=== PATIENT | male | born 1970 | race Caucasian/White ===

== ENCOUNTER → 2022-12-14 09:49 | Outpatient (BNVA) | payer BC, SELFPAY | PROVIDERS: PCP Registered Nurse; Visit Provider Dietitian, Registered | DX: E11.9 Type 2 diabetes mellitus without complications (principal); Z79.84 Long term (current) use of oral hypoglycemic drugs; Z71.3 Dietary counseling and surveillance | CPT/HCPCS: 97802 ==

== ENCOUNTER 2022-12-14 09:50 | Outpatient (AMB) | payer BC, SELFPAY ==
[2022-12-14 10:02] VITALS: BMI 34.3
--- NOTE | 2022-12-14 10:02 | A.OFFVIS_ITS ---
Intake VS Expanded 12/14/22 10:02 12/28/22 08:42 Height 5 ft 8 in 5 ft 8 in Weight 225 lb 4.999 oz 225 lb BMI 34.3 34.2 Intake Visit Reasons: DM HPI Nutrition Presentation Details PT presents for MNT fort T2DM. Patient was referred by Ashley Walls NP from [facility]. Patient reports he is currently on metformin 1000 mg twice a day and also on Trulicity 3 mg per week. 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 Pt reports gradually working on weight loss, reports he was 243 lbs > 4 m ago , by working on reducing simple sugars and keeping physically active. Participates in gym 4 times a week, 45 min to 1 hr Pt reports working on reducing simple carbs. Has 3 meals per day , working on choosing high fiber source sof foods Typical meal intake B: oatmeal made with low fat milk or , omelette with veg on whole wheat bread, water or diluted juice with water , L: sushi/ fruits D: steak potatoes, or potato , chicken Snack: fruits, cranberries , pastries HOW-Pqejjbq-Xm.Jeor Equation Height 5 ft 8 in Weight 225 lb Resting Metabolic Rate 1838.38 Calculated Activity Level Mild Activity Calories Needed to Maintain Weight 2527.77 Diagnosis Nutrition problem #1 overweight/obesity and food nutri know defi As related to (etiology) #1 diagnosis (t2dm, bmi at 34.2 on 11/2022) Monitoring/Goals Nutrition problem monitoring level of knowledge/skill and weight Nutrition goal/outcome list 3 high fiber foods (reduce foods with coloring) Learning/Education Readiness to learn good Stages of change action Educational materials provided Yes (meal planning , reduce food colorings ) Most Recent Diabetes Results: No Data to Display Assessment & Plan Assessment & Plan (1) T2DM (type 2 diabetes mellitus): Code(s): E11.9 - Type 2 diabetes mellitus without complications Qualifiers: Diabetes mellitus nursing home insulin use: without terminal worker use Plan: wt : 102 kg(11/2022) Est kcal needs as per MSJ: 2500 (40% carb, 30% protein/fat) Est fluid needs as per 25-30 ml/d: 2600 Est prot per day as per 1 g/kg bw: 102g Recommend fiber intake : 8-10 g per day and gradually increase to 25-28 g per day for women and 35-38 g for men or as tolerated Recommend sodium intake per day : less than 2000 mg Educated patient on: ( R = reviewed V = verbalizes understanding N/R = needs review N/A = not applicable * Food sources of carbohydrate, adequate serving sizes and its role in various health conditions: R V * Differences between complex carbohydrates a simple carbohydrates, role of fiber in diet: R V * Differences between types of fats and role in diet (mono on saturated fat fatty acids, saturated fatty acids, trans fats): R * Food sources of sodium in salt and healthy modifications for heart health in kidney health: R * Vitamins and minerals: R * Healthy plate method concept: R V * Physical activity: Benefits a precaution: R V * Hypoglycemia protocol (rule of 15): V * Dietary prevention of Hyperglycemia: V * food coloring /additives: R Patient Instructions: Follow healthy plate method at dinner , choosing and including high fiber sources of foods Reduce on foods with artificial food colorings Coding Level of Care Code Nutr Indiv Intake (09170) Diagnoses T2DM (type 2 diabetes mellitus) E11.9 Diabetes mellitus nursing home insulin use: without nursing home use Time Spent (min) 30
[2022-12-28 08:42] VITALS: BMI 34.2
== END 2022-12-14 10:39 | disposition home or self-care (01) ==
PROVIDERS: PCP Registered Nurse; Visit Provider Dietitian, Registered
DX: E11.9 Type 2 diabetes mellitus without complications (principal)

== ENCOUNTER 2023-06-13 11:14 | Outpatient (AMB) | payer BC, SELFPAY ==
[2023-06-13 11:21] VITALS: BMI 33.9
--- NOTE | 2023-06-13 11:21 | A.OFFVIS_ITS ---
Intake VS Expanded 06/13/23 11:21 Height 5 ft 8 in Weight 223 lb 1.725 oz BMI 33.9 Intake Visit Reasons: DM2/CONFIRMED HPI Nutrition Presentation Details Pt presents MNT f/u for T2DM Pt reports doing well, having 3 meals per day following healthy plate method > 50 % of the time Pt reports his FBG range from 80-90 mg/dl , 2 hours after meals less than 180 mg or less 100% of the time. Reports no hypoglycemia Pt reports working on reducing intake of foods with artificial colors. keeping hydrates > 64 oz of fluids per day choosing low sugar/caffeine free for most part fish at least twice/wk Increasing on physical activity - 1 hr cross training, 4 times/wk Most Recent Diabetes Results: No Data to Display Assessment & Plan Assessment & Plan (1) T2DM (type 2 diabetes mellitus): Code(s): E11.9 - Type 2 diabetes mellitus without complications Qualifiers: Diabetes mellitus custodial insulin use: without custodial use Plan: wt : 102 kg(11/2022), 101 kg 05/2023) Est kcal needs as per MSJ: 2500 (40% carb, 30% protein/fat) Est fluid needs as per 25-30 ml/d: 2600 Est prot per day as per 1 g/kg bw: 102g Recommend fiber intake : 8-10 g per day and gradually increase to 25-28 g per day for women and 35-38 g for men or as tolerated Recommend sodium intake per day : less than 2000 mg Educated patient on: ( R = reviewed V = verbalizes understanding N/R = needs review N/A = not applicable * Food sources of carbohydrate, adequate serving sizes and its role in various health conditions: R V * Differences between complex carbohydrates a simple carbohydrates, role of fiber in diet: R V * Differences between types of fats and role in diet (mono on saturated fat fatty acids, saturated fatty acids, trans fats): R * Food sources of sodium in salt and healthy modifications for heart health in kidney health: R * Vitamins and minerals: R * Healthy plate method concept: R V * Physical activity: Benefits a precaution: R V * Hypoglycemia protocol (rule of 15): V * Dietary prevention of Hyperglycemia: V * food coloring /additives: R Patient Instructions: Continue working on following healthy plate method Choose foods sources of monounsaturated fats over saturated fats, choosing foods with omega 3s ( fish, seeds, algae ) Keep phyiscally active goal 150 min/wk or more or as tolerated Coding Level of Care Code Nutr Indiv Subseq (59257) Diagnoses T2DM (type 2 diabetes mellitus) E11.9 Diabetes mellitus custodial insulin use: without alteration tailor apprentice use Time Spent (min) 25
== END 2023-06-13 11:47 | disposition home or self-care (01) ==
PROVIDERS: PCP Registered Nurse; Visit Provider Dietitian, Registered
DX: E11.9 Type 2 diabetes mellitus without complications (principal)

== ENCOUNTER → 2023-06-13 11:14 | Outpatient (BNVA) | payer BC, SELFPAY | PROVIDERS: PCP Registered Nurse; Visit Provider Dietitian, Registered | DX: E11.9 Type 2 diabetes mellitus without complications (principal); Z71.3 Dietary counseling and surveillance | CPT/HCPCS: 97803 ==

== ENCOUNTER 2023-12-12 11:14 | Outpatient (AMB) | payer BC, SELFPAY ==
--- NOTE | 2023-12-12 11:32 | A.OFFVIS_ITS ---
VS Expanded 12/12/23 11:33 Height 5 ft 8 in Weight 212 lb 8.41 oz BMI 32.3 Intake Visit Reasons: T2DM/CONFIRMED Nutrition Presentation Details: Pt presents for MNT f/u for T2DM Pt reports having good appetite Reports having had recent blood transfusion related to anemia. Pt has hx of chronic lymphocytic leukemia BS Monitoring Most Recent Diabetes Results: No Data to Display Assessment & Plan Assessment & Plan (1) T2DM (type 2 diabetes mellitus): Code(s): E11.9 - Type 2 diabetes mellitus without complications Category: Medical Qualifiers: Diabetes mellitus [facility] use: without [facility] use Plan: wt : 102 kg(11/2022), 101 kg 05/2023), 96kg (11/2023) Est kcal needs as per MSJ: 2500 (40% carb, 30% protein/fat) Est fluid needs as per 25-30 ml/d: 2600 Est prot per day as per 1 g/kg bw: 102g Recommend fiber intake : 8-10 g per day and gradually increase to 25-28 g per day for women and 35-38 g for men or as tolerated Recommend sodium intake per day : less than 2000 mg Educated patient on: ( R = reviewed V = verbalizes understanding N/R = needs review N/A = not applicable * Food sources of carbohydrate, adequate serving sizes and its role in various health conditions: R V * Differences between complex carbohydrates a simple carbohydrates, role of fiber in diet: R V * Differences between types of fats and role in diet (mono on saturated fat fatty acids, saturated fatty acids, trans fats): R * Food sources of sodium in salt and healthy modifications for heart health in kidney health: R * Vitamins and minerals: R * Healthy plate method concept: R V * Physical activity: Benefits a precaution: R V * Hypoglycemia protocol (rule of 15): V * Dietary prevention of Hyperglycemia: V * food coloring /additives: R Patient Instructions: Include iron rich foods in your diet along with vitamin c rich foods for better absorption see list of iron rich food options Coding Level of Care Code Nutr Indiv Subseq (39945) Diagnoses T2DM (type 2 diabetes mellitus) E11.9 Diabetes mellitus [facility] insulin use: without termite control technician use Time Spent (min) 20
[2023-12-12 11:33] VITALS: BMI 32.3
== END 2023-12-12 11:51 | disposition home or self-care (01) ==
PROVIDERS: PCP Registered Nurse; Visit Provider Dietitian, Registered
DX: E11.9 Type 2 diabetes mellitus without complications (principal)

== ENCOUNTER → 2023-12-12 11:14 | Outpatient (BNVA) | payer BC, SELFPAY | PROVIDERS: PCP Registered Nurse; Visit Provider Dietitian, Registered | DX: E11.9 Type 2 diabetes mellitus without complications (principal); Z71.3 Dietary counseling and surveillance | CPT/HCPCS: 97803 ==

== ENCOUNTER 2024-06-11 12:40 | Outpatient (AMB) | payer BC, SELFPAY ==
--- OUTSIDE RECORDS SUMMARY | 2024-06-11 12:59 | XMS_ITS ---
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 Immune Globulin Intravenous (IGIV) - every 3 weeks* Plan Start Date:03/07/2024 Plan Provider:Mary Post MD Linked Problems Hypogammaglobulinemia (CMS/H CC)Chronic lymphocytic leukemia (CMS/HCC) Treatment Medications No medications scheduled. OUTPATIENT TRANSFUSION (PRN) & OUTPATIENT TRANSFUSION ( ONCE)* Plan Start Date: 02/29/2024 Plan Provider:Mary Post MD Linked Problems Chronic lymphocytic leukemia (CMS/HCC) Treatment Medications No medications scheduled. Past Plans No past plan information found. Radiation Treatments * No radiation treatments are documented for this patient in [facility]. Treatments may have been administered in another system.
--- OUTSIDE RECORDS SUMMARY | 2024-06-11 12:59 | XMS_ITS | Encounter Summary ---
Author Organization [facility] [place] [facility] [place] [address] Care Team Providers Care Sr. Strategic Sourcing Manager Name Role Phone Alicia Pillai MD Primary Care Provider Encounter Details Date Type Department Care Team (Latest Contact Info) Description 02/15/2024 8:00 AM EDT Hospital Encounter TH HISTORIC ENCOUNTERS EASTERN CONVERSION ONLY Nonfamilial hypogammaglobulinemia (CMS/HCC) Social History Tobacco Use Types Packs/Day Years [...] Care Team (Late st Contact Info) Description 06/20/2024 9:30 AM EST Appointment [facility] [address] [place] [address] 2[address] [place] [phone] 07/28/2024 3:30 PM EDT Office Visit [facility] Hematology Oncology [address] [place] [phone] Mirian-Mary Baca MD [address] [place] [address] 09/29/2024 1:00 PM EDT Office Visit Adult Medicine - [place] [address] [place] [phone] Katt Jain PA [address] [place] [address] documented as of this encounter Procedures Procedure Name Priority Date/Time Associated Diagnosis Comments ECG 02/15/2024 documented in this encounter Results * ECG (02/15/2024) us Provider Onbase CV HISTORICAL CONV PROCEDURES Final Result documented in this encounter Visit Diagnoses Diagnosis Nonfamilial hypogammaglobulinemia (CMS/HCC) documented in this encounter Care Teams Sr. Strategic Sourcing Manager Relationship Specialty Start Date End Date Alicia Pillai MD [address] [place] [address] PCP - General Internal Medicine 02/04/15 documented as of this encounter
--- OUTSIDE RECORDS SUMMARY | 2024-06-11 12:59 | XMS_ITS | Encounter Summary ---
Author Organization [facility] [place] [address] Care Team Providers Care Edge Stitcher Name Role Phone Alicia Pillai MD Primary Care Provider [phone] Encounter Details Date Type Department Care Team (Latest Contact Info) Description 02/08/2024 9:30 AM EDT Hospital Encounter TH HISTORIC ENCOUNTERS EASTERN CONVERSION ONLY Chronic lymphocytic leukemia of B-cell type not having achieved remission (CMS/[facility]) Social History Tobacco Use Types Packs/Day Years [...] Info) Description 06/20/2024 9:30 AM EST Appointment [facility] [address] [facility] 2[address] [place] [address] 07/28/2024 3:30 PM EDT Office Visit [facility] Hematology Oncology [address] [place] [phone] Mirian-Mary Baca MD [address] [place] [address] 09/29/2024 1:00 PM EDT Office Visit Adult Medicine - [place] [address] [place] [phone] Katt Jain PA [address] [place] [address] documented as of this encounter Visit Diagnoses Diagnosis Chronic lymphocytic leukemia of B-cell type not having achieved remission (CMS/HCC) documented in this encounter Care Teams Edge Stitcher Relationship Specialty Start Date End Date Ailcia Pillai MD [address] [facility] [place] [address] PCP - General Internal Medicine 02/04/15 documented as of this encounter
--- OUTSIDE RECORDS SUMMARY | 2024-06-11 12:59 | XMS_ITS ---
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 Overview: Overview: Initial rx with Celebrex and sulfasalazine; changed to methotrexate by dermatology 06/29; change to Enbrel started 03/01 - stopped 12/03 when CLL detected Overview: Psoriasis with arthropathy Current Oncology Plans [facility] BCN OP RITUXIMAB (IV/SC) WEEKLY X4* Plan Start Date:12/05/2023 Plan Provider:Mary Jovel MD Linked Problems Chronic lymphocytic leukemia (HCC) Treatment Medications Current Day (Day 8 , Cycle 1 - Planned for 12/13/2023) Next Day (Day 15, Cycle 1 - Planned for 12/20/2023) acetaminophen (TYLENOL)albuterol (PROVENTIL)dexamethasone (DECADRON)dexamethasone (DECADRON) DOSE > 10 mg IVPBdexamethasone (DECADRON) IVPB in 50 mLdiphenhydrAMINE (BENADRYL)EPINEPHrinefamoti dine (PEPCID)famotidine (PF) (PEPCID)hydrocortisone (SOLU-CORTEF) IVHydrocortisone Sod Suc (PF) (Solu-CORTEF)riTUXimab-hyal uronidase (RITUXAN HYCELA) 1400-25752 MG -UT/11.7MLriTUXimab-pvvr (RUXIENCE) infusion (Outpatient record)Saline Flush 0.9 %sodium chloride (NS) 0.9 %sodium chloride 0.9% bolus (NS) acetaminophen (TYLENOL) tablet 650 mgalbuterol (PROVENTIL) nebulizer solution 2.5 mgdexAMETHasone Sodium Phosphate (DECADRON) 20 mg in sodium chloride (NS) 0.9 % IVPBdiphenhydrAMINE (BENADRYL) capsule 25 mgdiphenhydrAMINE (BENADRYL) injection 50 mgEPINEPHrine (Anaphylaxis) (ADRENALIN) 1 mg/ml (1:1000) inj amp/vial 0.3 mgfamotidine (PEPCID) 20 mg in water for injection, sterile 5 mL Injectionfamotidine (PEPCID) tablet 20 mghydrocortisone sodium succinate (Solu-CORTEF) injection (PF) 100 mgriTUXimab-hyaluronidase (RITUXAN HYCELA) 1400-53382 MG -UT/11.7ML subcutaneous injection 1,400 mgSaline Flush 0.9 % injection 1 Syringesodium chloride 0.9% (NS) infusionsodium chloride 0.9% bolus (NS) 500 mL acetaminophen (TYLENOL) tablet 650 mgalbuterol (PROVENTIL) nebulizer solution 2.5 mgdexamethasone (DECADRON) tablet 12 mgdexAMETHasone Sodium Phosphate (DECADRON) 20 mg in sodium chloride (NS) 0.9 % IVPBdiphenhydrAMINE (BENADRYL) capsule 25 mgdiphenhydrAMINE (BENADRYL) injection 50 mgEPINEPHrine (Anaphylaxis) (ADRENALIN) 1 mg/ml (1:1000) inj amp/vial 0.3 mgfamotidine (PEPCID) 20 mg in water for injection, sterile 5 mL Injectionfamotidine (PEPCID) tablet 20 mghydrocortisone sodium succinate (Solu-CORTEF) injection (PF) 100 mgriTUXimab-hyaluronidase (RITUXAN HYCELA) 1400-52258 MG -UT/11.7ML subcutaneous injection 1,400 mgSaline Flush 0.9 % injection 1 Syringesodium chloride 0.9% (NS) infusionsodium chloride 0.9% bolus (NS) 500 mL Other Current Plans [facility] IVIG (GAMMAGARD) (ADULT)* Plan Start Date:03/17/2022 Plan Provider:Mary Jovel MD Linked Problems Hypogammaglobulinemia (HCC) Treatment Medications acetaminophen (TYLENOL)albut ladonna (PROVENTIL)dexamethasone (DECADRON)diphenhydrAMINE (BENADRYL)EPINEPHrine (Anaphylaxis) (ADRENALIN)famotidine (PF) (PEPCID)Hydrocortisone Sod Suc (PF) (Solu-CORTEF)Immune Globulin (Human)immune globulin (Human) (GAMMAGARD)meperidine (DEMEROL) 25 MG/MLSaline Flush 0.9 %sodium chloride (NS) 0.9 %sodium chloride 0.9% bolus (NS) Past Plans Radiation Treatments * No radiation treatments are documented for this patient in [facility]. Treatments may have been administered in another system.
--- OUTSIDE RECORDS SUMMARY | 2024-06-11 12:59 | XMS_ITS | Encounter Summary ---
Author Organization [facility] [place] [address] Care Team Providers Care Drawing Kiln Operator Name Role Phone Alicia Pillai MD Primary Care Provider [phone] Encounter Details Date Type Department Care Team (Latest Contact Info) Description 02/01/2024 9:30 AM EDT Hospital Encounter TH HISTORIC ENCOUNTERS EASTERN CONVERSION ONLY Chronic lymphocytic leukemia of B-cell type not having achieved remission (CMS/[facility]) Social History Tobacco Use Types Packs/Day Years [...] 4:33 PM Encounter Date: 02/01/2024 Status: Signed Machinery Rigger: Jenni Clifton RN (Registered Nurse) Pt arrives [...] Info) Description 06/20/2024 9:30 AM EST Appointment [facility] [address] [place] [phone] 07/28/2024 3:30 PM EDT Office Visit [facility] Hematology Oncology [address] [place] [phone] Mirian-Mary Baca MD [address] [place] [address] 09/29/2024 1:00 PM EDT Office Visit Adult Medicine [facility] [address] [place] [phone] Katt Jain PA [address] [place] [address] documented as of this encounter Visit Diagnoses Diagnosis Chronic lymphocytic leukemia of B-cell type not having achieved remission (CMS/HCC) documented in this encounter Care Teams Drawing Kiln Operator Relationship Specialty Start Date End Date Alicia Pillai MD [address] [place] [address] PCP - General Internal Medicine 02/04/15 documented as of this encounter
--- OUTSIDE RECORDS SUMMARY | 2024-06-11 12:59 | XMS_ITS | Encounter Summary ---
Author Organization [facility] [place] [address] Care Team Providers Care Knot Cutter Name Role Phone Alicia Pillai MD Primary Care Provider [phone] Encounter Details Date Type Department Care Team [...] Info) Description 06/20/2024 9:30 AM EST Appointment [facility] [address] [phone] 07/28/2024 3:30 PM EDT Office Visit [facility] Hematology Oncology [address] [place] [phone] Mirian-Mary Baca MD [address] [place] [address] 09/29/2024 1:00 PM EDT Office Visit Adult Medicine - [place] [address] [place] [phone] Katt Jain PA [address] [place] [address] documented as of this encounter Visit Diagnoses Diagnosis Nonfamilial hypogammaglobulinemia (CMS/HCC) documented in this encounter Care Teams Knot Cutter Relationship Specialty Start Date End Date Alicia Pillai MD [address] [place] [address] PCP - General Internal Medicine 02/04/15 documented as of this encounter
--- OUTSIDE RECORDS SUMMARY | 2024-06-11 12:59 | XMS_ITS | Clinical Summary ---
Author Organization [facility] Address [address] [place] [address] Phone Care Team Providers Care Seating And Mobility Technologist Name Role Phone Alicia Pillai MD Primary Care Provider [phone] Allergies Active Allergy Reactions Criticality Noted Date Comments Amoxicillin Rash Medium 05/22/2010 Other Reaction(s): Rash/Dermatitis Moxifloxacin Nausea And Vomiting 10/12/2014 Other Reaction(s): OTHER Pt reports dizzyness, lightheadedness, passing out. Pt reports dizzyness, lightheadedness, passing out. Medications calcipotriene- betamethasone 0.005-0.064 % foam Apply 1 Application topically 1 (one) time each day. 8 Active celecoxib (CeleBREX) 200 mg capsule TAKE 1 CAPSULE EVERY DAY NEEDED FOR PAIN WITH FOOD 9 Active LORazepam (ATIVAN) 0.5 mg tablet Take 1 tablet (0.5 mg total) by mouth every 6 hours as needed. 4 Active omeprazole (PriLOSEC) [address] capsule Take 1 capsule (20 mg total) by mouth 1 (one) time each day. 4 Active predniSONE (DELTASONE) 20 mg tablet Take 1 tablet (20 mg total) by mouth. 4 Active metFORMIN (GLUCOPHAGE) 1,000 mg tablet TAKE 1 TABLET BY MOUTH TWICE A DAY 180 tablet 1 4 Active atorvastatin (LIPITOR) 10 mg tablet TAKE 1 TABLET BY MOUTH EVERY DAY 90 tablet 1 4 Active venetoclax (VENCLEXTA) 10 mg-50 mg- 100 mg Week 1 - Take 20 mg po once daily. Week 2 - Take 50 mg po once daily Week 3 - Take 100 mg po once daily Week 4 - Take 200 mg po once daily. Week 5 - Take 400 mg po once daily. 4 Active albuterol HFA (PROAIR HFA ; PROVENTIL HFA ; VENTOLIN HFA) 90 mcg/actuation inhaler INHALE 2 PUFFS INTO THE LUNGS EVERY 6 HOURS NEEDED FOR COUGH, WHEEZING OR SHORTNESS OF BREATH. 25.5 each 4 Active ipratropium (ATROVENT) 42 mcg (0.06 %) nasal spray SPRAY 2 SPRAYS BY NASAL ROUTE 4 TIMES DAILY. 45 mL 4 Active Venclexta 100 mg tablet TAKE 4 TABLETS (400 MG) BY MOUTH ONCE DAILY. TAKE WITH A MEAL AND WATER. 120 tablet 4 Active Venclexta 100 mg tablet TAKE 4 TABLETS (400 MG) BY MOUTH ONCE DAILY. TAKE WITH A MEAL AND WATER. 120 tablet 5 4 Active allopurinoL (ZYLOPRIM) 300 mg tablet TAKE 1 TABLET BY MOUTH EVERY DAY 90 tablet 5 Active sulfamethoxazo le-trimethopri m (BACTRIM,SEPTR A) 400-80 mg per tablet TAKE 1 TABLET BY MOUTH DAILY. 30 tablet 5 5 Active FreeStyle Inga 3 Plus Sensor device 1 EACH BY DOES NOT APPLY ROUTE EVERY 14 DAYS. 6 each 5 Active Trulicity 3 mg/0.5 mL pen injector injectionIndic ations:Type 2 diabetes mellitus without complication, without long-term current use of insulin ([facility]) Inject 0.5 mL (3 mg total) under the skin every 7 (seven) days. 6 mL 5 09/09/19 25 Active Trulicity 3 mg/0.5 mL pen injector injection INJECT 1 DEVICE INTO THE SKIN EVERY 7 DAYS. 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 Overview (03/06/2024): Initial rx with Celebrex and sulfasalazine; changed to methotrexate by dermatology 06/29; change to Enbrel started 03/01 - stopped 12/03 when CLL detected Encounters Date Type Department Care Team Description 06/10/2024 11:00 AM EST Office Visit Adult Medicine [address] [phone] Katt Jain PA Type 2 diabetes mellitus without complication, without long-term current use of insulin (CMS/HCC) (Primary Dx) 05/30/2024 12:00 PM EST - 05/30/2024 11:59 PM EST Hospital Encounter [facility] [address] [place] [phone] Mary Dill MD Chronic lymphocytic leukemia (CMS/HCC) (Primary Dx); Hypogammaglobulinemia (CMS/HCC); Anemia in neoplastic disease; Psoriasis with arthropathy (CMS/HCC) Discharge Disposition: Home or Self Care 05/30/2024 11:30 AM EST Office Visit [facility] H[facility] Oncology [address] [place] [phone] Mary Dill MD Chronic lymphocytic leukemia (CMS/HCC) (Primary Dx); Psoriasis with arthropathy (CMS/HCC); Anemia in neoplastic disease; Hypogammaglobulinemia (CMS/HCC); 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; Cervical lymphadenopathy 05/16/2024 9:30 AM EST - 05/16/2024 11:59 PM EST Hospital Encounter [facility] [address] [place] [phone] Mary Dill MD Chronic lymphocytic leukemia (CMS/HCC) (Primary Dx); Anemia in neoplastic disease; Cervical lymphadenopathy; Hypogammaglobulinemia (CMS/HCC); Transfusion-dependent anemia Discharge Disposition: Home or Self Care 05/09/2024 9:28 AM EST - 05/09/2024 11:59 PM EST Hospital Encounter [facility] [address] [place] [phone] Mary Dill MD Anemia in neoplastic disease (Primary Dx); Hypogammaglobulinemia (CMS/HCC); Chronic lymphocytic leukemia (CMS/HCC); Transfusion-dependent anemia Discharge Disposition: Home or Self Care 05/02/2024 9:30 AM EST - 05/02/2024 11:59 PM EST Hospital Encounter [facility] [address] [place] [phone] Mary Dill MD Chronic lymphocytic leukemia ([facility]/HCC) Discharge Disposition: Home or Self Care 04/25/2024 9:30 AM EST - 04/25/2024 11:59 PM EST Hospital Encounter [facility] [address] [place] [phone] Chronic lymphocytic leukemia (CMS/HCC) Discharge Disposition: Home or Self Care 04/18/2024 9:30 AM EST - 04/18/2024 11:59 PM EST Hospital Encounter [facility] [address] [place] [phone] Hypogammaglobulinemia (CMS/HCC) (Primary Dx); Chronic lymphocytic leukemia (CMS/HCC); Anemia in neoplastic disease; Cervical lymphadenopathy; Transfusion-dependent anemia Discharge Disposition: Home or Self Care 04/11/2024 9:30 AM EST - 04/11/2024 11:59 PM EST Hospital Encounter [facility] [address] [place] [phone] Chronic lymphocytic leukemia (CMS/HCC) Discharge Disposition: Home or Self Care 04/04/2024 11:30 AM EST Office Visit [facility] Hematology Oncology [address] [place] [phone] Mary Dill MD Chronic lymphocytic leukemia (CMS/HCC) (Primary Dx); Hypogammaglobulinemia (CMS/HCC); 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; Anemia in neoplastic disease; Transfusion-dependent anemia; Psoriasis with arthropathy (CMS/HCC) 04/04/2024 9:30 AM EST - 04/04/2024 11:59 PM EST Hospital Encounter [address] [phone] Chronic lymphocytic leukemia (CMS/HCC) (Primary Dx) Discharge Disposition: Home or Self Care 03/28/2024 9:30 AM EST - 03/28/2024 11:59 PM EST Hospital Encounter [address] [phone] Chronic lymphocytic leukemia (CMS/HCC) (Primary Dx); Hypogammaglobulinemia (CMS/HCC); Anemia in neoplastic disease; Cervical lymphadenopathy; Transfusion-dependent anemia Discharge Disposition: Home or Self Care 03/21/2024 9:30 AM EST - 03/21/2024 11:59 PM EST Hospital Encounter [address] [phone] Chronic lymphocytic leukemia (CMS/HCC) (Primary Dx) Discharge Disposition: Home or Self Care 03/17/2024 9:30 AM EST - 03/17/2024 11:59 PM EST Hospital Encounter [address] [phone] Chronic lymphocytic leukemia (CMS/HCC) (Primary Dx); Anemia in neoplastic disease; Cervical lymphadenopathy; Hypogammaglobulinemia (CMS/HCC); Transfusion-dependent anemia Discharge Disposition: Home or Self Care 03/14/2024 9:30 AM EST - 03/14/2024 11:59 PM EST Hospital Encounter [facility] [address] [place] [phone] Chronic lymphocytic leukemia (CMS/HCC) (Primary Dx); Anemia in neoplastic disease; Cervical lymphadenopathy; Hypogammaglobulinemia (CMS/HCC); Transfusion-dependent anemia Discharge Disposition: Home or Self Care from Last 3 Months Immunizations Name Administration Dates Next Due Pfizer SARS-CoV-2 COVID-19, mRNA, LNP-S, preservative free 08/26/2020,08/05/2020 Medical History Medical History Date Comments Hypogammaglobulinemia (CMS/HCC) 02/03/2024 Social History Tobacco Use Types Packs/Day Years Used Date Smoking Tobacco: Never Smokeless Tobacco: Never Tobacco Cessation:Counseling Given: Not Answered Alcohol Use Standard Drinks/Week Comments Yes 0 (1 standard drink = 0.6 oz pur e alcohol) Sex and Gender Information Value Date Recorded Sex Assigned at Male 05/02/2024 9:33 AM EST Legal Sex Male 3:23 AM EST Gender Identity Male 05/02/2024 9:33 AM EST Sexual Orientation Choose not to disclose 2024 9:33 AM EST Obstetrics History Last Filed Vital Signs Vital Sign Reading Time Taken Comments Blood Pressure 110/64 06/10/2024 10:52 AM EST Pulse 68 06/10/2024 10:52 AM EST Temperature 36.6 ??C (97.8 ??F) 06/10/2024 10:[address] Respiratory Rate 18 05/30/2024 12:20 PM EST Oxygen Saturation 98% 05/30/2024 12:20 PM EST Inhaled Oxygen Concentration - - Weight 95.7 kg (211 lb) 06/10/2024 10:52 AM EST Height 174 cm (5' 8.5 ) 06/10/2024 10:52 AM EST Body Mass Index 31.62 06/10/2024 10:52 AM EST Plan of Treatment Upcoming Encounters Date Type Department Care Team (Late st Contact Info) Description 06/20/2024 9:30 AM EST Appointment [address] [phone] 07/28/2024 3:30 PM EDT Office Visit [facility]cology [address] [place] [phone] Mary Post MD [address] [place] [phone] 09/29/2024 1:00 PM EDT Office Visit Adult Medicine - [place] [address] [place] [phone] Katt Jain PA [address] [place] [address] Health Maintenance Due Date Last Done Comments Diabetes: Annual Foot Exam 1978 Diabetes: Annual Retina Eye Exam 1978 Hepatitis B Vaccines (1 of 3 - 19+ 3-dose series) 1987 Zoster Vaccines (1 of 2) 1987 Pneumococcal Vaccine: 50+ Years (2 of 2 - PCV) 01/02/2015 01/02/2014 Pneumococcal Vaccine: Pediatrics (0 to 5 Years) and At-Risk Patients (6 to 64 Years) (2 of 2 - PCV) 01/02/2015 01/02/2014 COVID-19 Vaccine (3 - Pfizer risk series) 09/23/2020 08/26/2020, 08/05/2020 Colorectal Cancer Screening: Colonoscopy 03/31/2022 Depression Screening 03/31/2022 HIV Screening 03/31/2022 Hepatitis C Screening 03/31/2022 Social Influencers of Health Screening 03/31/2022 Diabetes: Annual Urine Albumin-Creatinine Ratio (uACR) 04/02/2022 Influenza Vaccine (#1) 2023 , 01/05/2022, 04/24/2021, Additional history exists Diabetes: Blood Sugar Control Test (HGBA1C) 05/30/2024 11/28/2023 Diabetes: Annual GFR (Glomerular Filtration Rate) 05/30/2025 05/30/2024, 05/22/2024, 05/16/2024, Additional history exists DTaP,Tdap,and Td Vaccines (3 - Td or Tdap) 11/15/2028 11/15/2018, 09/26/2004 Cholesterol Screening (Lipid Panel) 01/28/2029 01/29/2024 HIB Vaccines Aged Out No longer eligi ble based on patient's age to complete this topic HPV Vaccines Aged Out No longer eligi ble based on patient's age to complete this topic Hepatitis A Vaccines Aged Out No long er eligible based on patient's age to complete this topic IPV Vaccines Aged Out No longer eligi ble based on patient's age to complete this topic MMR Vaccines Aged Out No longer eligi ble based on patient's age to complete this topic Meningococcal ACWY Vaccine Aged Out N o longer eligible based on patient's age to complete this topic Meningococcal B Vacine Aged Out No lo nger eligible based on patient's age to complete this topic RSV Immunization Patients Under 20 months Aged Out No longer eligible based on patient's age to complete this topic Varicella Vaccines Aged Out No longer eligible based on patient's age to complete this topic Procedures Procedure Name Priority Date/Time Associated Diagnosis Comments CBC WITH AUTO DIFFERENTIAL STAT 05/30/2024 12:10 PM EST Chronic lymphocytic leukemia (CMS/HCC) C-REACTIVE PROTEIN Routine 05/30/2024 12 :10 PM EST Psoriasis with arthropathy (CMS/HCC) SEDIMENTATION RATE Routine 05/30/2024 12 :10 PM EST Psoriasis with arthropathy (CMS/HCC) IRON AND TIBC Routine 05/30/2024 12:10 PM EST Chronic lymphocytic leukemia (CMS/HCC) Anemia in neoplastic disease FERRITIN Routine 05/30/2024 12:10 PM EST Chronic lymphocytic leukemia (CMS/HCC) Anemia in neoplastic disease CBC AND DIFFERENTIAL STAT 05/30/2024 12:10 PM EST Chronic lymphocytic leukemia (CMS/HCC) LACTATE DEHYDROGENASE STAT 05/30/2024 12:10 PM EST Chronic lymphocytic leukemia (CMS/HCC) URIC ACID STAT 05/30/2024 12:10 PM EST Chronic lymphocytic leukemia (CMS/HCC) COMPREHENSIVE METABOLIC PANEL STAT 05/30/2024 12:10 PM EST Chronic lymphocytic leukemia (CMS/HCC) CBC WITH AUTO DIFFERENTIAL STAT 05/16/2024 10:07 AM EST Chronic lymphocytic leukemia (CMS/HCC) TYPE AND SCREEN STAT 05/16/2024 10:07 AM EST Chronic lymphocytic leukemia (CMS/HCC) CBC AND DIFFERENTIAL STAT 05/16/2024 10:07 AM EST Chronic lymphocytic leukemia (CMS/HCC) LACTATE DEHYDROGENASE STAT 05/16/2024 10:07 AM EST Chronic lymphocytic leukemia (CMS/HCC) URIC ACID STAT 05/16/2024 10:07 AM EST Chronic lymphocytic leukemia (CMS/HCC) COMPREHENSIVE METABOLIC PANEL STAT 05/16/2024 10:07 AM EST Chronic lymphocytic leukemia (CMS/HCC) CBC WITH AUTO DIFFERENTIAL STAT 05/09/2024 10:00 AM EST Chronic lymphocytic leukemia (CMS/HCC) Anemia in neoplastic disease Transfusion-depende nt anemia TYPE AND SCREEN STAT 05/09/2024 10:00 AM EST Chronic lymphocytic leukemia (CMS/HCC) Anemia in neoplastic disease Transfusion-depende nt anemia CBC AND DIFFERENTIAL STAT 05/09/2024 10:00 AM EST Chronic lymphocytic leukemia (CMS/HCC) Anemia in neoplastic disease Transfusion-depende nt anemia LACTATE DEHYDROGENASE STAT 05/09/2024 10:00 AM EST Chronic lymphocytic leukemia (CMS/HCC) URIC ACID STAT 05/09/2024 10:00 AM EST Chronic lymphocytic leukemia (CMS/HCC) COMPREHENSIVE METABOLIC PANEL STAT 05/09/2024 10:00 AM EST Chronic lymphocytic leukemia (CMS/HCC) TYPE AND SCREEN Routine 05/02/2024 9:48 AM EST LACTATE DEHYDROGENASE STAT 05/02/2024 9:41 AM EST Chronic lymphocytic leukemia (CMS/HCC) URIC ACID STAT 05/02/2024 9:41 AM EST Chronic lymphocytic leukemia (CMS/HCC) COMPREHENSIVE METABOLIC PANEL STAT 05/02/2024 9:41 AM EST Chronic lymphocytic leukemia (CMS/HCC) CBC WITH AUTO DIFFERENTIAL STAT 05/02/2024 9:41 AM EST CBC AND DIFFERENTIAL STAT 05/02/2024 9:41 AM EST CBC WITH AUTO DIFFERENTIAL Routine 04/25/2024 9:42 AM EST Chronic lymphocytic leukemia (CMS/HCC) URIC ACID Routine 04/25/2024 9:42 AM EST Chronic lymphocytic leukemia (CMS/HCC) CBC AND DIFFERENTIAL Routine 04/25/2024 9:42 AM EST Chronic lymphocytic leukemia (CMS/HCC) COMPREHENSIVE METABOLIC PANEL Routine 04/25/2024 9:42 AM EST Chronic lymphocytic leukemia (CMS/HCC) LACTATE DEHYDROGENASE Routine 04/25/2024 9:42 AM EST Chronic lymphocytic leukemia (CMS/HCC) TYPE AND SCREEN STAT 04/25/2024 9:42 AM EST Chronic lymphocytic leukemia (CMS/HCC) CBC WITH AUTO DIFFERENTIAL STAT 04/18/2024 9:45 AM EST Chronic lymphocytic leukemia (CMS/HCC) TYPE AND SCREEN STAT 04/18/2024 9:45 AM EST Chronic lymphocytic leukemia (CMS/HCC) CBC AND DIFFERENTIAL STAT 04/18/2024 9:45 AM EST Chronic lymphocytic leukemia (CMS/HCC) LACTATE DEHYDROGENASE STAT 04/18/2024 9:45 AM EST Chronic lymphocytic leukemia (CMS/HCC) URIC ACID STAT 04/18/2024 9:45 AM EST Chronic lymphocytic leukemia (CMS/HCC) COMPREHENSIVE METABOLIC PANEL STAT 04/18/2024 9:45 AM EST Chronic lymphocytic leukemia (CMS/HCC) CBC WITH AUTO DIFFERENTIAL STAT 04/11/2024 9:39 AM EST Chronic lymphocytic leukemia (CMS/HCC) TYPE AND SCREEN STAT 04/11/2024 9:39 AM EST Chronic lymphocytic leukemia (CMS/HCC) CBC AND DIFFERENTIAL STAT 04/11/2024 9:39 AM EST Chronic lymphocytic leukemia (CMS/HCC) LACTATE DEHYDROGENASE STAT 04/11/2024 9:39 AM EST Chronic lymphocytic leukemia (CMS/HCC) URIC ACID STAT 04/11/2024 9:39 AM EST Chronic lymphocytic leukemia (CMS/HCC) COMPREHENSIVE METABOLIC PANEL STAT 04/11/2024 9:39 AM EST Chronic lymphocytic leukemia (CMS/HCC) CBC WITH AUTO DIFFERENTIAL STAT 04/04/2024 9:43 AM EST Chronic lymphocytic leukemia (CMS/HCC) TYPE AND SCREEN STAT 04/04/2024 9:43 AM EST Chronic lymphocytic leukemia (CMS/HCC) CBC AND DIFFERENTIAL STAT 04/04/2024 9:43 AM EST Chronic lymphocytic leukemia (CMS/HCC) LACTATE DEHYDROGENASE STAT 04/04/2024 9:43 AM EST Chronic lymphocytic leukemia (CMS/HCC) URIC ACID STAT 04/04/2024 9:43 AM EST Chronic lymphocytic leukemia (CMS/HCC) COMPREHENSIVE METABOLIC PANEL STAT 04/04/2024 9:43 AM EST Chronic lymphocytic leukemia (CMS/HCC) TRANSFUSE RED BLOOD CELLS Routine 03/28/2024 1:14 PM EST Chronic lymphocytic leukemia (CMS/HCC) PREPARE RBC Routine 03/28/2024 12:03 PM EST Chronic lymphocytic leukemia (CMS/HCC) CBC WITH AUTO DIFFERENTIAL STAT 03/28/2024 9:55 AM EST Chronic lymphocytic leukemia (CMS/HCC) CBC AND DIFFERENTIAL STAT 03/28/2024 9:55 AM EST Chronic lymphocytic leukemia (CMS/HCC) TYPE AND SCREEN STAT 03/28/2024 9:55 AM EST Chronic lymphocytic leukemia (CMS/HCC) LACTATE DEHYDROGENASE STAT 03/28/2024 9:55 AM EST Chronic lymphocytic leukemia (CMS/HCC) URIC ACID STAT 03/28/2024 9:55 AM EST Chronic lymphocytic leukemia (CMS/HCC) COMPREHENSIVE METABOLIC PANEL STAT 03/28/2024 9:55 AM EST Chronic lymphocytic leukemia (CMS/HCC) TRANSFUSE RED BLOOD CELLS Routine 03/21/2024 11:22 AM EST Chronic lymphocytic leukemia (CMS/HCC) PREPARE RBC Routine 03/21/2024 10:42 AM EST Chronic lymphocytic leukemia (CMS/HCC) CBC WITH AUTO DIFFERENTIAL STAT 03/21/2024 9:50 AM EST Chronic lymphocytic leukemia (CMS/HCC) TYPE AND SCREEN STAT 03/21/2024 9:50 AM EST Chronic lymphocytic leukemia (CMS/HCC) CBC AND DIFFERENTIAL STAT 03/21/2024 9:50 AM EST Chronic lymphocytic leukemia (CMS/HCC) LACTATE DEHYDROGENASE STAT 03/21/2024 9:50 AM EST Chronic lymphocytic leukemia (CMS/HCC) URIC ACID STAT 03/21/2024 9:50 AM EST Chronic lymphocytic leukemia (CMS/HCC) COMPREHENSIVE METABOLIC PANEL STAT 03/21/2024 9:50 AM EST Chronic lymphocytic leukemia (CMS/HCC) TRANSFUSE RED BLOOD CELLS Routine 03/17/2024 11:47 AM EST Chronic lymphocytic leukemia (CMS/HCC) PREPARE RBC Routine 03/17/2024 10:51 AM EST Chronic lymphocytic leukemia (CMS/HCC) CBC WITH AUTO DIFFERENTIAL STAT 03/17/2024 9:56 AM EST Chronic lymphocytic leukemia (CMS/HCC) TYPE AND SCREEN Routine 03/17/2024 9:56 AM EST Chronic lymphocytic leukemia (CMS/HCC) CBC AND DIFFERENTIAL STAT 03/17/2024 9:56 AM EST Chronic lymphocytic leukemia (CMS/HCC) PREPARE PLATELETS Routine 03/14/2024 12: 19 PM EST Chronic lymphocytic leukemia (CMS/HCC) PREPARE RBC Routine 03/14/2024 10:52 AM EST Chronic lymphocytic leukemia (CMS/HCC) PREPARE RBC Routine 03/14/2024 10:51 AM EST Chronic lymphocytic leukemia (CMS/HCC) CBC WITH AUTO DIFFERENTIAL STAT 03/14/2024 9:46 AM EST Chronic lymphocytic leukemia (CMS/HCC) TYPE AND SCREEN STAT 03/14/2024 9:46 AM EST Chronic lymphocytic leukemia (CMS/HCC) CBC AND DIFFERENTIAL STAT 03/14/2024 9:46 AM EST Chronic lymphocytic leukemia (CMS/HCC) LACTATE DEHYDROGENASE STAT 03/14/2024 9:46 AM EST Chronic lymphocytic leukemia (CMS/HCC) URIC ACID STAT 03/14/2024 9:46 AM EST Chronic lymphocytic leukemia (CMS/HCC) COMPREHENSIVE METABOLIC PANEL STAT 03/14/2024 9:46 AM EST Chronic lymphocytic leukemia (CMS/HCC) from Last 3 Months Results * (ABNORMAL) CBC auto differential (05/30/2024 12:10 PM EST) Only the most recent of12 resultswithin the time period is included. [facility] Signature WBC 6.7 4.8 - 10.8 K/mcL LAB HEMETOLOGY METHOD 05/30/2024 12:43 PM [facility] RBC 4.60 4.50 - 5.50 M/mcL LAB HEMETOLOGY METHOD 05/30/2024 12:43 PM [facility] Hemoglobin 14.1 13.5 - 17.5 g/dL LAB HEMETOLOGY METHOD 05/30/2024 12:43 PM [facility] Hematocrit 41.2(L) 42.0 - 54.0 % LAB HEMETOLOGY METHOD 05/30/2024 12:43 PM [facility] MCV 90.0 79.0 - 98.0 FL LAB HEMETOLOGY METHOD 05/30/2024 12:43 PM [facility] MCH 30.8 27.0 - 32.0 pcg LAB HEMETOLOGY METHOD 05/30/2024 12:43 PM [facility] MCHC 34.2 32.0 - 37.0 g/dL LAB HEMETOLOGY METHOD 05/30/2024 12:43 PM [facility] RDW 13.3 11.0 - 15.0 % LAB HEMETOLOGY METHOD 05/30/2024 12:43 PM [facility] Platelets 145 130 - 400 K/mcL LAB HEMETOLOGY METHOD 05/30/2024 12:43 PM [facility] MPV 9.5 7.0 - 11.0 FL LAB HEMETOLOGY METHOD 05/30/2024 12:43 PM [facility] NRBC 0.0 <1.0 % LAB HEMETOLOGY METHOD 05/30/2024 12:43 PM [facility] NRBC Absolute 0.00 <0.10 K/mcL LAB HEMETOLOGY METHOD 05/30/2024 12:43 PM [facility] Neutrophils Relative 62.8 % LAB HEMETOLOGY METHOD 05/30/2024 12:43 PM [facility] Lymphocytes Relative 25.9 % LAB HEMETOLOGY METHOD 05/30/2024 12:43 PM [facility] Monocytes Relative 10.5 % LAB HEMETOLOGY METHOD 05/30/2024 12:43 PM [facility] Eosinophils Relative 0.0 % LAB HEMETOLOGY METHOD 05/30/2024 12:43 PM [facility] Basophils Relative 0.2 % LAB HEMETOLOGY METHOD 05/30/2024 12:43 PM [facility] Immature Granulocytes Relative 0.6 % LAB HEMETOLOGY METHOD 05/30/2024 12:43 PM [facility] Neutrophils Absolute 4.18 1.50 - 7.00 K/mcL LAB HEMETOLOGY METHOD 05/30/2024 12:43 PM [facility] Lymphocytes Absolute 1.72 1.00 - 5.00 K/mcL LAB HEMETOLOGY METHOD 05/30/2024 12:43 PM [facility] Monocytes Absolute 0.70 0.20 - 1.00 K/mcL LAB HEMETOLOGY METHOD 05/30/2024 12:43 PM [facility] Eosinophils Absolute 0.00 0.00 - 0.50 K/mcL LAB HEMETOLOGY METHOD 05/30/2024 12:43 PM [facility] Basophils Absolute 0.01 0.00 - 0.20 K/mcL LAB HEMETOLOGY METHOD 05/30/2024 12:43 PM [facility] Immature Granulocytes Absolute 0.04(H) 0.00 - 0.03 K/mcL LAB HEMETOLOGY METHOD 05/30/2024 12:43 PM EST [facility] Blood Venous blood specimen / Unknown Venipuncture / Unknown 05/30/2024 12:10 PM EST 05/30/2024 12:33 PM EST us Mary Post MD LAB BLOOD ORDERABLE S Final Result Performing Organization Address [facility]/ZIP Co de Phone Number [facility] [address] [place] [address], [place] [phone] * Iron and TIBC (05/30/2024 12:10 PM EST) Iron 80 50 - 160 mcg/dL LAB CHEMISTRY METHOD 05/30/2024 1:05 PM [facility] TIBC 325 250 - 450 mcg/dL LAB CHEMISTRY METHOD 05/30/2024 1:05 PM [facility] Iron Saturation 25 20 - 50 % LAB CHEMISTRY METHOD 05/30/2024 1:05 PM [facility] Blood Venous blood specimen / Unknown Venipuncture / Unknown 05/30/2024 12:10 PM EST 05/30/2024 12:33 PM EST us Mary Post MD LAB BLOOD ORDERABLE S Final Result Performing Organization Address City/[facility]/ZIP Co de Phone Number [facility] [address] [place] [address], [place] [phone] * Sedimentation rate (05/30/2024 12:10 PM EST) Sed Rate 10 0 - 20 mm/hr LAB HEMETOLOGY METHOD 05/30/2024 1:07 PM EST [facility] Blood Venous blood specimen / Unknown Venipuncture / Unknown 05/30/2024 12:10 PM EST 05/30/2024 12:33 PM EST us Subramony Subramonia-Keven MD LAB BLOOD ORDERABLE S Final Result Performing Organization Address [facility]/ZIP Co de Phone Number [facility] [address] [place] [address], * C-reactive protein (05/30/2024 12:10 PM EST) C-Reactive Protein 0.32 <=0.50 mg/dL LAB CHEMISTRY METHOD 05/30/2024 1:05 PM EST [facility] Blood Venous blood specimen / Unknown Venipuncture / Unknown 05/30/2024 12:10 PM EST 05/30/2024 12:33 PM EST us Mary Post MD LAB BLOOD ORDERABLE S Final Result Performing Organization Address [facility] Co de Phone Number [facility] [address] [place] [address], * (ABNORMAL) Uric acid (05/30/2024 12:10 PM EST) Only the most recent of11 resultswithin the time period is included. [facility] Uric Acid 2.8(L) 3.7 - 9.2 mg/dL LAB CHEMISTRY METHOD 05/30/2024 1:05 PM EST [facility] Blood Venous blood specimen / Unknown Venipuncture / Unknown 05/30/2024 12:10 PM EST 05/30/2024 12:33 PM EST us Mary Post MD LAB BLOOD ORDERABLE S Final Result Performing Organization Address [facility] Co de Phone Number [facility] [address] [place] [address], [place] [phone] * Lactate dehydrogenase (05/30/2024 12:10 PM EST) Only the most recent of11 resultswithin the time period is included. Pathologist [facility] LDH 225 120 - 246 unit/L LAB CHEMISTRY METHOD 05/30/2024 1:23 PM EST [facility] Comment:Results verified by repeat testing Blood Venous blood specimen / Unknown Venipuncture / Unknown 05/30/2024 12:10 PM EST 05/30/2024 12:33 PM EST us Mary Post MD LAB BLOOD ORDERABLE S Final Result Performing Organization Address City/[facility]/ZIP Co de Phone Number [facility] [address] [place] [address], [place] [phone] * (ABNORMAL) Ferritin (05/30/2024 12:10 PM EST) [facility] Ferritin 738(H) 26 - 388 ng/mL LAB CHEMISTRY METHOD 05/30/2024 1:05 PM EST [facility] Blood Venous blood specimen / Unknown Venipuncture / Unknown 05/30/2024 12:10 PM EST 05/30/2024 12:33 PM EST us Mary Post MD LAB BLOOD ORDERABLE S Final Result Performing Organization Address [facility] Co de Phone Number [facility] [address] [place] [address], [place] [phone] * (ABNORMAL) Comprehensive metabolic panel (05/30/2024 12:10 PM EST) Only the most recent of11 resultswithin the time period is included. [facility] Sodium 139 133 - 145 mmol/L LAB CHEMISTRY METHOD 05/30/2024 1:05 PM EST [facility] Potassium 4.4 3.5 - 5.5 mmol/L LAB CHEMISTRY METHOD 05/30/2024 1:05 PM EST [facility] Chloride 105 96 - 110 mmol/L LAB CHEMISTRY METHOD 05/30/2024 1:05 PM EST [facility] CO2 27 21 - 32 mmol/L LAB CHEMISTRY METHOD 05/30/2024 1:05 PM [facility] Anion Gap 7 3 - 11 LAB CHEMISTRY METHOD 05/30/2024 1:05 PM [facility] Glucose 133(H) 70 - 100 mg/dL LAB CHEMISTRY METHOD 05/30/2024 1:05 PM [facility] BUN 17 5 - 25 mg/dL LAB CHEMISTRY METHOD 05/30/2024 1:05 PM [facility] Creatinine 0.77 0.70 - 1.30 mg/dL LAB CHEMISTRY METHOD 05/30/2024 1:05 PM [facility] eGFR 106 >=60 mL/min/1. 73m2 LAB CHEMISTRY METHOD 05/30/2024 1:05 PM [facility] Comment:Calculation based on the??Chronic Kidney Disease Epidemiology Collaboration (CKD-EPI) equation refit??without adjustment for race. BUN/Creatinine Ratio 22.1 LAB CHEMISTRY METHOD 05/30/2024 1:05 PM [facility] Calcium 9.6 8.5 - 10.5 mg/dL LAB CHEMISTRY METHOD 05/30/2024 1:05 PM [facility] AST (SGOT) 22 10 - 42 unit/L LAB CHEMISTRY METHOD 05/30/2024 1:05 PM [facility] ALT (SGPT) 44 10 - 60 unit/L LAB CHEMISTRY METHOD 05/30/2024 1:05 PM [facility] Alkaline Phosphatase 95 42 - 121 unit/L LAB CHEMISTRY METHOD 05/30/2024 1:05 PM [facility] Total Protein 6.9 6.0 - 8.0 g/dL LAB CHEMISTRY METHOD 05/30/2024 1:05 PM [facility] Albumin 4.0 3.2 - 5.0 g/dL LAB CHEMISTRY METHOD 05/30/2024 1:05 PM [facility] Total Bilirubin 0.5 0.0 - 1.4 mg/dL LAB CHEMISTRY METHOD 05/30/2024 1:05 PM EST [facility] Blood Venous blood specimen / Unknown Venipuncture / Unknown 05/30/2024 12:10 PM EST 05/30/2024 12:33 PM EST us Mary Post MD LAB BLOOD ORDERABLE S Final Result Performing Organization Address [facility] de Phone Number [facility] [address] [place] [address], [place] [phone] * Type and screen (05/16/2024 10:07 AM EST) Only the most recent of11 resultswithin the time period is included. Pathologist [facility] ABO Group A 05/16/2024 11:07 AM EST [facility] Rh Type Positive 05/16/2024 11:07 AM EST [facility] Antibody Screen Negative 05/16/2024 11:07 AM EST [facility] Blood Venous blood specimen / Unknown Venipuncture / Unknown 05/16/2024 10:07 AM EST 05/16/2024 10:16 AM EST us Mary Post MD LAB BLOOD BANK TEST ORDERABLES Final Result Performing Organization Address [facility] de Phone Number [facility] [address] [place] [address], [place] [phone] * Transfuse RBC (03/28/2024 4:02 PM EST) Only the most recent of5 resultswithin the time period is included. Result Nate Post MD BLOOD TRANSFUSION O RDERABLES Final Result * Prepare RBC: 1 Units (03/28/2024 12:03 PM EST) Only the most recent of5 resultswithin the time period is included. Product Code [id number] 03/28/2024 1:16 PM EST [facility] Unit Number [id number] 03/28/20 1:16 PM EST [facility] Crossmatch Compatible 03/28/2024 12:08 PM EST [facility] Dispense Status Transfused 03/28/2024 1:16 PM EST [facility] Unit ABO Rh APOS 03/28/2024 1:16 PM EST [facility] Unit Expiration Date Time [id number] 03/28/2024 1:16 PM EST [facility] Unit Blood Type 6200 03/28/2024 1:16 PM [facility] Blood Venous blood specimen / Unknown 03/28/2024 12:03 PM EST 03/28/2024 10:30 AM EST us Traci Steele MD BLOOD BANK PRODUCT ORDERABLE S Final Result [facility] [address] [place] [address], * Transfuse platelets (03/14/2024 5:43 PM EST) Emigdio Grajeda MD BLOOD TRANSFUSION ORDERABLE S Final Result * Prepare platelets: 1 Product (03/14/2024 12:19 PM EST) Product Code [id number] 03/14/2024 5:00 PM EST [facility] Unit Number [id number] 03/14/20 5:00 PM EST [facility] Dispense Status Transfused 03/14/2024 5:00 PM EST [facility] Unit ABO Rh APOS 03/14/2024 5:00 PM EST [facility] Unit Expiration Date Time [id number] 03/14/2024 5:00 PM EST [facility] Unit Blood Type 6200 03/14/2024 5:00 PM EST [facility] Blood Venous blood specimen / Unknown 03/14/2024 12:19 PM EST Mary Post MD BLOOD BANK PRODUCT ORDERABLES Final Result [facility] [address] [place] [address], [place] [phone] from Last 3 Months Insurance [facility] Care Teams Seating And Mobility Technologist Relationship Specialty Start Date End Date Alicia Pillai MD [address] [place] [id number] PCP - General Internal Medicine 02/04/15
--- OUTSIDE RECORDS SUMMARY | 2024-06-11 12:59 | XMS_ITS | Clinical Summary ---
Author Organization [facility] Address [address] [place] [address] Care Team Providers Care Help Desk Operator Name Role Phone Fernando Pillai MD Primary Care Provider Allergies Active Allergy Reactions Criticality Noted Date Comments Amoxicillin Rash Medium 05/22/2010 Moxifloxacin Nausea And Vomiting High 10/12/2014 Pt reports dizzyness, lightheadedness, passing out. Medications Medication Sig Dispensed Refills Start Date End Date Status celecoxib (CeleBREX) 200 MG capsule Take 1 capsule (200 mg total) by mouth 2 (two) times a day. 0 02/19/2019 Active Calcipotriene-Beta meth Diprop 0.005-0.064 % FOAM Apply 1 application topically daily. 0 02/19/2018 Active Vit-Fe Fumarate-FA (M-VIT PO) Take 1 tablet by mouth daily. 0 Active metFORMIN (GLUCOPHAGE) tablet 500 mg PLEASE SEE ATTACHED FOR DETAILED DIRECTIONS 0 07/08/2020 Active Trulicity 0.75 MG/0.5ML subcutaneous pen-injector INJECT 0.75 MG INTO THE SKIN ONCE A WEEK. 0 01/05/2022 Active atorvastatin (LIPITOR) tablet 10 mg Take 1 tablet (10 mg total) by mouth daily. 0 01/05/2022 Active Zanubrutinib (Brukinsa) 80 MG CAPS Take 160 mg by mouth 2 (two) times a day 120 capsule 11 09/11/2023 Active Additional Information Patient not taking.Reason: Other (completed treatment), Reported on 02/22/2024 sulfamethoxazole-t rimethoprim (BACTRIM) 400-80 MG per tablet TAKE 1 TABLET BY MOUTH DAILY. 30 tablet 5 11/05/2023 Active omeprazole (PriLOSEC) 20 MG capsule Take 1 capsule (20 mg total) by mouth daily. 30 capsule 1 11/09/2023 Active Additional Information Patient not taking.Reason: Not effective, Reported on 02/15/2024 acyclovir (ZOVIRAX) 400 MG tablet TAKE 1 TABLET BY MOUTH THREE TIMES A DAY 270 tablet 1 11/28/2023 Active LORazepam (ATIVAN) 0.5 MG tablet Take 1 tablet (0.5 mg total) by mouth every 6 (six) hours as needed. 60 tablet 0 12/10/2023 Active doxycycline (DORYX) 100 MG EC tablet Take 1 tablet (100 mg total) by mouth 2 (two) times a day. 28 tablet 0 12/13/2023 Active Additional Information Patient not taking.Reason: Other (not taking now), Reported on 02/15/2024 venetoclax (VENCLEXTA DOSEPACK) tabletsIndications :Chronic Lymphocytic Leukemia Week 1 - Take 20 mg po once daily. Week 2 - Take 50 mg po once daily Week 3 - Take 100 mg po once daily Week 4 - Take 200 mg po once daily. Week 5 - Take 400 mg po once daily. 1 each 0 01/25/2024 Active allopurinol (ZYLOPRIM) 300 MG tablet TAKE 1 TABLET BY MOUTH EVERY DAY 90 tablet 0 01/31/2024 Active ipratropium (ATROVENT) 0.06 % nasal spray 0 01/31/2024 Active ipratropium (ATROVENT) 0.06 % nasal spray spray or apply 2 sprays inside Nose. 0 01/31/2024 02/24/2025 Active venetoclax (VENCLEXTA) tabletIndications: Chronic Lymphocytic Leukemia Take 4 tablets (400 mg total) by mouth daily. Take with a meal and water once daily. 120 tablet 1 02/19/2024 Active Active Problems Problem Noted Date Diagnosed Date [...] when CLL detected Overview: Psoriasis with arthropathy Social History Tobacco Use Types Packs/Day Years Used Date Smoking Tobacco: Never Smokeless Tobacco: Never Sex and Gender Information Value Date Recorded Sex Assigned at Male 10/18/2022 4:31 PM EDT Gender Identity Male 04/13/2023 12:06 PM EST Sexual Orientation Straight 04/13/2023 12 :06 PM EST Job Start Date Occupation Industry Not on file Not on file Not on file Last Filed Vital Signs Vital Sign Reading Time Taken Comments Blood Pressure 122/69 02/22/2024 3:06 PM EDT Pulse 87 02/22/2024 3:06 PM EDT Temperature 36.6 ??C (97.8 ??F) 02/22/2024 9:00 AM ED T Respiratory Rate 18 02/22/2024 3:06 PM EDT Oxygen Saturation 99% 02/22/2024 9:00 AM EDT Inhaled Oxygen Concentration - - Weight 93.1 kg (205 lb 4 oz) 02/15/2024 8:09 AM EDT Height 172.7 cm (5' 7.99 ) 02/15/2024 8:09 AM ED T Body Mass Index 31.22 02/15/2024 8:09 AM EDT Plan of Treatment Health Maintenance Due Date Last Done Comments Hepatitis B Vaccines (1 of 3 - 3-dose series) 1970 Hepatitis C Screening 1970 Depression Screening 1980 BMI Counseling 1986 Preventative Health Evaluation 1986 Shingrix-Zoster Vaccine (1 of 2) 1987 Colon Cancer Screening (Colonoscopy) 2013 Pneumococcal Vaccine (2 of 2 - PCV) 01/02/2015 01/02/2014 COVID-19 Vaccine (3 - Pfizer risk series) 09/23/2020 08/26/2020, 08/05/2020 Influenza Vaccine (#1) 2023 3, 01/05/2022, 04/21/2020, Additional history exists DTap / Tdap / Td (2 - Td or Tdap) 11/15/2028 11/15/2018 RSV Ped < 20 months Aged Out No longe r eligible based on patient's age to complete this topic Care Teams Help Desk Operator Relationship Specialty Start Date End Date Fernando Pillai MD PCP - General Field Merchandiser 09/16/19
--- OUTSIDE RECORDS SUMMARY | 2024-06-11 12:59 | XMS_ITS | Encounter Summary ---
Author Organization [facility] [place] [address] Care Team Providers Care Environmental Science Technician Name Role Phone Alicia Pillai MD Primary Care Provider [phone] Encounter Details Date Type Department Care Team (Latest Contact Info) Description 02/15/2024 8:51 AM EDT Hospital Encounter TH HISTORIC ENCOUNTERS [facility]AST[facility] CONVERSION ONLY Aparna Dia PA [address] [place] [address] Chronic lymphocytic leukemia of B-cell type not having achieved remission (CMS/FORMERLY [facility]) Social History Tobacco Use Types Packs/Day Years [...] Info) Description 06/20/2024 9:30 AM EST Appointment [facility] [address] [phone] 07/28/2024 3:30 PM EDT Office Visit [facility] Hematology Oncology [address] [place] [phone] Mary Post MD [address] [place] [phone] 09/29/2024 1:00 PM EDT Office Visit Adult Medicine - [place] [address] [place] [phone] Katt Jain PA [address] [place] [address] documented as of this encounter Procedures Procedure Name Priority Date/Time Associated Diagnosis Comments CHEST ROUTINE 2 VIEWS Routine 02/15/2024 9:08 AM EDT Chronic lymphocytic leukemia of B-cell type not having achieved remission (CMS/HCC) documented in this encounter Results * DR CARRINGTON ROUTINE 2 VIEWS (02/15/2024 9:08 AM EDT) Anatomical Region Laterality Modality Radiographic Tabitha ging 02/15/2024 8:57 AM EDT Narrative 02/15/2024 9:08 AM EDT [facility] Diagnostic Imaging Department [address], [place] [phone] Patient: ??RALF COULTER ?/Age/Sex: 1970 - 53 - M Unit#: ??[id number] ? Location/Status: ??SPDIGEN/REG CLI ? Mnemonic/Ordering Site: ??CHESTXR/SPDI Ordering Physician: ??APARNA DIA DR Chest Routine 2 Views - 02/15/24901 Report Status:Signed PA and lateral views of the chest dated 02/15/2024. HISTORY: CLL. ??Shortness of breath and productive cough for 3 months. COMPARISON: 11/14/2023. FINDINGS: Lungs are clear. ??No pleural effusion, pulmonary edema, or pneumothorax. Normal cardiomediastinal contours. ??No bony abnormality. IMPRESSION: Normal radiographic appearance of the chest. Dictating Physician: ??NEERAJ REN MD Electronically Signed by: ??NEERAJ REN MD Dic Date/Time: ??02/15/24906 Sign date/Time: ??02/15/24907 Procedure Note Neeraj Ren MD - 02/23/2024 [facility] Diagnostic Imaging Department [address] [place] [address] Patient: RALF COULTER /Age/Sex: 1970 - 53 - M Unit#: [id number] Location/Status: CJIGEN/REG CLI Mnemonic/Ordering Site: CHESTXR/SPDI Ordering Physician: APARNA DIA Chest Routine 2 Views - 02/15/24901 Report [...] MD Dic Date/Time: 02/15/24906 Sign date/Time: 02/15/24907 Aparna ARCE IMG XR PROCEDURES Final Result documented in this encounter Visit Diagnoses Diagnosis Chronic lymphocytic 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
--- OUTSIDE RECORDS SUMMARY | 2024-06-11 12:59 | XMS_ITS | Encounter Summary ---
Author Organization [facility] [place] [address] Care Team Providers Care Technical Buyer Name Role Phone Alicia Pillai MD Primary Care Provider [phone] Reason for Visit * Reason Comments Follow-up Encounter Details Date Type Department Care Team (Latest Contact Info) Description 05/30/2024 11:30 AM EST Office Visit [facility] [place] [facility] Hematology Oncology [address] [place] [address] Mary Post MD [address] [place] [address] Chronic lymphocytic leukemia (CMS/HCC) (Primary Dx); Psoriasis with arthropathy (CMS/HCC); Anemia in neoplastic disease; Hypogammaglobulinemia (CMS/HCC); 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 Townsend, rheumatology, at patient request Lab Results Component Value Date WBC 6.7 05/30/2024 HGB 14.1 05/30/2024 HCT 41.2 (L) 05/30/2024 MCV 90.0 05/30/2024 PLT 145 05/30/2024 Lab Results Component Value Date NA 139 05/30/2024 K 4.4 05/30/2024 CL 105 05/30/2024 CO2 27 05/30/2024 GLUCOSE 133 (H) 05/30/2024 BUN 17 05/30/2024 CREATININE 0.77 05/30/2024 CALCIUM 9.6 05/30/2024 PROT 6.9 05/30/2024 ALBUMIN 4.0 05/30/2024 BILITOT 0.5 05/30/2024 AST 22 05/30/2024 ALT 44 05/30/2024 URICACID 2.8 (L) 05/30/2024 ALKPHOS 95 05/30/2024 EGFR 106 05/30/2024 Lab Results Component Value Date SEDRATE 10 05/30/2024 Lab Results Component Value Date CRP 0.32 05/30/2024 Lab Results Component Value Date FERRITIN 738 (H) 05/30/2024 Lab Results Component Value Date IRON 80 05/30/2024 TIBC 325 05/30/2024 FERRITIN 738 (H) 05/30/2024 CHIEF COMPLAINT: Chief Complaint Patient presents with Follow-up CLL/SLL Psoriatic arthropathy Transfusion dependent anemia Pancytopenia Hypogammaglobulinemia IDENTIFIER:Ralf Coulter is a 53 y.o. male. HPI: The patient returns for follow up of CLL/SLL For details of initial diagnosis and follow up until FEB 22, 2024- please refer to notes from prior [facility] EMR last note dated 01/16/2024 Most recently second line treatment Brukinsa, for the last 7 months since September 2023 Thereafter transition to venetoclax with Brukinsa overlap, and currently on venetoclax only He also continues on IVIG, tolerating it every 3 weeks During the last 6 months, he has required PRBC transfusion weekly x 3 months, and also intermittentplatelet transfusion. He required Neupogen injections to maintain his ANC. Over the last 6 weeks, transfusion and Neupogen requirement have decreased in frequency. He had a follow-up with Dr. Ayers in [place]. He was advised to continue on venetoclax for now. Patient also notes that his psoriasisskin rash, has recurred. He follows with Dr. Townsend. He was advised to have lab work including CBC-D, CMP which he does q. 2 to 4 weeks, and also CRP, ESR etc. This will be obtained. Since he has had multiple PRBC transfusions, request for ferritin, iron studies, these are ordered today Question regarding resumption of Humira. I advised the patient to wait another month or 2 as his psoriasis related symptoms, arthropathy appears to be stable, and he is able to maintain his function.Skin rash mild itching, does not interfere with sleep. In the next couple months once his counts stabilize and he is off Neupogen, can consider starting on Humira. The risk of recurrence/progression of non-Hodgkin lymphoma is particularly with multiple agent therapy for inflammatory disorders, suchas Humira plus another cytotoxic agent such as azathioprine etc. However patient is currently on intermittent steroids and celecoxib only for the psoriatic arthropathy and psoriasis. Discussion regarding antipruritic medication, patient has topical medication available. If pruritusworsens could consider hydroxyzine as well Due to recurrent episode of infection, recheck IgG level, low at 455, therefore IVIG changed to every 3 weeks Patient has been started on acyclovir, and Bactrim per Dr. Treadwell--at the time patient was on Humira Psoriatic arthritis-controlled well He had a colonoscopy, 3 polyps were removed, all had atypical lymphoid infiltrate, likely related to his CLL/SLL The following is copied, reviewed and edited Cancer Staging No matching staging information was found for the patient. Oncology History Chronic lymphocytic leukemia (CMS/HCC) 01/06/2013 Initial Diagnosis Chronic lymphocytic leukemia (CMS/HCC) 03/14/2024 - Supportive Therapy GROWTH FACTOR FILGRASTIM ( GRANIX) Plan Provider: Mary Post MD Mr Coulter Is a 45-year-old gentleman who presents for followup regarding his chronic lymphocytic leukemia. He has history of psoriasis with arthritis and was started on treatment with Enbrel in 2012. He had some lymphocytosis prior to initiation of enbrel, however during treatment it progressed and he was evaluated in hematology. Flow cytometry studies revealed a monotypic B-cell population consistent with CLL. CLL FISH panel and evaluation at [facility] revealed trisomy 12 and NOtch 1 mutation. I GH V is unmutated. From the review of literature provided by Dr. Treadwell of [facility], apparently Notch 1 mutation is off higher incidence in patients with trisomy 12, and may be impo rtant in CL pathogenesis. He had a series of imaging that showed extensive abdominal adenopathy as well as splenomegaly indicating probably stage II CLL. He has had recent rapid progression of his lymphocytosis without any significant anemia or thrombocytopenia. 02/2017 -- CLL/SLL-- patient continues on ibrutinib with excellent clinical response. However his recent worsening of psoriatic arthropathy may be related to ibrutinib dose. After discussion with of the [facility], decision to cut back on dose to 2 capsules daily, total daily dose of 280 MG. We will continue this for the next 6 weeks and at that time if symptoms have improved significantly, plan to continue at the lower dose 04/2017--ibrutinib dose increased back to 3 capsules daily, as patient experienced the increase in right cervical lymphadenopathy with dose reduction, and also had mild thrombocytopenia. 10/2023- Patient had a follow-up with Dr. Treadwell, on 07/19/2023. Current clinical events were reviewed in detail. In addition to the medications that were recommended previously such as zanubrutinib and a combination of rituximab/venetoclax, new medication-due to insurance restrictions he was started on Brukinsa Since hospitalization, patient has lost some weight. He was on a trip to [place], had to drive back. He reports fatigue, and worried about tachycardia. Lymph node enlargement noticed during the rhinovirus infection have decreased substantially. He continues to experience abdominal distention, bloating. He had imaging studies performed during the hospitalization that is reviewed 11/14/2023-CT chest-no acute findings, lymphadenopathy, mediastinal up to 1.6 cm, axillary up to 3.5cm, consistent with CLL. Pulmonary nodules up to 7 mm 11/14/2023-abdomen/pelvis CT-small nodules along base. Hepatomegaly 23.5 cm, splenomegaly 21.9 cm, multifocal wedge shaped lack of enhancement in spleen 2.4 x 4.3 cm, suspicious for splenic infarction. 11/15/2023-had an echocardiogram performed-normal left atrial size, no cardiac thrombus, left ventricular EF 55 to 60%. No valvular disease, normal RV function, normal PA pressure. He received a PRBC transfusion ROS: GENERAL: No malaise, significant weight loss or fever NECK: No lumps, goiter, pain or significant neck swelling RESPIRATORY: No cough, wheezing or shortness of breath CARDIOVASCULAR: No chest pain, leg swelling or palpitations GI: No abdominal discomfort, blood in stools or black stools MUSCULOSKELETAL: No joint pain or swelling, back pain, or muscle pain. HEMATOLOGY/LYMPHOLOGY No prolonged bleeding, easy bruisability or swollen nodes Other Systems review is non contributory PAST MEDICAL HISTORY: Active Ambulatory Problems Diagnosis Date Noted Chronic lymphocytic leukemia ([facility]) 01/06/2013 Hypogammaglobulinemia ([facility]) 02/03/2024 Anemia in neoplastic disease 11/29/2015 Transfusion-dependent anemia 11/29/2015 Cervical lymphadenopathy 11/14/2023 Herpes zoster 01/22/2012 Low testosterone 03/26/2023 Psoriasis 05/08/2005 Psoriasis with arthropathy ([facility]) 05/08/2005 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 Current Outpatient Medications: albuterol HFA (PROAIR HFA ; PROVENTIL HFA ; VENTOLIN HFA) 90 mcg/actuation inhaler, INHALE 2 PUFFS INTO THE LUNGS EVERY 6 HOURS NEEDED FOR COUGH, WHEEZING OR SHORTNESS OF BREATH., Disp: 25.5 each,Rfl: 0 allopurinoL (ZYLOPRIM) 300 mg tablet, TAKE 1 TABLET BY MOUTH EVERY DAY, Disp: 90 tablet, Rfl: 0 atorvastatin (LIPITOR) 10 mg tablet, TAKE 1 TABLET BY MOUTH EVERY DAY, Disp: 90 tablet, Rfl: 1 calcipotriene-betamethasone 0.005-0.064 % foam, Apply 1 Application topically 1 (one) time each day., Disp: , Rfl: celecoxib (CeleBREX) 200 mg capsule, TAKE 1 CAPSULE EVERY DAY NEEDED FOR PAIN WITH FOOD, Disp: ,Rfl: FreeStyle Inga 3 Plus Sensor device, 1 EACH BY DOES NOT APPLY ROUTE EVERY 14 DAYS., Disp: 6 each, Rfl: 0 ipratropium (ATROVENT) 42 mcg (0.06 %) nasal spray, SPRAY 2 SPRAYS BY NASAL ROUTE 4 TIMES DAILY., Disp: 45 mL, Rfl: 0 LORazepam (ATIVAN) 0.5 mg tablet, Take 1 tablet (0.5 mg total) by mouth every 6 hours as needed., Disp: , Rfl: metFORMIN (GLUCOPHAGE) 1,000 mg tablet, TAKE 1 TABLET BY MOUTH TWICE A DAY, Disp: 180 tablet, Rfl: 1 omeprazole (PriLOSEC) [address] capsule, Take 1 capsule (20 mg total) by mouth 1 (one) time each day., Disp: , Rfl: predniSONE (DELTASONE) 20 mg tablet, Take 1 tablet (20 mg total) by mouth., Disp: , Rfl: sulfamethoxazole-trimethoprim (BACTRIM,SEPTRA) 400-80 mg per tablet, TAKE 1 TABLET BY MOUTH DAILY.,Disp: 30 tablet, Rfl: 5 Venclexta 100 mg tablet, TAKE 4 TABLETS (400 MG) BY MOUTH ONCE DAILY. TAKE WITH A MEAL AND WATER., Disp: 120 tablet, Rfl: 0 Venclexta 100 mg tablet, TAKE 4 TABLETS (400 MG) BY MOUTH ONCE DAILY. TAKE WITH A MEAL AND WATER., Disp: 120 tablet, Rfl: 5 venetoclax (VENCLEXTA) 10 mg-50 mg- 100 mg, Week 1 - Take 20 mg po once daily. Week 2 - Take 50 mg po once daily Week 3 - Take 100 mg po once daily Week 4 - Take 200 mg po once daily. Week 5 - Take 400 mg po once daily., Disp: , Rfl: No current facility-administered medications for this visit. Facility-Administered Medications Ordered in Other Visits: immune globulin (human) (GAMMAGARD) 10 % infusion 30 g, 30 g, intravenous, Once, Subramony Mirian-MD Keven Allergies Allergen Reactions Amoxicillin Rash Other Reaction(s): Rash/Dermatitis Moxifloxacin Nausea And Vomiting Other Reaction(s): OTHER Pt reports dizzyness, lightheadedness, passing out. Pt reports dizzyness, lightheadedness, passing out. PHYSICAL EXAM: Visit Vitals BP 125/70 (BP Location: Left arm, Patient Position: Sitting, BP Cuff Size: Small adult) Pulse 65 Temp 37 ??C (98.6 ??F) (Temporal) Wt 93.9 kg (207 lb) SpO2 98% BMI 31.48 kg/m?? Smoking Status Never BSA 2.07 m?? APPEARANCE: Alert and in no acute distress EYES: PERRL, conjunctiva appears pale, improved and sclera are Normal without icterus ORAL CAVITY: No erythema or exudates NECK: Neck supple, no adenopathy, HEART: RRR with normal S1 and S2, no murmurs, no gallops, no JVD appreciated LUNG: clear to auscultation bilaterally Percussion note normal LYMPH NODES: Lymphadenopathy in the neck area bilaterally improved significantly, left axillary adenopathy approximately 3 cm ABDOMEN: Bowel sounds normoactive, no bruits, soft, non-tender, without organomegaly or palpable masses EXTREMITIES: Extremities warm and well perfused without clubbing, cyanosis, rash or edema NEURO: Oriented X 3, no focal weakness; sensation is normal Normal gait LABS: Review of Lab results , interpreted Lab Results Component Value Date WBC 6.7 05/30/2024 HGB 14.1 05/30/2024 HCT 41.2 (L) 05/30/2024 MCV 90.0 05/30/2024 PLT 145 05/30/2024 Lab Results Component Value Date NA 139 05/16/2024 K 4.1 05/16/2024 CL 108 05/16/2024 CO2 28 05/16/2024 GLUCOSE 246 (H) 05/16/2024 BUN 17 05/16/2024 CREATININE 0.97 05/16/2024 CALCIUM 8.9 05/16/2024 PROT 6.3 05/16/2024 ALBUMIN 3.7 05/16/2024 BILITOT 0.3 05/16/2024 AST 19 05/16/2024 ALT 51 05/16/2024 URICACID 4.0 05/16/2024 ALKPHOS 92 05/16/2024 EGFR 92 05/16/2024 Review of Imaging, interpreted CHEST ROUTINE 2 VIEWS [facility] Diagnostic Imaging Department [address] [place] [id number] Patient: RALF COULTER /Age/Sex: 1970 - 53 - M Unit#: [id number] Location/Status: SPDIGEN/REG CLI Mnemonic/Ordering Site: CHESTXR/SPDI Ordering Physician: SIMI DIA PA Chest Routine 2 Views - 02/15/24 - 0902 Report Status:Signed PA and lateral views of the chest dated 02/15/2024. HISTORY: CLL. Shortness of breath and productive cough for 3 months. COMPARISON: 11/14/2023. FINDINGS: Lungs are clear. No pleural effusion, pulmonary edema, or pneumothorax. Normal cardiomediastinal contours. No bony abnormality. IMPRESSION: Normal radiographic appearance of the chest. Dictating Physician: NARA CORDOVA MD Electronically Signed by: NARA CORDOVA MD Dic Date/Time: 02/15/24906 Sign date/Time: 02/15/24907 Review of External Documentation Notes from [facility], Dr. Treadwell Tests ordered - Orders Placed This Encounter Procedures Ferritin Standing Status: Future Number of Occurrences: 1 Standing Expiration Date: 05/30/2025 Iron and TIBC Standing Status: Future Number of Occurrences: 1 Standing Expiration Date: 05/30/2025 Ferritin Standing Status: Future Standing Expiration Date: 05/30/2025 Iron and TIBC Standing Status: Future Standing Expiration Date: 05/30/2025 Sedimentation rate Standing Status: Future Number of Occurrences: 1 Standing Expiration Date: 05/30/2025 C-reactive protein Standing Status: Future Number of Occurrences: 1 Standing Expiration Date: 05/30/2025 IMPRESSION: 1. Chronic lymphocytic leukemia (CMS/HCC) 2. Psoriasis with arthropathy (CMS/HCC) 3. Anemia in neoplastic disease 4. Hypogammaglobulinemia (CMS/HCC) 5. 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 Cervical lymphadenopathy PLAN: 53 year-old man with CLL/SLL, initial diagnosis November 2012, and started on treatment 3 years laterin September 2015. #1 chronic lymphocytic leukemia-stage II disease, with trisomy 12, Notch 1 mutation, poor prognostic factors, -he was on ibrutinib x 8 years, discontinued in August 2023, due to disease progression -- Thereafter Brukinsa with short-lived response, and on venetoclax since September 2023, with 1 month overlap in February with Brukinsa again. Continues on acyclovir and Bactrim --Attempted rituximab, but had to discontinue after 1 dose of 100 mg, as he had developed significant anxiety, therefore held off, and per Dr. Treadwell recommendation may be a candidate for obinutuzumab in future obtain G6PD level --this was normal, okay to use rasburicase if needed in future -- Significant cytopenic side effects while on venetoclax, appears to be resolving over the last month #2 hypogammaglobulinemia, -continue IVIG every 3 weeks- Premedication-dexamethasone to be included, , orders [facility] Steroids appear to provide him some relief from the psoriatic arthropathy as well #3 Neutropenia-Neupogen has been approved, recommend 480 mcg dose daily x 3 if ANC less than 1 Appears to have resolved in end of April #4 chronic cough, has now improved #5 monitoring lab work ordered monthly CBC, differential, CMP, IGG, LDH Okay to do q. 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 , may need further evaluation in 3 to 5 years. Or sooner if any new symptoms #10 severe anxiety after infusion reaction-started lorazepam with improvement Follow-up in 2 months sooner if new issues arise Pain Control--no issues Health Care Proxy--his Mary Post MD Cc Alicia Pillai MD Cc Robbin Treadwell Cc Dr. Townsend, rheumatology documented in this encounter Plan of Treatment Upcoming Encounters Date Type Department Care Team (Late st Contact Info) Description 06/20/2024 9:30 AM EST Appointment [facility] [address] [place] [phone] 07/28/2024 3:30 PM EDT Office Visit [facility] Hematology Oncology [address] [place] [phone] Mary Post MD [address] [place] [phone] 09/29/2024 1:00 PM EDT Office Visit Adult Medicine - [place] [address] [place] [phone] Katt Jain PA [address] [place] [address] Scheduled Orders Name Type Priority Associated Diagnoses Orde r Schedule Ferritin Lab Routine Anemia in neoplastic disease Expected: 05/30/2024, Expires: 05/30/2025 Iron and TIBC Lab Routine Anemia in neoplastic disease Expected: 05/30/2024, Expires: 05/30/2025 documented as of this encounter Results * C-reactive protein (05/30/2024 12:10 PM EST) C-Reactive Protein 0.32 <=0.50 mg/dL LAB CHEMISTRY METHOD 05/30/2024 1:05 PM EST [facility] Blood Venous blood specimen / Unknown Venipuncture / Unknown 05/30/2024 12:10 PM EST 05/30/2024 12:33 PM EST us Mary Post MD LAB BLOOD ORDERABLE S Final Result Performing Organization Address City/[facility]/ZIP Co de Phone Number [facility] [address] [place] [address], [place] [phone] * Sedimentation rate (05/30/2024 12:10 PM EST) Pathologist [facility] Sed Rate 10 0 - 20 mm/hr LAB HEMETOLOGY METHOD 05/30/2024 1:07 PM EST [facility] Blood Venous blood specimen / Unknown Venipuncture / Unknown 05/30/2024 12:10 PM EST 05/30/2024 12:33 PM EST us Mary Post MD LAB BLOOD ORDERABLE S Final Result Performing Organization Address City/[facility]/ZIP Co de Phone Number [facility] [address] [place] [address], [place] [phone] * Iron and TIBC (05/30/2024 12:10 PM EST) Iron 80 50 - 160 mcg/dL LAB CHEMISTRY METHOD 05/30/2024 1:05 PM EST [facility] TIBC 325 250 - 450 mcg/dL LAB CHEMISTRY METHOD 05/30/2024 1:05 PM [facility] Iron Saturation 25 20 - 50 % LAB CHEMISTRY METHOD 05/30/2024 1:05 PM EST [facility] Blood Venous blood specimen / Unknown Venipuncture / Unknown 05/30/2024 12:10 PM EST 05/30/2024 12:33 PM EST Mary Post MD LAB BLOOD ORDERABLE S Final Result Performing Organization Address [facility]/ZIP Co de Phone Number [facility] [address] [place] [address], [place] [phone] * (ABNORMAL) Ferritin (05/30/2024 12:10 PM EST) Ferritin 738(H) 26 - 388 ng/mL LAB CHEMISTRY METHOD 05/30/2024 1:05 PM EST [facility] Blood Venous blood specimen / Unknown Venipuncture / Unknown 05/30/2024 12:10 PM EST 05/30/2024 12:33 PM EST Mary Post MD LAB BLOOD ORDERABLE S Final Result Performing Organization Address [facility] Co de Phone Number [facility] [address] [place] [address], [place] [phone] documented in this encounter Visit Diagnoses Diagnosis Chronic lymphocytic leukemia (CMS/HCC)- Primary Chronic lymphoid leukemia, without mention of having achieved remission 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
--- OUTSIDE RECORDS SUMMARY | 2024-06-11 12:59 | XMS_ITS | Encounter Summary ---
Author Organization [facility] [place] [address] Care Team Providers Care Pet Sitting Name Role Phone Alicia Pillai MD Primary Care Provider [phone] Encounter Details Date Type Department Care Team [...] Description 06/20/2024 9:30 AM EST Appointment [facility] [address] [place] [phone] 07/28/2024 3:30 PM EDT Office Visit [facility] Hematology Oncology [address] [place] [phone] Mirian-Mary Baca MD [address] [place] [phone] 09/29/2024 1:00 PM EDT Office Visit Adult Medicine - [place] [address] [place] [phone] Katt Jain PA [address] [place] [address] documented as of this encounter Visit Diagnoses Not on filedocumented in this encounter Care Teams Pet Sitting Relationship Specialty Start Date End Date Alicia Pillai MD [address] [place] [phone] PCP - General Internal Medicine 02/04/15 documented as of this encounter
--- OUTSIDE RECORDS SUMMARY | 2024-06-11 13:00 | XMS_ITS | Encounter Summary ---
Author Organization [facility] [place] [address] Care Team Providers Care Locksmith Apprentice Name Role Phone Alicia Pillai MD Primary Care Provider [phone] Encounter Details Date Type Department Care Team (Latest Contact Info) Description 05/16/2024 9:30 AM EST - 05/16/2024 11:59 PM EST Hospital Encounter [facility] [address] [phone] Mary Post MD [address] [place] [address] Chronic lymphocytic leukemia (CMS/HCC) (Primary Dx); Anemia in neoplastic disease; Cervical lymphadenopathy; Hypogammaglobulinem ia (CMS/HCC); Transfusion-depende nt anemia Discharge Disposition: Home or Self Care Social History Tobacco Use Types Packs/Day Years [...] Sign Reading Time Taken Comments Blood Pressure 124/74 05/16/2024 9:45 AM EST Pulse 72 05/16/2024 9:45 AM EST Temperature 36.2 ??C (97.2 ??F) 05/16/2024 9:45 AM ES T Respiratory Rate 18 05/16/2024 9:45 AM EST Oxygen Saturation 99% 05/16/2024 9:45 AM EST Inhaled Oxygen Concentration - - Weight - - Height - - Body Mass Index - - documented in this encounter Medications at Time of Discharge albuterol HFA (PROAIR HFA ; PROVENTIL HFA ; VENTOLIN HFA) 90 mcg/actuation inhaler INHALE 2 PUFFS INTO THE LUNGS EVERY 6 HOURS NEEDED FOR COUGH, WHEEZING OR SHORTNESS OF BREATH. 25.5 each 03/31/2024 allopurinoL (ZYLOPRIM) 300 mg tablet TAKE 1 TABLET BY MOUTH EVERY DAY 90 tablet 04/30/2024 atorvastatin (LIPITOR) 10 mg tablet TAKE 1 TABLET BY MOUTH EVERY DAY 90 tablet 1 03/03/2024 calcipotriene-be tamethasone 0.005-0.064 % foam Apply 1 Application topically 1 (one) time each day. 02/19/2018 celecoxib (CeleBREX) 200 mg capsule TAKE 1 CAPSULE EVERY DAY NEEDED FOR PAIN WITH FOOD 02/19/2019 ipratropium (ATROVENT) 42 mcg (0.06 %) nasal spray SPRAY 2 SPRAYS BY NASAL ROUTE 4 TIMES DAILY. 45 mL 04/08/2024 LORazepam (ATIVAN) 0.5 mg tablet Take 1 tablet (0.5 mg total) by mouth every 6 hours as needed. 12/10/2023 metFORMIN (GLUCOPHAGE) 1,000 mg tablet TAKE 1 TABLET BY MOUTH TWICE A DAY 180 tablet 1 03/03/2024 omeprazole (PriLOSEC) [address] capsule Take 1 capsule (20 mg total) by mouth 1 (one) time each day. 11/09/2023 predniSONE (DELTASONE) 20 mg tablet Take 1 tablet (20 mg total) by mouth. 10/03/2023 sulfamethoxazole -trimethoprim (BACTRIM,SEPTRA) 400-80 mg per tablet TAKE 1 TABLET BY MOUTH DAILY. 30 tablet 5 04/30/2024 Venclexta 100 mg tablet TAKE 4 TABLETS (400 MG) BY MOUTH ONCE DAILY. TAKE WITH A MEAL AND WATER. 120 tablet 04/15/2024 Venclexta 100 mg tablet TAKE 4 TABLETS (400 MG) BY MOUTH ONCE DAILY. TAKE WITH A MEAL AND WATER. 120 tablet 5 04/21/2024 venetoclax (VENCLEXTA) 10 mg-50 mg- 100 mg Week 1 - Take 20 mg po once daily. Week 2 - Take 50 mg po once daily Week 3 - Take 100 mg po once daily Week 4 - Take 200 mg po once daily. Week 5 - Take 400 mg po once daily. 01/25/2024 documented as of this encounter Discharge Disposition Disposition Code Departure Means Destination Home or Self Care documented in this encounter Progress Notes * Cheri Escudero MA - 05/16/2024 9:30 AM ESTEncounter addended by: Cheri Escudero MA on: 05/19/2024 2:42 PM Actions taken: Charge Capture section accepted * Jenni Clifton RN - 05/16/2024 9:30 AM EST Pt arrives today for stat labs and possible transfusion or granix injection. Stat labs drawn LEFT ac - pt tolerated well. 1105 stat labs resulted. Reported to Dr Thomas. No need for PRBC infusion. Granix ok'd by Dr Thomas. Medication, allergies, labs, and assessment reviewed. Medication released to pharmacy. 1200 Granix inj given LEFT arm SQ. Pt tolerated well. Appointment made for next stat labs. Stable at discharge. documented in this encounter Plan of Treatment Upcoming Encounters Date Type Department Care Team (Late st Contact Info) Description 06/20/2024 9:30 AM EST Appointment [facility] [address] [place] [phone] 07/28/2024 3:30 PM EDT Office Visit [facility] [address] [place] [phone] Mary Post MD [address] [place] [address] 09/29/2024 1:00 PM EDT Office Visit Adult Medicine - [place] [address] [place] [phone] Katt Jain PA [address] [place] [address] Scheduled Orders Name Type Priority Associated Diagnoses Orde r Schedule CBC and differential Lab STAT Chronic lymphocytic leukemia (CMS/HCC) Once a week for 50 Occurrences starting 05/16/2024 until 05/16/2025 Type and screen Lab STAT Chronic lymphocytic leukemia (CMS/HCC) Once a week for 50 Occurrences starting 05/16/2024 until 05/16/2025 documented as of this encounter Procedures Procedure Name Priority Date/Time Associated Diagnosis Comments CBC WITH AUTO DIFFERENTIAL STAT 05/16/2024 10:07 [...] 10:07 AM EST Chronic lymphocytic leukemia (CMS/HCC) documented in this encounter Results * (ABNORMAL) CBC auto differential (05/16/2024 10:07 AM EST) [facility] Signature WBC 2.7(L) 4.8 - 10.8 K/[facility] LAB HEMETOLOGY METHOD 05/16/2024 10:27 AM EST [facility] RBC 4.30(L) 4.50 - 5.50 M/mcL LAB HEMETOLOGY METHOD 05/16/2024 10:27 AM [facility] Hemoglobin 13.4(L) 13.5 - 17.5 g/dL LAB HEMETOLOGY METHOD 05/16/2024 10:27 AM [facility] Hematocrit 40.2(L) 42.0 - 54.0 % LAB HEMETOLOGY METHOD 05/16/2024 10:27 AM [facility] MCV 93.7 79.0 - 98.0 FL LAB HEMETOLOGY METHOD 05/16/2024 10:27 AM [facility] MCH 31.2 27.0 - 32.0 pcg LAB HEMETOLOGY METHOD 05/16/2024 10:27 AM [facility] MCHC 33.3 32.0 - 37.0 g/dL LAB HEMETOLOGY METHOD 05/16/2024 10:27 AM [facility] RDW 13.4 11.0 - 15.0 % LAB HEMETOLOGY METHOD 05/16/2024 10:27 AM [facility] Platelets 117(L) 130 - 400 K/mcL LAB HEMETOLOGY METHOD 05/16/2024 10:27 AM [facility] MPV 10.8 7.0 - 11.0 FL LAB HEMETOLOGY METHOD 05/16/2024 10:27 AM [facility] NRBC 0.0 <1.0 % LAB HEMETOLOGY METHOD 05/16/2024 10:27 AM [facility] NRBC Absolute 0.00 <0.10 K/mcL LAB HEMETOLOGY METHOD 05/16/2024 10:27 AM [facility] Neutrophils Relative 34.4 % LAB HEMETOLOGY METHOD 05/16/2024 10:27 AM [facility] Lymphocytes Relative 52.2 % LAB HEMETOLOGY METHOD 05/16/2024 10:27 AM [facility] Monocytes Relative 13.0 % LAB HEMETOLOGY METHOD 05/16/2024 10:27 AM EST [facility] Eosinophils Relative 0.0 % LAB HEMETOLOGY METHOD 05/16/2024 10:27 AM [facility] Basophils Relative 0.4 % LAB HEMETOLOGY METHOD 05/16/2024 10:27 AM EST [facility] Immature Granulocytes Relative 0.0 % LAB HEMETOLOGY METHOD 05/16/2024 10:27 AM [facility] Neutrophils Absolute 0.93(L) 1.50 - 7.00 K/mcL LAB HEMETOLOGY METHOD 05/16/2024 10:27 AM [facility] Lymphocytes Absolute 1.41 1.00 - 5.00 K/mcL LAB HEMETOLOGY METHOD 05/16/2024 10:27 AM [facility] Monocytes Absolute 0.35 0.20 - 1.00 K/mcL LAB HEMETOLOGY METHOD 05/16/2024 10:27 AM EST [facility] Eosinophils Absolute 0.00 0.00 - 0.50 K/mcL LAB HEMETOLOGY METHOD 05/16/2024 10:27 AM EST [facility] Basophils Absolute 0.01 0.00 - 0.20 K/mcL LAB HEMETOLOGY METHOD 05/16/2024 10:27 AM [facility] Immature Granulocytes Absolute 0.00 0.00 - 0.03 K/mcL LAB HEMETOLOGY METHOD 05/16/2024 10:27 AM [facility] Blood Venous blood specimen / Unknown Venipuncture / Unknown 05/16/2024 10:07 AM EST 05/16/2024 10:16 AM EST us Subramalfonso Post MD LAB BLOOD ORDERABLE S Final Result [facility] [address] [place] [address], [place] [phone] * Type and screen (05/16/2024 10:07 AM EST) Pathologist [facility] A 05/16/2024 11:07 AM EST [facility] Rh Type Positive 05/16/2024 11:07 AM EST [facility] Antibody Screen Negative 05/16/2024 11:07 AM EST [facility] Blood Venous blood specimen / Unknown Venipuncture / Unknown 05/16/2024 10:07 AM EST 05/16/2024 10:16 AM EST Mary Post MD LAB BLOOD BANK TEST ORDERABLES Final Result Performing Organization Address [facility]/ZIP Co de Phone Number [facility] [address] [place] [address], * (ABNORMAL) Lactate dehydrogenase (05/16/2024 10:07 AM EST) [facility] LDH 117(L) 120 - 246 unit/L LAB CHEMISTRY METHOD 05/16/2024 10:51 AM EST [facility] Blood Venous blood specimen / Unknown Venipuncture / Unknown 05/16/2024 10:07 AM EST 05/16/2024 10:16 AM EST Mary Post MD LAB BLOOD ORDERABLE S Final Result [facility] [address] [place] [address], [place] [phone] * Uric acid (05/16/2024 10:07 AM EST) [facility] Uric Acid 4.0 3.7 - 9.2 mg/dL LAB CHEMISTRY METHOD 05/16/2024 10:51 AM EST [facility] Blood Venous blood specimen / Unknown Venipuncture / Unknown 05/16/2024 10:07 AM EST 05/16/2024 10:16 AM EST Mary Post MD LAB BLOOD ORDERABLE S Final Result [facility] [address] [place] [address], * (ABNORMAL) Comprehensive metabolic panel (05/16/2024 10:07 AM EST) Sodium 139 133 - 145 mmol/L LAB CHEMISTRY METHOD 05/16/2024 10:52 AM [facility] Potassium 4.1 3.5 - 5.5 mmol/L LAB CHEMISTRY METHOD 05/16/2024 10:52 AM [facility] Chloride 108 96 - 110 mmol/L LAB CHEMISTRY METHOD 05/16/2024 10:52 AM [facility] CO2 28 21 - 32 mmol/L LAB CHEMISTRY METHOD 05/16/2024 10:52 AM [facility] Anion Gap 3 3 - 11 LAB CHEMISTRY METHOD 05/16/2024 10:52 AM [facility] Glucose 246(H) 70 - 100 mg/dL LAB CHEMISTRY METHOD 05/16/2024 10:52 AM [facility] BUN 17 5 - 25 mg/dL LAB CHEMISTRY METHOD 05/16/2024 10:52 AM [facility] Creatinine 0.97 0.70 - 1.30 mg/dL LAB CHEMISTRY METHOD 05/16/2024 10:52 AM [facility] eGFR 92 >=60 mL/min/1. 73m2 LAB CHEMISTRY METHOD 05/16/2024 10:52 AM [facility] Comment:Calculation based on the??Chronic Kidney Disease Epidemiology Collaboration (CKD-EPI) equation refit??without adjustment for race. BUN/Creatinine Ratio 17.5 LAB CHEMISTRY METHOD 05/16/2024 10:52 AM [facility] Calcium 8.9 8.5 - 10.5 mg/dL LAB CHEMISTRY METHOD 05/16/2024 10:52 AM [facility] AST (SGOT) 19 10 - 42 unit/L LAB CHEMISTRY METHOD 05/16/2024 10:52 AM [facility] ALT (SGPT) 51 10 - 60 unit/L LAB CHEMISTRY METHOD 05/16/2024 10:52 AM [facility] Alkaline Phosphatase 92 42 - 121 unit/L LAB CHEMISTRY METHOD 05/16/2024 10:52 AM [facility] Total Protein 6.3 6.0 - 8.0 g/dL LAB CHEMISTRY METHOD 05/16/2024 10:52 AM [facility] Albumin 3.7 3.2 - 5.0 g/dL LAB CHEMISTRY METHOD 05/16/2024 10:52 AM [facility] Total Bilirubin 0.3 0.0 - 1.4 mg/dL LAB CHEMISTRY METHOD 05/16/2024 10:52 AM [facility] Blood Venous blood specimen / Unknown Venipuncture / Unknown 05/16/2024 10:07 AM EST 05/16/2024 10:16 AM EST Mary Post MD LAB BLOOD ORDERABLE S Final Result [facility] [address] [place] [address], documented in this encounter Visit Diagnoses Diagnosis Chronic lymphocytic leukemia (CMS/HCC)- Primary Chronic lymphoid leukemia, without mention of having achieved remission Anemia in neoplastic disease Cervical lymphadenopathy Enlargement of lymph nodes Hypogammaglobulinemia (CMS/HCC) Unspecified hypogammaglobulinemia Transfusion-dependent anemia documented in this encounter Administered Medications Inactive Administered Medications - up to 3 most recent administrations Medication Order MAR Action Action Date Dose Rate Site tbo-filgrastim (GRANIX) syringe 480 mcg 480 mcg, subcutaneous, Once, On Sun05/16/24 at 1130, For 1 doseIndications:Chronic lymphocytic leukemia (CMS/HCC),Anemia in neoplastic disease,Cervical lymphadenopathy,Hypogamm aglobulinemia (CMS/HCC),Transfusion-de pendent anemia Given 05/16/2024 11:57 AM EST 480 mcg Left Upper Arm (Back) documented in this encounter Orders Medications Ordered That Michael ht Not Have Been Administered Count Last Ordered Date First Ordered Date tbo-filgrastim (GRANIX) syringe 480 mcg 1 0 05/16/2024 documented in this encounter Care Teams Locksmith Apprentice Relationship Specialty Start Date End Date Alicia Pillai MD [address] [place] [id number] PCP - General Internal Medicine 02/04/15 documented as of this encounter
--- OUTSIDE RECORDS SUMMARY | 2024-06-11 13:00 | XMS_ITS | Encounter Summary ---
Author Organization [facility] [place] [address] Care Team Providers Care Remote Control Assembler Name Role Phone Alicia Pillai MD Primary Care Provider [phone] Reason for Visit * Reason Comments Diabetes Encounter Details Date Type Department Care Team ([facility] st Contact Info) Description 06/10/2024 11:00 AM EST Office Visit Adult [facility] [address] [place] [address] Katt Jain PA [address] [place] [address] Type 2 diabetes mellitus without complication, without long-term current use of insulin ([facility]) (Primary Dx) Social History Tobacco Use Types Packs/Day Years [...] 06/10/2024 10:[address] Respiratory Rate - - Oxygen Saturation - - Inhaled Oxygen Concentration - - Weight 95.7 kg (211 lb) 06/10/2024 10:52 AM EST Height 174 cm (5' 8.5 ) 06/10/2024 10:52 AM EST Body Mass Index 31.62 06/10/2024 10:52 AM EST documented in this encounter Ordered Prescriptions Prescription Sig Dispense Quantity Refills Last Filled Start Date End Date Trulicity 3 mg/0.5 mL pen injector injectionIndicatio ns:Type 2 diabetes mellitus without complication, without long-term current use of insulin (CMS/[facility]) Inject 0.5 mL (3 mg total) under the skin every 7 (seven) days. 6 mL 06/10/2024 09/08/2024 documented in this encounter Progress Notes * YAZMIN Miller - 06/10/2024 11:00 AM EST CHIEF COMPLAINT: Diabetes IDENTIFIER:Gregory Coulter is a 53 y.o. old male. HPI: 53 year old male with past medical history of CLL, type II diabetes mellitus, and psoriasis presenting for diabetic follow-up. He sees Dr. Baca routinely for CLL management. He also mentions he has an appointment with ENT this coming Sunday for chronic sinusitis. He is currently on metformin 1000 mg tablet twice a day and Trulicity 3 mg per 0.5 mL once weekly. He also has a [employer] inga CGM, states his sugars have been spiking after meals, he seen his numbers go to the 260s but then they come back down pretty quickly. He does get cortisone injections for ongoing care and states his numberswill spike but then come back down by the other day. He denies symptoms of polyuria, polydipsia, and polyphagia. He does inform he received a letter from insurance stating that his Trulicity may not be covered, requesting letter be sent to insurance. 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/29/2015 Chronic lymphocytic leukemia ([facility]) 01/06/2013 Herpes zoster 01/22/2012 Psoriasis 05/08/2005 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 MEDICATIONS: Medications Discontinued During This Encounter Medication Reason Trulicity 3 mg/0.5 mL pen injector injection Reorder ACTIVE MEDICATIONS: Outpatient Medications Marked as Taking for the 06/10/24 encounter (Office Visit) with YAZMIN Miller Medication Sig Dispense Refill albuterol HFA (PROAIR HFA ; PROVENTIL HFA ; VENTOLIN HFA) 90 mcg/actuation inhaler INHALE 2 PUFFS INTO THE LUNGS EVERY 6 HOURS NEEDED FOR COUGH, WHEEZING OR SHORTNESS OF BREATH. 25.5 each 0 allopurinoL (ZYLOPRIM) 300 mg tablet TAKE 1 TABLET BY MOUTH EVERY DAY 90 tablet 0 atorvastatin (LIPITOR) 10 mg tablet TAKE 1 TABLET BY MOUTH EVERY DAY 90 tablet 1 calcipotriene-betamethasone 0.005-0.064 % foam Apply 1 Application topically 1 (one) time each day. celecoxib (CeleBREX) 200 mg capsule TAKE 1 CAPSULE EVERY DAY NEEDED FOR PAIN WITH FOOD FreeStyle Inga 3 Plus Sensor device 1 EACH BY DOES NOT APPLY ROUTE EVERY 14 DAYS. 6 each 0 ipratropium (ATROVENT) 42 mcg (0.06 %) nasal spray SPRAY 2 SPRAYS BY NASAL ROUTE 4 TIMES DAILY. 45 mL 0 LORazepam (ATIVAN) 0.5 mg tablet Take 1 tablet (0.5 mg total) by mouth every 6 hours as needed. metFORMIN (GLUCOPHAGE) 1,000 mg tablet TAKE 1 TABLET BY MOUTH TWICE A DAY 180 tablet 1 omeprazole (PriLOSEC) [address] capsule Take 1 capsule (20 mg total) by mouth 1 (one) time each day. predniSONE (DELTASONE) 20 mg tablet Take 1 tablet (20 mg total) by mouth. sulfamethoxazole-trimethoprim (BACTRIM,SEPTRA) 400-80 mg per tablet TAKE 1 TABLET BY MOUTH DAILY. 30 tablet 5 Trulicity 3 mg/0.5 mL pen injector injection Inject 0.5 mL (3 mg total) under the skin every 7 (seven) days. 6 mL 0 Venclexta 100 mg tablet TAKE 4 TABLETS (400 MG) BY MOUTH ONCE DAILY. TAKE WITH A MEAL AND WATER. 120 tablet 0 Venclexta 100 mg tablet TAKE 4 TABLETS (400 MG) BY MOUTH ONCE DAILY. TAKE WITH A MEAL AND WATER. 120 tablet 5 venetoclax (VENCLEXTA) 10 mg-50 mg- 100 mg Week 1 - Take 20 mg po once daily. Week 2 - Take 50 mg po once daily Week 3 - Take 100 mg po once daily Week 4 - Take 200 mg po once daily. Week 5 - Take 400 mg po once daily. [DISCONTINUED] Trulicity 3 mg/0.5 mL pen injector injection INJECT 1 DEVICE INTO THE SKIN EVERY 7 DAYS. ALLERGIES: Allergies Allergen Reactions Amoxicillin Rash Other Reaction(s): Rash/Dermatitis Moxifloxacin Nausea And Vomiting Other Reaction(s): OTHER Pt reports dizzyness, lightheadedness, passing out. Pt reports dizzyness, lightheadedness, passing out. PHYSICAL EXAM: Blood pressure 110/64, pulse 68, temperature 36.6 ??C (97.8 ??F), temperature source Temporal, height 1.74 m (68.5 ), weight 95.7 kg (211 lb). Wt Readings from Last 5 Encounters: 06/10/24 95.7 kg (211 lb) 05/30/24 93.9 kg (207 lb) 05/02/24 91.7 kg (202 lb 3.2 oz) 04/18/24 94 kg (207 lb 3.7 oz) 04/04/24 93.9 kg (207 lb) Physical Exam: Gen: well developed, well nourished, no distress Head: normal cephalic Eyes: eyes clear, ocular motors intact, no erythema or discharge Neck: full range of motion, no significant lymphadenopathy or masses Lungs: clear to auscultation, good aeration Heart: normal rate and rhythm, normal S1S2, no significant murmur Skin: psoriatic rash noted on bilateral arms, no other skin findings. IMPRESSION: ICD-10-CM ICD-9-CM 1. Type 2 diabetes mellitus without complication, without long-term current use of insulin ([facility]) E11.9 250.00 Trulicity 3 mg/0.5 mL pen injector injection Microalbumin creatinine urine ratio Hemoglobin A1c Lipid panel with LDL and HDL ratio Lipid panel with LDL and HDL ratio PLAN: Diabetes Mellitus Routine labs ordered to assess A1c and signs of proteinuria. Advised to continue on current diabetic medication regimen. Will call patient with lab results and make changes to medications if needed. Next appointment in 3 months for diabetic follow-up. Refill for Trulicity sent to pharmacy, medication alert received regarding prior authorization needed. Will forward to prior authorization team. For this encounter, I personally performed, face to face and [id number] services that include: -Review and update of allergies, PMH, problem list and medications.changes was reconciled with the patient/family/parent/guardian. - Medical appropriate examination - Care planning through shared decision making with counseling for plan of care, risk/benefit of care plan and follow-up recommendations - Documentation of clinical information in electronic health record. Orders Placed This Encounter Procedures Microalbumin creatinine urine ratio Hemoglobin A1c Lipid panel with LDL and HDL ratio New Medications Ordered This Visit Medications Trulicity 3 mg/0.5 mL pen injector injection Sig: Inject 0.5 mL (3 mg total) under the skin every 7 (seven) days. Dispense: 6 mL Refill: 0 Treatment goals, plans and potential barriers to meeting goals was discussed and above noted care plan agreed upon by the patient/parent/guardian. Notes accessible to the patient on the [employer] online portal if enabled. documented in this encounter Plan of Treatment Upcoming Encounters Date Type Department Care Team (Late st Contact Info) Description 06/20/2024 9:30 AM EST Appointment [facility] [address] [phone] 07/28/2024 3:30 PM EDT Office Visit [facility] Hematology Oncology [address] [place] [phone] Mary Post MD [address] [place] [phone] 09/29/2024 1:00 PM EDT Office Visit Adult Medicine - [place] [address] [place] [phone] Katt Jain PA [address] [place], [place] Scheduled Orders Name Type Priority Associated Diagnoses Orde r Schedule Microalbumin creatinine urine ratio Lab Routine Type 2 diabetes mellitus without complication, without long-term current use of insulin ([facility]) 1 Occurrences starting 06/10/2024 until 06/10/2025 Hemoglobin A1c Lab Routine Type 2 diabetes mellitus without complication, without long-term current use of insulin ([facility]) 1 Occurrences starting 06/10/2024 until 06/10/2025 Lipid panel with LDL and HDL ratio Lab Routine Type 2 diabetes mellitus without complication, without long-term current use of insulin ([facility]) 1 Occurrences starting 06/10/2024 until 06/10/2025 documented as of this encounter Visit Diagnoses Diagnosis Type 2 diabetes mellitus without complication, without long-term current use of insulin ([facility])- Primary documented in this encounter Discontinued Medications Medication Sig Discontinue Reason Start Date End Da te Trulicity 3 mg/0.5 mL pen injector injection INJECT 1 DEVICE INTO THE SKIN EVERY 7 DAYS. Reorder 06/10/2024 documented as of this encounter Historical Medications * This list may reflect changes made after this encounter. Trulicity 3 mg/0.5 mL pen injector injection INJECT 1 DEVICE INTO THE SKIN EVERY 7 DAYS. 06/10/2024 added in this encounter Care Teams Remote Control Assembler Relationship Specialty Start Date End Date Alicia Pillai MD [address] [place], [place] PCP - General Internal Medicine 02/04/15 documented as of this encounter
--- OUTSIDE RECORDS SUMMARY | 2024-06-11 13:00 | XMS_ITS | Encounter Summary ---
Author Organization [facility] [place] [address] Care Team Providers Care Hotel Reservation Agent Name Role Phone Alicia Pillai MD Primary Care Provider [phone] Reason for Visit * Reason Comments Other (Add RFV) IVIG and STAT labs * Episode Based Medications (Routine) - Authorized Specialty Diagnoses / Procedures Referred By Isacc t Referred To Contact Diagnoses Hypogammaglobulinemia (CMS/HCC) Chronic lymphocytic leukemia ([facility]/HCC) Mary Post MD [address] [place] [address] Phone: tel: fax: [facility] [address] [place] [phone] Phone: tel: fax: Referral ID Status Reason Start Date Expiration Date V isits Requested Visits Authorized [id number] Authorized 02/03/2024 02/02/2025 1 30 Encounter Details Date Type Department Care Team (Latest Contact Info) Description 05/30/2024 12:00 PM EST - 05/30/2024 11:59 PM EST Hospital Encounter [facility] [address] [place] [phone] Mary Post MD [address] [place] [address] Chronic lymphocytic leukemia ([facility]) (Primary Dx); Hypogammaglobulinem ia ([facility]); Anemia in neoplastic disease; Psoriasis with arthropathy ([facility]) Discharge Disposition: Home or Self Care Social [...] Time Taken Comments Blood Pressure 125/70 05/30/2024 12:20 PM EST Pulse 65 05/30/2024 12:20 PM EST Temperature 37 ??C (98.6 ??F) 05/30/2024 12:20 PM EST Respiratory Rate 18 05/30/2024 12:20 PM EST [...] DAY NEEDED FOR PAIN WITH FOOD 02/19/2019 [employer] In[employer] 3 Plus Sensor device 1 EACH BY DOES NOT APPLY ROUTE EVERY 14 DAYS. 6 each 05/21/2024 ipratropium (ATROVENT) 42 mcg (0.06 %) nasal [...] Progress Notes * Cheri Escudero MA - 05/30/2024 12:00 PM TERIncounter addended by: Cheri Escudero MA on: 06/04/2024 10:03 AM Actions taken: Charge Capture section accepted * Nannette Frost RN - 05/30/2024 12:00 PM EST 1230: PT arrives this afternoon for STAT labs and IVIG infusion. PT reports dry itchy psoriasis generalized to entire body, PT sts he has noticed since his CLL is under more control he has more boutsof psoriasis. PT sts he also has psoriatic arthritis and had lumbar cortisone shot earlier this week. PT denies concerns to GI or systems, reports his chronic cough has improved lately. Otherwise stable assessment. PIV inserted, +BR noted, Labs obtained and sent STAT, flushed per protocol and fluids initated at [facility]. PT denies concerns, given coffee water and premedications, call blanco in reach. 1320: IVIG infusion initiated over multistep rate starting at 0.5mL/kg/hr (47mL/hr) , increasing every 30 minutes to 1ml/kg/hr (93.9mL/hr), 2mL/kg/hr (188mL/hr), & for a max of 3mL/kg/hr (282mL/hr) . PT denies concerns, call blanco in reach. 1400: STAT labs are as followed: WBC 6.7 , Hgb 14.1, Plt 145, ANC 4.18, uric acid 2.8, ferritin 738Reported to Dr. Baca who sts no new orders att and recheck labs with next IVIG infusion. PT made aware and verbalized understanding. IVIG infusion continues, PT tolerating well, denies concerns, callbell in reach. 1500: PT continues to tolerate infusion well without concerns, given another coffee, call blanco in reach. 1533: IVIG infusion completed without concerns. PIV flushed and removed, tip in tact, dressing applied. PT provided with future apt reminders via calendar, verbalized understanding, left unit amb, stable at D/C. documented in this encounter Plan of Treatment Upcoming Encounters Date Type Department Care Team (Late st Contact Info) Description 06/20/2024 9:30 AM EST Appointment [facility] [address] [facility] [address] [place] [address] 07/28/2024 3:30 PM EDT Office Visit [facility] [address] [place] [phone] Mirian-Mary Baca MD [address] [place] [address] 09/29/2024 1:00 PM EDT Office Visit Adult Medicine - [place] [address] [place] [phone] Katt Jain PA [address] [place] [address] documented as of this encounter Procedures Procedure Name Priority Date/Time Associated Diagnosis Comments CBC WITH AUTO DIFFERENTIAL STAT 05/30/2024 12:10 PM EST Chronic lymphocytic leukemia (CMS/HCC) IRON AND TIBC Routine 05/30/2024 12:10 PM EST Chronic lymphocytic leukemia (CMS/HCC) Anemia in neoplastic disease SEDIMENTATION RATE Routine 05/30/2024 12 :10 PM EST Psoriasis with arthropathy (CMS/HCC) CBC AND DIFFERENTIAL STAT 05/30/2024 12:10 PM EST Chronic lymphocytic leukemia (CMS/HCC) C-REACTIVE PROTEIN Routine 05/30/2024 12 :10 PM EST Psoriasis with arthropathy (CMS/HCC) URIC ACID STAT 05/30/2024 12:10 PM EST Chronic lymphocytic leukemia (CMS/HCC) LACTATE DEHYDROGENASE STAT 05/30/2024 12:10 PM EST Chronic lymphocytic leukemia (CMS/HCC) FERRITIN Routine 05/30/2024 12:10 PM EST Chronic lymphocytic leukemia (CMS/HCC) Anemia in neoplastic disease COMPREHENSIVE METABOLIC PANEL STAT 05/30/2024 12:10 PM EST Chronic lymphocytic leukemia (CMS/HCC) documented in this encounter Results * (ABNORMAL) CBC auto differential (05/30/2024 12:10 PM EST) [facility] WBC 6.7 4.8 - 10.8 K/mcL LAB HEMETOLOGY METHOD 05/30/2024 12:43 PM EST [facility] RBC 4.60 4.50 - 5.50 M/mcL LAB HEMETOLOGY METHOD 05/30/2024 12:43 PM [facility] Hemoglobin 14.1 13.5 - 17.5 g/dL LAB HEMETOLOGY METHOD 05/30/2024 12:43 PM [facility] Hematocrit 41.2(L) 42.0 - 54.0 % LAB HEMETOLOGY METHOD 05/30/2024 12:43 PM [facility] MCV 90.0 79.0 - 98.0 FL LAB HEMETOLOGY METHOD 05/30/2024 12:43 PM [facility] MCH 30.8 27.0 - 32.0 pcg LAB HEMETOLOGY METHOD 05/30/2024 12:43 PM [facility] MCHC 34.2 32.0 - 37.0 g/dL LAB HEMETOLOGY METHOD 05/30/2024 12:43 PM [facility] RDW 13.3 11.0 - 15.0 % LAB HEMETOLOGY METHOD 05/30/2024 12:43 PM [facility] Platelets 145 130 - 400 K/mcL LAB HEMETOLOGY METHOD 05/30/2024 12:43 PM [facility] MPV 9.5 7.0 - 11.0 FL LAB HEMETOLOGY METHOD 05/30/2024 12:43 PM [facility] NRBC 0.0 <1.0 % LAB HEMETOLOGY METHOD 05/30/2024 12:43 PM [facility] NRBC Absolute 0.00 <0.10 K/mcL LAB HEMETOLOGY METHOD 05/30/2024 12:43 PM [facility] Neutrophils Relative 62.8 % LAB HEMETOLOGY METHOD 05/30/2024 12:43 PM [facility] Lymphocytes Relative 25.9 % LAB HEMETOLOGY METHOD 05/30/2024 12:43 PM EST [facility] Monocytes Relative 10.5 % LAB HEMETOLOGY METHOD 05/30/2024 12:43 PM [facility] Eosinophils Relative 0.0 % LAB HEMETOLOGY METHOD 05/30/2024 12:43 PM [facility] Basophils Relative 0.2 % LAB HEMETOLOGY METHOD 05/30/2024 12:43 PM [facility] Immature Granulocytes Relative 0.6 % LAB HEMETOLOGY METHOD 05/30/2024 12:43 PM [facility] Neutrophils Absolute 4.18 1.50 - 7.00 K/mcL LAB HEMETOLOGY METHOD 05/30/2024 12:43 PM [facility] Lymphocytes Absolute 1.72 1.00 - 5.00 K/mcL LAB HEMETOLOGY METHOD 05/30/2024 12:43 PM [facility] Monocytes Absolute 0.70 0.20 - 1.00 K/mcL LAB HEMETOLOGY METHOD 05/30/2024 12:43 PM [facility] Eosinophils Absolute 0.00 0.00 - 0.50 K/mcL LAB HEMETOLOGY METHOD 05/30/2024 12:43 PM [facility] Basophils Absolute 0.01 0.00 - 0.20 K/mcL LAB HEMETOLOGY METHOD 05/30/2024 12:43 PM [facility] Immature Granulocytes Absolute 0.04(H) 0.00 - 0.03 K/mcL LAB HEMETOLOGY METHOD 05/30/2024 12:43 PM [facility] Blood Venous blood specimen / Unknown Venipuncture / Unknown 05/30/2024 12:10 PM EST 05/30/2024 12:33 PM EST us Subramony Sejal HAILE LAB BLOOD ORDERABLE S Final Result [facility] [address] [place] [address], * C-reactive protein (05/30/2024 12:10 PM EST) [facility] C-Reactive Protein 0.32 <=0.50 mg/dL LAB CHEMISTRY METHOD 05/30/2024 1:05 PM EST [facility] Blood Venous blood specimen / Unknown Venipuncture / Unknown 05/30/2024 12:10 PM EST 05/30/2024 12:33 PM EST us Mary Post MD LAB BLOOD ORDERABLE S Final Result Performing Organization Address [facility]/ZIP Co de Phone Number [facility] [address] [place] [address], * Sedimentation rate (05/30/2024 12:10 PM EST) [facility] Sed Rate 10 0 - 20 mm/hr LAB HEMETOLOGY METHOD 05/30/2024 1:07 PM EST [facility] Blood Venous blood specimen / Unknown Venipuncture / Unknown 05/30/2024 12:10 PM EST 05/30/2024 12:33 PM EST us Mary Post MD LAB BLOOD ORDERABLE S Final Result [facility] [address] [place] [address], [place] [phone] * Iron and TIBC (05/30/2024 12:10 PM EST) [facility] Iron 80 50 - 160 mcg/dL LAB CHEMISTRY METHOD 05/30/2024 1:05 PM EST [facility] TIBC 325 250 - 450 mcg/dL LAB CHEMISTRY METHOD 05/30/2024 1:05 PM EST [facility] Iron Saturation 25 20 - 50 % LAB CHEMISTRY METHOD 05/30/2024 1:05 PM EST [facility] Blood Venous blood specimen / Unknown Venipuncture / Unknown 05/30/2024 12:10 PM EST 05/30/2024 12:33 PM EST us Mary Post MD LAB BLOOD ORDERABLE S Final Result Performing Organization Address [facility]/ZIP Me de Phone Number [facility] [address] [place] [address], [place] [phone] * (ABNORMAL) Ferritin (05/30/2024 12:10 PM EST) Pathologist [facility] Ferritin 738(H) 26 - 388 ng/mL LAB CHEMISTRY METHOD 05/30/2024 1:05 PM EST [facility] Blood Venous blood specimen / Unknown Venipuncture / Unknown 05/30/2024 12:10 PM EST 05/30/2024 12:33 PM EST us Mary Post MD LAB BLOOD ORDERABLE S Final Result Performing Organization Address [facility] de Phone Number [facility] [address] [place] [address], [place] [phone] * Lactate dehydrogenase (05/30/2024 12:10 PM EST) Pathologist [facility] LDH 225 120 - 246 unit/L LAB CHEMISTRY METHOD 05/30/2024 1:23 PM EST [facility] Comment:Results verified by repeat testing Blood Venous blood specimen / Unknown Venipuncture / Unknown 05/30/2024 12:10 PM EST 05/30/2024 12:33 PM EST us Mary Post MD LAB BLOOD ORDERABLE S Final Result Performing Organization Address City/[facility]/ZIP Co de Phone Number [facility] [address] [place] [address], [place] [phone] * (ABNORMAL) Uric acid (05/30/2024 12:10 PM EST) [facility] Uric Acid 2.8(L) 3.7 - 9.2 mg/dL LAB CHEMISTRY METHOD 05/30/2024 1:05 PM [facility] Blood Venous blood specimen / Unknown Venipuncture / Unknown 05/30/2024 12:10 PM EST 05/30/2024 12:33 PM EST Mary Post MD LAB BLOOD ORDERABLE S Final Result [facility] [address] [place] [address], [place] [phone] * (ABNORMAL) Comprehensive metabolic panel (05/30/2024 12:10 PM EST) [facility] Sodium 139 133 - 145 mmol/L LAB CHEMISTRY METHOD 05/30/2024 1:05 PM [facility] Potassium 4.4 3.5 - 5.5 mmol/L LAB CHEMISTRY METHOD 05/30/2024 1:05 PM [facility] Chloride 105 96 - 110 mmol/L LAB CHEMISTRY METHOD 05/30/2024 1:05 PM [facility] CO2 27 21 - 32 mmol/L LAB CHEMISTRY METHOD 05/30/2024 1:05 PM [facility] Anion Gap 7 3 - 11 LAB CHEMISTRY METHOD 05/30/2024 1:05 PM [facility] Glucose 133(H) 70 - 100 mg/dL LAB CHEMISTRY METHOD 05/30/2024 1:05 PM [facility] BUN 17 5 - 25 mg/dL LAB CHEMISTRY METHOD 05/30/2024 1:05 PM [facility] Creatinine 0.77 0.70 - 1.30 mg/dL LAB CHEMISTRY METHOD 05/30/2024 1:05 PM [facility] eGFR 106 >=60 mL/min/1. 73m2 LAB CHEMISTRY METHOD 05/30/2024 1:05 PM [facility] Comment:Calculation based on the??Chronic Kidney Disease Epidemiology Collaboration (CKD-EPI) equation refit??without adjustment for race. BUN/Creatinine Ratio 22.1 LAB CHEMISTRY METHOD 05/30/2024 1:05 PM [facility] Calcium 9.6 8.5 - 10.5 mg/dL LAB CHEMISTRY METHOD 05/30/2024 1:05 PM [facility] AST (SGOT) 22 10 - 42 unit/L LAB CHEMISTRY METHOD 05/30/2024 1:05 PM [facility] ALT (SGPT) 44 10 - 60 unit/L LAB CHEMISTRY METHOD 05/30/2024 1:05 PM [facility] Alkaline Phosphatase 95 42 - 121 unit/L LAB CHEMISTRY METHOD 05/30/2024 1:05 PM [facility] Total Protein 6.9 6.0 - 8.0 g/dL LAB CHEMISTRY METHOD 05/30/2024 1:05 PM [facility] Albumin 4.0 3.2 - 5.0 g/dL LAB CHEMISTRY METHOD 05/30/2024 1:05 PM [facility] Total Bilirubin 0.5 0.0 - 1.4 mg/dL LAB CHEMISTRY METHOD 05/30/2024 1:05 PM [facility] Blood Venous blood specimen / Unknown Venipuncture / Unknown 05/30/2024 12:10 PM EST 05/30/2024 12:33 PM EST Mary Post MD LAB BLOOD ORDERABLE S Final Result [facility] [address] [place] [address], documented in this encounter Visit Diagnoses Diagnosis Chronic lymphocytic leukemia (CMS/HCC)- Primary Chronic lymphoid leukemia, without mention of having achieved remission Hypogammaglobulinemia (CMS/HCC) Unspecified hypogammaglobulinemia 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) Psoriatic arthropathy documented in this encounter Administered Medications Inactive Administered Medications - up to 3 most recent administrations Medication Order MAR Action Action Date Dose Rate Site acetaminophen (TYLENOL) tablet 650 mg 650 mg, oral, Once, On Sun05/30/24 at 1230, For 1 doseIndications:Hypogammaglobulin emia (CMS/HCC),Chronic lymphocytic leukemia (CMS/HCC) Given 05/30/2024 12:31 PM EST 650 mg dexAMETHasone (DECADRON) injection 10 mg 10 mg, intravenous, Once, On Sun05/30/24 at 1230, For 1 doseIndications:Hypogammaglobulin emia (CMS/HCC),Chronic lymphocytic leukemia (CMS/HCC) Given 05/30/2024 12:31 PM EST 10 mg diphenhydrAMINE (BENADRYL) capsule 25 mg 25 mg, oral, Once, On Sun05/30/24 at 1230, For 1 doseIndications:Hypogammaglobulin emia (CMS/HCC),Chronic lymphocytic leukemia (CMS/HCC) Given 05/30/2024 12:31 PM EST 25 mg immune globulin (human) (GAMMAGARD) 10 % infusion 30 g 30 g, intravenous, Once, On Sun05/30/24 at 1230, For 1 dose, Administer per institutional standards., Preferred Brand: Other, Enter Brand: GAMMAGARDIndications:Hypogammaglo bulinemia (CMS/HCC),Chronic lymphocytic leukemia (CMS/HCC) New Bag 05/30/2024 1:21 PM EST 30 g documented in this encounter Orders Appointment Requests Count Last Ordered Date Fi rst Ordered Date ONCBCN INFUSION APPOINTMENT REQUEST 08 documented in this encounter Care Teams Hotel Reservation Agent Relationship Specialty Start Date End Date Alicia Pillai MD [address] [place] [id number] PCP - General Internal Medicine 02/04/15 documented as of this encounter
[2024-06-11 13:02] VITALS: BMI 32.3
--- NOTE | 2024-06-11 13:15 | A.OFFVIS_ITS ---
VS Expanded 06/11/24 13:02 Height 5 ft 8 in Weight 212 lb 2.3 oz BMI 32.3 Intake Visit Reasons: t2dm Medication List - Last Reconciled 06/23/[address], [place]AN[place] adalimumab (Humira Pen) 40 mg subcut QWEEK atorvastatin (Lipitor) 10 mg PO BEDTIME dulaglutide 3 mg subcut QWEEK metformin 1,000 mg PO BID Nutrition Presentation Details: Pt presents for MNT f/u for T2DM Pt is followed by Katt Jain NP from [place] Typical intake dairy: yogurt mainly dailyand varies with cheese and non dairy alternatives fish: 0-1 x/wk fruits;daily 2/d starches>30 vegetables: 2/day physical activity: daily life activities hydration: water mainly, diluted juices with water BS Monitoring Most Recent Diabetes Results: No Data to Display [facility] Medical History (Updated 06/23/24 @ 13:[address], [place]) Psoriatic arthritis Assessment & Plan Assessment & Plan (1) T2DM (type 2 diabetes mellitus): Code(s): E11.9 - Type 2 diabetes mellitus without complications Category: Medical Qualifiers: Diabetes mellitus senior living insulin use: without terminal operator use Plan: wt : 102 kg(11/2022), 101 kg 05/2023), 96kg (11/2023), 2 Est kcal needs as per MSJ: 2500 (40% carb, 30% protein/fat) Est fluid needs as per 25-30 ml/d: 2600 Est prot per day as per 1 g/kg bw: 102g Recommend fiber intake : 8-10 g per day and gradually increase to 25-28 g per day for women and 35-38 g for men or as tolerated Recommend sodium intake per day : less than 2000 mg Educated patient on: ( R = reviewed V = verbalizes understanding N/R = needs review N/A = not applicable * Food sources of carbohydrate, adequate serving sizes and its role in various health conditions: R V * Differences between complex carbohydrates a simple carbohydrates, role of fiber in diet: R V * Differences between types of fats and role in diet (mono on saturated fat fatty acids, saturated fatty acids, trans fats): R * Food sources of sodium in salt and healthy modifications for heart health in kidney health: R * Vitamins and minerals: R * Healthy plate method concept: R V * Physical activity: Benefits a precaution: R V * Hypoglycemia protocol (rule of 15): V * Dietary prevention of Hyperglycemia: V * food coloring /additives: R Patient Instructions: Keep hydrated by having water with meals /snack, Continue including a variety of foods following healthy plate method monitor blood sugar fasting bloods ugar goal 80-130 and 2 hours after a meal 80- 180 unless otherwise specified by your doctor Coding Level of Care Code Nutr Indiv Subseq (98075) Diagnoses T2DM (type 2 diabetes mellitus) E11.9 Diabetes mellitus senior living insulin use: without terminal operator use
== END 2024-06-11 13:29 | disposition home or self-care (01) ==
PROVIDERS: PCP Registered Nurse; Visit Provider Dietitian, Registered
DX: E11.9 Type 2 diabetes mellitus without complications (principal)

== ENCOUNTER → 2024-06-11 12:40 | Outpatient (BNVA) | payer BC, SELFPAY | PROVIDERS: PCP Registered Nurse; Visit Provider Dietitian, Registered | DX: E11.9 Type 2 diabetes mellitus without complications (principal); Z71.3 Dietary counseling and surveillance | CPT/HCPCS: 97803 ==

== ENCOUNTER 2024-11-10 13:04 | Outpatient (REF) | payer BC, SELFPAY ==
--- OUTSIDE RECORDS SUMMARY | 2024-11-10 13:50 | XMS_ITS | Clinical Summary ---
Author Organization [facility] Address [address] [place] [address] Phone Care Team Providers Care Documentation Analyst Name Role Phone Alicia Pillai MD Primary Care Provider [phone] Allergies Active Allergy Reactions Criticality Noted Date Comments Amoxicillin Rash Medium 05/22/2010 Other Reaction(s): Rash/Dermatitis Moxifloxacin Nausea And Vomiting 10/12/2014 Other Reaction(s): OTHER Pt reports dizzyness, lightheadedness, passing out. Pt reports dizzyness, lightheadedness, passing out. Medications calcipotriene-bet amethasone 0.005-0.064 % foam Apply 1 Application topically 1 (one) time each day. Active celecoxib (CeleBREX) 200 mg capsule TAKE 1 CAPSULE EVERY DAY NEEDED FOR PAIN WITH FOOD Active LORazepam (ATIVAN) 0.5 mg tablet Take 1 tablet (0.5 mg total) by mouth every 6 hours as needed. Active omeprazole (PriLOSEC) [address] capsule Take 1 capsule (20 mg total) by mouth 1 (one) time each day. Active predniSONE (DELTASONE) 20 mg tablet Take 1 tablet (20 mg total) by mouth. Active metFORMIN (GLUCOPHAGE) 1,000 mg tablet TAKE 1 TABLET BY MOUTH TWICE A DAY 180 tablet 1 Active venetoclax (VENCLEXTA) 10 mg-50 mg- 100 mg Week 1 - Take 20 mg po once daily. Week 2 - Take 50 mg po once daily Week 3 - Take 100 mg po once daily Week 4 - Take 200 mg po once daily. Week 5 - Take 400 mg po once daily. 024 Active ipratropium (ATROVENT) 42 mcg (0.06 %) nasal spray SPRAY 2 SPRAYS BY NASAL ROUTE 4 TIMES DAILY. 45 mL 024 Active Venclexta 100 mg tablet TAKE 4 TABLETS (400 MG) BY MOUTH ONCE DAILY. TAKE WITH A MEAL AND WATER. 120 tablet 5 024 Active allopurinoL (ZYLOPRIM) 300 mg tablet TAKE 1 TABLET BY MOUTH EVERY DAY 90 tablet 025 Active venetoclax (Venclexta) 100 mg tabletIndications :chronic lymphocytic leukemia Take 4 tablets (400 mg total) by mouth 1 (one) time each day Take with a meal and water at approximately the same time each day. Swallow whole; do not crush, chew, or break. 120 tablet 5 025 Active Humira,CF, Pen 40 mg/0.4 mL pen 023 Active blood-glucose sensor (FreeStyle Inga 3 Plus Sensor) deviceIndications :Type 2 diabetes mellitus without complication, unspecified whether termite helper insulin use ([facility] V24, [facility] V28) Inject 1 EA under the skin every 14 (fourteen) days. Box = Kit = EA 6 each 025 2024 Active atorvastatin (LIPITOR) 10 mg tabletIndications :Hyperlipidemia, unspecified hyperlipidemia type Take 1 tablet (10 mg total) by mouth 1 (one) time each day. 90 tablet 1 025 Active albuterol HFA (PROAIR HFA ; PROVENTIL HFA ; VENTOLIN HFA) 90 mcg/actuation inhaler INHALE 2 PUFFS INTO THE LUNGS EVERY 6 HOURS NEEDED FOR COUGH, WHEEZING OR SHORTNESS OF BREATH. 25.5 g 1 025 Active sulfamethoxazole- trimethoprim (BACTRIM,SEPTRA) 400-80 mg per tablet TAKE 1 TABLET BY MOUTH EVERY DAY 30 tablet 5 025 Active sulfamethoxazole- trimethoprim (BACTRIM,SEPTRA) 400-80 mg per tablet TAKE 1 TABLET BY MOUTH DAILY. 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 September 2015: treatment with ibrutinib CLL - Chronic lymphocytic leukemia Herpes zoster 01/22/2012 Overview (03/06/2024): 2011 Psoriasis 05/08/2005 Overview (03/06/2024): Podiatric Medicine Doctor Edwin Lozano Derm Psoriasis with arthropathy ([facility] V24, [facility] V28) 05/08/2005 Overview (03/06/2024): Initial rx with Celebrex and sulfasalazine; changed to methotrexate by dermatology 06/29; change to Enbrel started 03/01 - stopped 12/03 when CLL detected Encounters Date Type Department Care Team Description 10/28/2024 Telephone [facility] Hematology Oncology [address] [place] [phone] [facility] [place] 10/27/2024 9:24 AM EDT - 10/27/2024 11:59 PM EDT Hospital Encounter [facility] [address] [phone] Mary Dill MD Chronic lymphocytic leukemia ([facility] V24, [facility] V28) (Primary Dx); Hypogammaglobulinemia ([facility] V24); Anemia in neoplastic disease; Cervical lymphadenopathy; Transfusion-dependent anemia Discharge Disposition: Home or Self Care 10/06/2024 1:00 PM EDT Office Visit Adult Medicine [facility] [address] [place] [phone] Katt Jain PA Type 2 diabetes mellitus without complication, unspecified whether termite helper insulin use ([facility] V24, [facility] V28) (Primary Dx); Chronic lymphocytic leukemia ([facility] V24, [facility] V28); Hyperlipidemia, unspecified hyperlipidemia type; 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 10/03/2024 9:30 AM EDT - 10/03/2024 11:59 PM EDT Hospital Encounter [address] [phone] Chronic lymphocytic leukemia ([facility] V24, [facility] V28) (Primary Dx); Hypogammaglobulinemia ([facility] V24); Elevated ferritin level; Psoriasis with arthropathy ([facility] V24, [facility] V28) Discharge Disposition: Home or Self Care 10/01/2024 3:30 PM EDT Office Visit [facility] Hematology Oncology [address] [place] [phone] Mary Dill MD Chronic lymphocytic leukemia ([facility] V24, [facility] V28) (Primary Dx); Chronic lymphoid leukemia, without mention of having achieved remission(204.10) ([facility] V24, [facility] V28); Cervical lymphadenopathy; Anemia in neoplastic disease; Hypogammaglobulinemia ([facility] V24); Psoriasis with arthropathy ([facility] V24, [facility] V28); Elevated ferritin level 09/25/2024 Telephone Adult Medicine - [facility] [address] [place] [phone] Alicia Pillai MD Referral 09/12/2024 9:00 AM EDT - 09/12/2024 11:59 PM EDT Hospital Encounter [address] [phone] Mary Dill MD Hypogammaglobulinemia ([facility] V24) (Primary Dx); Chronic lymphocytic leukemia ([facility] V24, [facility] V28) Discharge Disposition: Home or Self Care 08/22/2024 9:19 AM EDT - 08/22/2024 11:59 PM EDT Hospital Encounter [facility] [address] [place] [phone] Mary Dill MD Chronic lymphocytic leukemia ([facility] V24, [facility] V28) (Primary Dx); Hypogammaglobulinemia ([facility] V24) Discharge Disposition: Home or Self Care from Last 3 Months Immunizations Name Administration Dates Next Due Pfizer SARS-CoV-2 COVID-19, mRNA, LNP-S, preservative free 08/26/2020,08/05/2020 Medical History Medical History Date Comments Hypogammaglobulinemia ([facility] V24) 02/03/2024 Social History Tobacco Use Types Packs/Day [...] Sign Reading Time Taken Comments Blood Pressure 136/80 10/27/2024 9:42 AM EDT Pulse 71 10/27/2024 9:42 AM EDT Temperature 36.2 C (97.2 F) 10/27/2024 9:42 AM EDT Respiratory Rate 18 10/03/2024 9:44 AM EDT Oxygen Saturation 100% 10/27/2024 9:42 AM EDT Inhaled Oxygen Concentration - - Weight 98.4 kg (217 lb) 10/06/2024 12:55 PM EDT Height 174 cm (5' 8.5 ) 10/06/2024 12:55 PM EDT Body Mass Index 32.51 10/06/2024 12:55 PM EDT Plan of Treatment Upcoming Encounters Date Type Department Care Team (Late st Contact Info) Description 11/17/2024 9:00 AM EDT Appointment [facility] [address] [phone] 01/01/2025 3:45 PM EDT Office Visit [facility] Hematology Oncology [address] [place] [phone] Mirian-Mary Baca MD [address] [place] [phone] 04/28/2025 2:45 PM EST Office Visit Adult Medicine - [facility] [address] [place] [phone] Alicia Pillai MD [address] [place] [address] Health Maintenance Due Date Last Done Comments Diabetes: Annual Foot Exam 1978 Diabetes: Annual Retina Eye Exam 1978 Hepatitis B Vaccines (1 of 3 - 19+ 3-dose series) 1987 Zoster Vaccines (1 of 2) 1987 Pneumococcal Vaccine: 50+ Years (2 of 2 - PCV) 01/02/2015 01/02/2014 COVID-19 Vaccine (3 - Pfizer risk series) 09/23/2020 08/26/2020, 08/05/2020 Colorectal Cancer Screening: Colonoscopy 03/31/2022 HIV Screening 03/31/2022 Hepatitis C Screening 03/31/2022 Social Influencers of Health Screening 03/31/2022 Depression Screening 04/23/2024 Influenza Vaccine (#1) 2024 , 01/05/2022, 04/24/2021, Additional history exists Diabetes: Blood Sugar Control Test (HGBA1C) 04/03/2025 10/02/2024, 11/28/2023 Diabetes: Annual Urine Albumin-Creatinine Ratio (uACR) 10/02/2025 10/02/2024 Diabetes: Annual GFR (Glomerular Filtration Rate) 10/27/2025 10/27/2024, 10/03/2024, 09/12/2024, Additional history exists DTaP,Tdap,and Td Vaccines (3 - Td or Tdap) 11/15/2028 11/15/2018, 09/26/2004 Cholesterol Screening (Lipid Panel) 10/02/2029 10/02/2024, 01/29/2024 HIB Vaccines Aged Out No longer [...] age to complete this topic Meningococcal B Vaccine Aged Out No l onger eligible based on patient's age to complete this topic RSV Immunization Patients Under 20 months Aged Out No longer eligible based on patient's age to complete this topic Varicella Vaccines Aged Out No longer eligible based on patient's age to complete this topic Procedures Procedure Name Priority Date/Time Associated Diagnosis Comments MANUAL DIFFERENTIAL - SYSMEX WAM STAT 10/27/2024 10:15 AM EDT Chronic lymphocytic leukemia ([facility] V24, [facility] V28) CBC WITH AUTO DIFFERENTIAL STAT 10/27/2024 10:15 AM EDT Chronic lymphocytic leukemia ([facility] V24, [facility] V28) CBC AND DIFFERENTIAL STAT 10/27/2024 10:15 AM EDT Chronic lymphocytic leukemia ([facility] V24, [facility] V28) LACTATE DEHYDROGENASE STAT 10/27/2024 10:15 AM EDT Chronic lymphocytic leukemia ([facility] V24, [facility] V28) URIC ACID STAT 10/27/2024 10:15 AM EDT Chronic lymphocytic leukemia ([facility] V24, [facility] V28) COMPREHENSIVE METABOLIC PANEL STAT 10/27/2024 10:15 AM EDT Chronic lymphocytic leukemia (CMS/HCC V24, CMS/HCC V28) HEMOCHROMATOSIS MUTATION Routine 10/03/2024 11:23 AM EDT Elevated ferritin level CBC WITH AUTO DIFFERENTIAL STAT 10/03/2024 9:46 AM EDT Chronic lymphocytic leukemia (CMS/HCC V24, CMS/HCC V28) CBC AND DIFFERENTIAL STAT 10/03/2024 9:46 AM EDT Chronic lymphocytic leukemia (CMS/HCC V24, CMS/HCC V28) C-REACTIVE PROTEIN Routine 10/03/2024 9: 42 AM EDT Chronic lymphocytic leukemia (CMS/HCC V24, CMS/HCC V28) Psoriasis with arthropathy (CMS/HCC V24, CMS/HCC V28) IRON AND TIBC Routine 10/03/2024 9:42 AM EDT Elevated ferritin level FERRITIN Routine 10/03/2024 9:42 AM EDT Elevated ferritin level LACTATE DEHYDROGENASE Routine 10/03/2024 9:40 AM EDT Chronic lymphocytic leukemia (CMS/HCC V24, CMS/HCC V28) URIC ACID Routine 10/03/2024 9:40 AM EDT Chronic lymphocytic leukemia (CMS/HCC V24, CMS/HCC V28) COMPREHENSIVE METABOLIC PANEL Routine 10/03/2024 9:40 AM EDT Chronic lymphocytic leukemia (CMS/HCC V24, CMS/HCC V28) MICROALBUMIN CREATININE URINE RATIO Routine 10/02/2024 11:10 AM EDT Type 2 diabetes mellitus without complication, without long-term current use of insulin (CMS/HCC V24, CMS/HCC V28) LIPID PANEL WITH REFLEX TO DIRECT LDL Routine 10/02/2024 9:14 AM EDT Diabetes mellitus (CMS/HCC V24, CMS/HCC V28) HEMOGLOBIN A1C Routine 10/02/2024 9:14 AM EDT Type 2 diabetes mellitus without complication, without long-term current use of insulin ([facility]/HCC V24, CMS/HCC V28) LACTATE DEHYDROGENASE STAT 09/12/2024 9:07 AM EDT Chronic lymphocytic leukemia ([facility]/HCC V24, CMS/HCC V28) URIC ACID STAT 09/12/2024 9:07 AM EDT Chronic lymphocytic leukemia ([facility]/HCC V24, CMS/HCC V28) COMPREHENSIVE METABOLIC PANEL STAT 09/12/2024 9:07 AM EDT Chronic lymphocytic leukemia ([facility]/HCC V24, CMS/HCC V28) CBC WITH AUTO DIFFERENTIAL STAT 09/12/2024 9:07 AM EDT Chronic lymphocytic leukemia ([facility]/HCC V24, CMS/HCC V28) CBC AND DIFFERENTIAL STAT 09/12/2024 9:07 AM EDT Chronic lymphocytic leukemia ([facility]/HCC V24, CMS/HCC V28) CBC WITH AUTO DIFFERENTIAL STAT 08/22/2024 9:47 AM EDT Chronic lymphocytic leukemia ([facility]/HCC V24, CMS/HCC V28) TYPE AND SCREEN STAT 08/22/2024 9:47 AM EDT Chronic lymphocytic leukemia ([facility]/HCC V24, CMS/HCC V28) CBC AND DIFFERENTIAL STAT 08/22/2024 9:47 AM EDT Chronic lymphocytic leukemia ([facility]/HCC V24, CMS/HCC V28) LACTATE DEHYDROGENASE STAT 08/22/2024 9:47 AM EDT Chronic lymphocytic leukemia (CMS/HCC V24, CMS/HCC V28) URIC ACID STAT 08/22/2024 9:47 AM EDT Chronic lymphocytic leukemia ([facility]/HCC V24, CMS/HCC V28) COMPREHENSIVE METABOLIC PANEL STAT 08/22/2024 9:47 AM EDT Chronic lymphocytic leukemia ([facility] V24, [facility] V28) from Last 3 Months Results * (ABNORMAL) Manual differential (10/27/2024 10:15 AM EDT) Neutrophils % 26.0 % LAB HEMETOLOGY METHOD 10/27/2024 11:17 AM [facility] Lymphocytes % 61.0 % LAB HEMETOLOGY METHOD 10/27/2024 11:17 AM [facility] Monocytes % 13.0 % LAB HEMETOLOGY METHOD 10/27/2024 11:17 AM [facility] Eosinophils % 0.0 % LAB HEMETOLOGY METHOD 10/27/2024 11:17 AM [facility] Basophils % 0.0 % LAB HEMETOLOGY METHOD 10/27/2024 11:17 AM [facility] Neutrophils Absolute Manual 1.04(L) 1.50 - 7.00 K/mcL LAB HEMETOLOGY METHOD 10/27/2024 11:17 AM [facility] Lymphocytes Absolute 2.44 1.00 - 5.00 K/mcL LAB HEMETOLOGY METHOD 10/27/2024 11:17 AM [facility] Monocytes Absolute Manual 0.52 0.20 - 1.00 K/mcL LAB HEMETOLOGY METHOD 10/27/2024 11:17 AM [facility] Eosinophils Absolute Manual 0.00 0.00 - 0.50 K/mcL LAB HEMETOLOGY METHOD 10/27/2024 11:17 AM [facility] Basophils Absolute Manual 0.00 0.00 - 0.20 K/mcL LAB HEMETOLOGY METHOD 10/27/2024 11:17 AM [facility] Rbc Morphology Consistent with indices Consistent with indices, Normal for [place] LAB HEMETOLOGY METHOD 10/27/2024 11:17 AM EDT [facility] Platelet Morphology - WAM See Note(A) Normal LAB HEMETOLOGY METHOD 10/27/2024 11:17 AM EDT [facility] Comment:PLT: Normal Blood Venous blood specimen / Unknown Venipuncture / Unknown 10/27/2024 10:15 AM EDT 10/27/2024 10:27 AM EDT Mary Post MD LAB BLOOD ORDERABLE S Final Result [facility] [address] [place] [address], * (ABNORMAL) CBC auto differential (10/27/2024 10:15 AM EDT) Only the most recent of4 resultswithin the time period is included. WBC 4.0(L) 4.8 - 10.8 K/mcL LAB HEMETOLOGY METHOD 10/27/2024 11:17 AM [facility] RBC 4.60 4.50 - 5.50 M/mcL LAB HEMETOLOGY METHOD 10/27/2024 11:17 AM [facility] Hemoglobin 15.3 13.5 - 17.5 g/dL LAB HEMETOLOGY METHOD 10/27/2024 11:17 AM [facility] Hematocrit 42.9 42.0 - 54.0 % LAB HEMETOLOGY METHOD 10/27/2024 11:17 AM [facility] MCV 94.1 79.0 - 98.0 FL LAB HEMETOLOGY METHOD 10/27/2024 11:17 AM [facility] MCH 33.6(H) 27.0 - 32.0 pcg LAB HEMETOLOGY METHOD 10/27/2024 11:17 AM [facility] MCHC 35.7 32.0 - 37.0 g/dL LAB HEMETOLOGY METHOD 10/27/2024 11:17 AM EDT [facility] RDW 13.3 11.0 - 15.0 % LAB HEMETOLOGY METHOD 10/27/2024 11:17 AM EDT [facility] Platelets 131 130 - 400 K/mcL LAB HEMETOLOGY METHOD 10/27/2024 11:17 AM EDT [facility] MPV 9.9 7.0 - 11.0 FL LAB HEMETOLOGY METHOD 10/27/2024 11:17 AM EDT [facility] NRBC 0.0 <1.0 % LAB HEMETOLOGY METHOD 10/27/2024 11:17 AM EDT [facility] NRBC Absolute 0.00 <0.10 K/mcL LAB HEMETOLOGY METHOD 10/27/2024 11:17 AM EDT [facility] Blood Venous blood specimen / Unknown Venipuncture / Unknown 10/27/2024 10:15 AM EDT 10/27/2024 10:27 AM EDT us Aydeeramalfonso Post MD LAB BLOOD ORDERABLE S Final Result [facility] [address] [place] [address], * Uric acid (10/27/2024 10:15 AM EDT) Only the most recent of4 resultswithin the time period is included. Uric Acid 6.1 3.7 - 9.2 mg/dL LAB CHEMISTRY METHOD 10/27/2024 10:59 AM EDT [facility] Blood Venous blood specimen / Unknown Venipuncture / Unknown 10/27/2024 10:15 AM EDT 10/27/2024 10:27 AM EDT us Subramony Mirian-Keven MD LAB BLOOD ORDERABLE S Final Result Performing Organization Address [facility]/ZIP Co de Phone Number [facility] [address] [place] [address], [place] [phone] * Lactate dehydrogenase (10/27/2024 10:15 AM EDT) Only the most recent of4 resultswithin the time period is included. Pathologist [facility] LDH 172 120 - 246 unit/L LAB CHEMISTRY METHOD 10/27/2024 10:59 AM EDT [facility] Blood Venous blood specimen / Unknown Venipuncture / Unknown 10/27/2024 10:15 AM EDT 10/27/2024 10:27 AM EDT Mary Post MD LAB BLOOD ORDERABLE S Final Result Performing Organization Address [facility] de Phone Number [facility] [address] [place] [address], [place] [phone] * (ABNORMAL) Comprehensive metabolic panel (10/27/2024 10:15 AM EDT) Only the most recent of4 resultswithin the time period is included. [facility] Sodium 139 133 - 145 mmol/L LAB CHEMISTRY METHOD 10/27/2024 10:59 AM EDT [facility] Potassium 4.0 3.5 - 5.5 mmol/L LAB CHEMISTRY METHOD 10/27/2024 10:59 AM EDT [facility] Chloride 106 96 - 110 mmol/L LAB CHEMISTRY METHOD 10/27/2024 10:59 AM EDT [facility] CO2 27 21 - 32 mmol/L LAB CHEMISTRY METHOD 10/27/2024 10:59 AM EDT [facility] Anion Gap 6 3 - 11 LAB CHEMISTRY METHOD [facility] Glucose 145(H) 70 - 100 mg/dL LAB CHEMISTRY METHOD 10/27/2024 10:59 AM [facility] BUN 14 5 - 25 mg/dL LAB CHEMISTRY METHOD 10/27/2024 10:59 AM [facility] Creatinine 0.86 0.70 - 1.30 mg/dL LAB CHEMISTRY METHOD 10/27/2024 10:59 AM [facility] eGFR 102 >=60 mL/min/1. 73m2 LAB CHEMISTRY METHOD 10/27/2024 10:59 AM [facility] Comment:Calculation based on the Chronic Kidney Disease Epidemiology Collaboration (CKD-EPI) equation refit without adjustment for race. BUN/Creatinine Ratio 16.3 LAB CHEMISTRY METHOD 10/27/2024 10:59 AM [facility] Calcium 9.0 8.5 - 10.5 mg/dL LAB CHEMISTRY METHOD 10/27/2024 10:59 AM [facility] AST (SGOT) 23 10 - 42 unit/L LAB CHEMISTRY METHOD 10/27/2024 10:59 AM [facility] ALT (SGPT) 60 10 - 60 unit/L LAB CHEMISTRY METHOD 10/27/2024 10:59 AM [facility] Alkaline Phosphatase 98 42 - 121 unit/L LAB CHEMISTRY METHOD 10/27/2024 10:59 AM [facility] Total Protein 6.6 6.0 - 8.0 g/dL LAB CHEMISTRY METHOD 10/27/2024 10:59 AM [facility] Albumin 3.8 3.2 - 5.0 g/dL LAB CHEMISTRY METHOD 10/27/2024 10:59 AM [facility] Total Bilirubin 0.5 0.0 - 1.4 mg/dL LAB CHEMISTRY METHOD 10/27/2024 10:59 AM [facility] Blood Venous blood specimen / Unknown Venipuncture / Unknown 10/27/2024 10:15 AM EDT 10/27/2024 10:27 AM EDT Mary Post MD LAB BLOOD ORDERABLE S Final Result [facility]NA [facility] ([facility]) [facility] [address] [place] [address], * Hemochromatosis mutation (10/03/2024 11:23 AM EDT) [facility] Signature Hereditary Hemochromatosis See Below 10/13/2024 10:36 PM EDT [facility] Comment: RESULT: POSITIVE FOR ONE HFE GENE PATHOGENIC VARIANT: H63D (HETEROZYGOTE) Interpretation: One copy of the H63D pathogenic variant in the HFE gene was detected. This patient is negative for the C282Y pathogenic variant. 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 This result reduces the likelihood of hereditary hemochromatosis (HH). However, it does not rule out the presence of other pathogenic variants within the HFE gene or a diagnosis of HH. The risk of this individual to carry an HFE pathogenic variant other than those tested in this assay depends greatly on family and clinical history as well as ethnicity. This assay does not test for other primary or secondary iron overload disorders. Consider genetic counseling and DNA testing for at-risk family members. Laboratory results and submitted clinical information reviewed by Bisi Dee, PhD, [facility]. DETAILED ASSAY INFORMATION: Hereditary hemochromatosis (HH) is an autosomal recessive disorder of iron metabolism that can result in iron overload and potential organ failure. It is one of the most common genetic disorders in individuals of - ancestry, with an estimated carrier frequency of 10%. HH is caused by pathogenic variants in the HFE gene. Most individuals with HH (60-90%) are homozygous for the C282Y pathogenic variant. A smaller percentage of affected individuals are either compound heterozygous for the C282Y and H63D pathogenic variants (3%-8%), or homozygous for the H63D pathogenic variant (approximately 1%). METHODOLOGY: This assay detects two pathogenic variants in the HFE gene, C282Y (NM 519735.2: c.845G>A, p.[id number]) and H63D (NM 775208.2: c.187C>G, p.[id number]), that are commonly associated with HH. These variants are detected by multiplex-polymerase chain reaction (PCR) amplification, followed by restriction enzyme digestion and capillary electrophoresis. LIMITATIONS: This assay does not detect other pathogenic variants in the HFE gene that may be associated with HH. Although rare, false positive or false negative results may occur. All results should be interpreted in the context of clinical findings, relevant history, and other laboratory data. Health care providers, please contact your local [employer]' genetic counselor or call [phone] ( [phone] for assistance with the interpretation of these results. This test was developed and its analytical performance characteristics have been determined by [employer] [facility]. It has not been cleared or approved by FDA. This assay has been validated pursuant to the CLIA regulations and is used for clinical purposes. For more information, please refer to http://education.[employer])/faq/hemochromatosis. (This link is being provided for informational/educational purposes only.) A portion of the testing was performed at [facility]. Reviewed and signed by Laboratory results and submitted clinical information reviewed by Bisi Dee, PhD, [facility], Signed on 10/13/2024 at 18:07 Test Performed at: [facility] [address] [address] Cole Mccray MD, PhD, AMBER Blood Venous blood specimen / Unknown Venipuncture / Unknown 10/03/2024 11:23 AM EDT 10/03/2024 12:19 PM EDT us Subramalfonso Post MD LAB MOLECULAR DIAGN OSTICS ORDERABLES Final Result [address] [place] [address] * Iron and TIBC (10/03/2024 9:42 AM EDT) Iron 106 50 - 160 mcg/dL LAB CHEMISTRY METHOD 10/03/2024 11:12 AM EDT [facility] Comment:Hemolysis present TIBC 298 250 - 450 mcg/dL LAB CHEMISTRY METHOD 10/03/2024 11:12 AM EDT [facility] Iron Saturation 36 20 - 50 % LAB CHEMISTRY METHOD 10/03/2024 11:12 AM EDT [facility] Blood Venous blood specimen / Unknown Venipuncture / Unknown 10/03/2024 9:42 AM EDT 10/03/2024 10:06 AM EDT us Mary Post MD LAB BLOOD ORDERABLE S Final Result Performing Organization Address [facility]/ZIP Co de Phone Number [facility] [address] [place] [address], [place] [phone] * C-reactive protein (10/03/2024 9:42 AM EDT) C-Reactive Protein <0.29 <=0.50 mg/dL LAB CHEMISTRY METHOD 10/03/2024 11:12 AM EDT [facility] Blood Venous blood specimen / Unknown Venipuncture / Unknown 10/03/2024 9:42 AM EDT 10/03/2024 10:06 AM EDT us Mary Post MD LAB BLOOD ORDERABLE S Final Result Performing Organization Address [facility]/ZIP Co de Phone Number [facility] [address] [place] [address], [place] [phone] * (ABNORMAL) Ferritin (10/03/2024 9:42 AM EDT) Ferritin 1,157(H) 26 - 388 ng/mL LAB CHEMISTRY METHOD 10/03/2024 11:12 AM EDT [facility] Comment:Hemolysis present Blood Venous blood specimen / Unknown Venipuncture / Unknown 10/03/2024 9:42 AM EDT 10/03/2024 10:06 AM EDT Mary Post MD LAB BLOOD ORDERABLE S Final Result Performing Organization Address [facility]/ZIP Co de Phone Number [facility] [address] [place] [address], [place] [phone] * Microalbumin creatinine urine ratio (10/02/2024 11:10 AM EDT) Creatinine, Urine 124.0 mg/dL LAB CHEMISTRY METHOD 10/02/2024 4:27 PM EDT [facility] Microalb, Ur 8.1 0.0 - 29.0 mg/L LAB CHEMISTRY METHOD 10/02/2024 4:27 PM EDT [facility] Microalb/Creat Ratio 7 <30 mg/g creat LAB CHEMISTRY METHOD 10/02/2024 4:27 PM EDT [facility] Urine Urine specimen obtained by clean catch procedure / Unknown Non-blood Collection / Unknown 10/02/2024 11:10 AM EDT 10/02/2024 11:11 AM EDT Katt ARCE LAB URINE ORDERABLES Final Resul t Performing Organization Address [facility] de Phone Number [facility] [address] [place] [address], [place] [phone] * (ABNORMAL) Lipid panel with reflex to direct LDL (10/02/2024 9:14 AM EDT) Cholesterol 154 0 - 200 mg/dL LAB CHEMISTRY METHOD 10/02/2024 12:37 PM EDT [facility] Triglycerides 334(H) 0 - 150 mg/dL LAB CHEMISTRY METHOD 10/02/2024 12:37 PM EDT [facility] HDL 32(L) >=40 mg/dL LAB CHEMISTRY METHOD 10/02/2024 12:37 PM EDT [facility] LDL Calculated 55 0 - 100 mg/dL LAB CHEMISTRY METHOD 10/02/2024 12:37 PM EDT [facility] VLDL Cholesterol Manuel 66.8 mg/dL LAB CHEMISTRY METHOD 10/02/2024 12:37 PM EDT [facility] Non HDL Chol. (LDL+VLDL) 122 <145 mg/dL LAB CHEMISTRY METHOD 10/02/2024 12:37 PM EDT [facility] Chol/HDL Ratio 4.8(H) 0.0 - 4.4 LAB CHEMISTRY METHOD 10/02/2024 12:37 PM EDT [facility] Blood Venous blood specimen / Unknown Venipuncture / Unknown 10/02/2024 9:14 AM EDT 10/02/2024 9:14 AM EDT Katt ARCE LAB BLOOD ORDERABLES Final Resul t Performing Organization Address City/[facility]/ZIP Co de Phone Number [facility] [address] [place] [address], [place] [phone] * Hemoglobin A1c (10/02/2024 9:14 AM EDT) Hemoglobin A1C 5.7 <6.5 % LAB CHEMISTRY METHOD 10/02/2024 1:54 PM EDT [facility] Mean Bld Glu Estim. 117 mg/dL LAB CHEMISTRY METHOD 10/02/2024 1:54 PM EDT [facility] Blood Venous blood specimen / Unknown Venipuncture / Unknown 10/02/2024 9:14 AM EDT 10/02/2024 9:14 AM EDT us Katt ARCE LAB BLOOD ORDERABLES Final Resul t [facility] [address] [place] [address], [place] [phone] * Type and screen (08/22/2024 9:47 AM EDT) ABO Group A 08/22/2024 11:55 AM EDT [facility] Rh Type Positive 08/22/2024 11:55 AM EDT [facility] Antibody Screen Negative 08/22/2024 11:55 AM EDT [facility] Blood Venous blood specimen / Unknown Venipuncture / Unknown 08/22/2024 9:47 AM EDT 08/22/2024 10:03 AM EDT Subgilles Post MD LAB BLOOD BANK TEST ORDERABLES Final Result [facility] [address] [place] [address], [place] [phone] from Last 3 Months Insurance [facility] Care Teams Documentation Analyst Relationship Specialty Start Date End Date Alicia Pillai MD [address] [place] [phone] PCP - General Internal Medicine 02/04/15
--- OUTSIDE RECORDS SUMMARY | 2024-11-10 13:50 | XMS_ITS ---
Author Organization [facility] Address [address] [place] [address] Care Team Providers Care Galley Boy Name Role Phone Fernando Pillai MD Primary [...] Overview: Psoriasis with arthropathy Current Oncology Plans [facility] BCN OP RITUXIMAB (IV/SC) WEEKLY [...] Sod Suc (PF) (Solu-CORTEF)riTUXimab-hyal uronidase (RITUXAN HYCELA) 1400-79322 MG -UT/11.7MLriTUXimab-pvvr (RUXIENCE) infusion (Outpatient record)Saline Flush [...] (Solu-CORTEF) injection (PF) 100 mgriTUXimab-hyaluronidase (RITUXAN HYCELA) 1400-01730 MG -UT/11.7ML subcutaneous injection 1,400 mgSaline Flush [...] (Solu-CORTEF) injection (PF) 100 mgriTUXimab-hyaluronidase (RITUXAN HYCELA) 1400-38047 MG -UT/11.7ML subcutaneous injection 1,400 mgSaline Flush 0.9 % injection 1 Syringesodium chloride 0.9% (NS) infusionsodium chloride 0.9% bolus (NS) 500 mL Other Current Plans [facility] IVIG (GAMMAGARD) (ADULT)* Plan Start Date:03/17/2022 Plan Provider:Mary Jovel MD Linked Problems Hypogammaglobulinemia (HCC) Treatment Medications acetaminophen (TYLENOL)albut ladonna (PROVENTIL)dexamethasone (DECADRON)diphenhydrAMINE (BENADRYL)EPINEPHrine (Anaphylaxis) (ADRENALIN)famotidine (PF) (PEPCID)Hydrocortisone Sod Suc (PF) (Solu-CORTEF)Immune Globulin (Human)immune globulin (Human) (GAMMAGARD)meperidine (DEMEROL) 25 MG/MLSaline Flush 0.9 %sodium chloride (NS) 0.9 %sodium chloride 0.9% bolus (NS) Past Plans Radiation Treatments * No radiation treatments are documented for this [facility]. Treatments may have been administered in another system.
--- OUTSIDE RECORDS SUMMARY | 2024-11-10 13:50 | XMS_ITS | Encounter Summary ---
Author Organization [facility] Address [address] [place] [phone] Phone Care Team Providers Care Zoo Caretaker Name Role Phone Fernando Pilali MD Primary Care Provider + Manny Gandhi MD Unavailable [phone] Manny Gandhi MD Unavailable [phone] Mary Post MD Unavailable + [phone] Encounter Details Date Type Department Care Team (Late st Contact Info) Description 01/03/2017 Procedure Pass DF IMG OUTSIDE IMG [address] [place] [address] Social History Tobacco Use Types Packs/Day Years Used Date Smoking Tobacco: Unknown Alcohol Use Standard Drinks/Week Comments Not Asked 0 (1 standard drink = 0.6 oz pur e alcohol) Sex and Gender Information Value Date Recorded Sex Assigned at Not on file Legal Sex Male 7:47 PM EST Gender Identity Not on file Sexual Orientation Not on file documented as of this encounter Plan of Treatment Upcoming Encounters Date Type Department Care Team (Late st Contact Info) Description 11/20/2024 3:00 PM EDT [facility] [place] [address] [facility] [place] [address] Robbin Treadwell MD [address] [place] [address] [email or web address] 11/20/2024 4:00 PM EDT Office Visit [facility], Division of Hematologic Oncology, [facility] [place] [address] [facility] [place] [address] Robbin Treadwell MD [address] [place] [address] [email or web address] documented as of this encounter Visit Diagnoses Not on filedocumented in this encounter Care Teams Zoo Caretaker Relationship Specialty Start Date End Date Fernando Pillai MD [address] [place] [phone] PCP - General Internal Medicine 05/11/15 Manny Gandhi MD [address] [place] [phone] [email or web address] 07/21/15 02/21/17 Manny Gandhi MD [address] [place] [phone] [email or web address] Referring Physician Hematology 07/22/15 7 Mary Post MD [address] [place] [phone] [email or web address] Primary Oncologist Internal Medicine 02/22/17 documented as of this encounter Additional Source Comments The information contained in this document represents components of the legal health record. It is not the complete legal health record.[facility]
== END 2024-11-10 13:05 | disposition home or self-care (01) ==
LOC: HO.BBR 13:04
PROVIDERS: PCP Pediatrics; Visit Provider Internal Medicine
DX: Z13.89 Encounter for screening for other disorder (principal)

== ENCOUNTER 2024-12-09 14:19 | Outpatient (AMB) | payer BC, SELFPAY ==
[2024-12-09 14:32] VITALS: BMI 32.6
--- NOTE | 2024-12-09 14:32 | MHC.AMNUTRGE ---
VS Expanded 12/09/24 14:32 Height 5 ft 8 in Weight 214 lb 4.629 oz BMI 32.6 Intake Visit Reasons: T2DM Medication List - Last Reconciled 12/15/[address], LDN atorvastatin (Lipitor) 10 mg PO BEDTIME dulaglutide 3 mg subcut QWEEK metformin 1,000 mg PO BID omega-3 fatty acids 1,000 mg PO DAILY sulfamethoxazole-trimethoprim 400-80 mg (Bactrim) 1 tab PO DAILY venetoclax (Venclexta) 100 mg PO DAILY Nutrition Presentation Details: Pt presents for MNT for T2DM Pt reports doing well, eating a variety of foods Reports fasting bg ranging from 105-120 mg/dl and highest bg at 220 on oacc Most recent a1c at 5.7% in September 2024, denies hypoglycemia food frequency dairy: 3/day fish : 2 /wk fruits : 3+/day etoh: 2-3 x/wk, 8-16 oz serving fried foods : 0-1/wk empty souleymane foods 0-1/d no diarrhea/constipation physical activity : swimming, walking daily Takes omega 3 fatty acid 1000 mg/d Takes a multivitamin with no iron and omega 3- 1000 mg/d [email or web address] Equation Height: 5 ft 8 in Weight: 214 lb Resting Metabolic Rate: 1778.70 Calculated Activity Level: Mild Activity Calories Needed to Maintain Weight: 2445.71 [facility] Medical History (Updated 06/23/24 @ 13:[address], LDN) Psoriatic arthritis Assessment & Plan Assessment & Plan (1) T2DM (type 2 diabetes mellitus): Code(s): E11.9 - Type 2 diabetes mellitus without complications Category: Medical Qualifiers: Diabetes mellitus long term care administrator insulin use: without long term care administrator use Plan: wt : 102 kg(11/2022), 101 kg 05/2023), 96kg (11/2023), 06/17, 97 kg (12/15) Est kcal needs as per MSJ: 2400 (40% carb, 30% protein/fat) Est fluid needs as per 25-30 ml/d:2400- 2900 Est prot per day as per 0.80 1 g/kg bw: 78- 100g Recommend fiber intake : 8-10 g per day and gradually increase to 25-28 g per day for women and 35-38 g for men or as tolerated Recommend sodium intake per day : less than 2300 mg Educated patient on: ( R = reviewed V = verbalizes understanding N/R = needs review N/A = not applicable Food sources of carbohydrate, adequate serving sizes and its role in various health conditions: R V Differences between complex carbohydrates a simple carbohydrates, role of fiber in diet: R V Differences between types of fats and role in diet (mono on saturated fat fatty acids, saturated fatty acids, trans fats): R ,v Food sources of sodium in salt and healthy modifications for heart health in kidney health: R ,v Vitamins and minerals: R,v Healthy plate method concept: R V Physical activity: Benefits a precaution: R V Hypoglycemia protocol (rule of 15): V Dietary prevention of Hyperglycemia: V food coloring /additives: R Patient Instructions: Continue following healthy plate method, choosing a variety of foods Keep hydrated by having water, low sugar beverages with meals/snacks Continue monitoring blood glucose, follow rule of 15 if developing low blood sugar and notify your doctor of any low blood sugar for further asessment, notify your doctor of consistently elevated blood sugar (greater than 130 in the fasting state and greater than 180, 2 hours after meals unless otherwised specified by your doctor) Coding Level of Care Code Nutr Indiv Subseq (92237) Diagnoses T2DM (type 2 diabetes mellitus) E11.9 Diabetes mellitus long term care administrator insulin use: without long term care administrator use Time Spent (min) 30
--- OUTSIDE RECORDS SUMMARY | 2024-12-09 15:39 | XMS_ITS ---
Author Organization [facility] Address [address] [place] [address] Care Team Providers Care Double Corner Cutter Name Role Phone Fernando Pillai MD Primary [...] Overview: Psoriasis with arthropathy Current Oncology Plans [facility] BCN OP RITUXIMAB (IV/SC) WEEKLY X4* Plan [...] Sod Suc (PF) (Solu-CORTEF)riTUXimab-hyal uronidase (RITUXAN HYCELA) 1400-33169 MG -UT/11.7MLriTUXimab-pvvr (RUXIENCE) infusion (Outpatient record)Saline Flush [...] (Solu-CORTEF) injection (PF) 100 mgriTUXimab-hyaluronidase (RITUXAN HYCELA) 1400-22364 MG -UT/11.7ML subcutaneous injection 1,400 mgSaline Flush [...] (Solu-CORTEF) injection (PF) 100 mgriTUXimab-hyaluronidase (RITUXAN HYCELA) 1400-14685 MG -UT/11.7ML subcutaneous injection 1,400 mgSaline Flush 0.9 % injection 1 Syringesodium chloride 0.9% (NS) infusionsodium chloride 0.9% bolus (NS) 500 mL Other Current Plans [facility] IVIG (GAMMAGARD) (ADULT)* Plan Start Date:03/17/2022 Plan Provider:Mary Jovel MD Linked Problems Hypogammaglobulinemia (HCC) Treatment Medications acetaminophen (TYLENOL)albut ladonna (PROVENTIL)dexamethasone (DECADRON)diphenhydrAMINE (BENADRYL)EPINEPHrine (Anaphylaxis) (ADRENALIN)famotidine (PF) (PEPCID)Hydrocortisone Sod Suc (PF) (Solu-CORTEF)Immune Globulin (Human)immune globulin (Human) (GAMMAGARD)meperidine (DEMEROL) 25 MG/MLSaline Flush 0.9 %sodium chloride (NS) 0.9 %sodium chloride 0.9% bolus (NS) Past Plans Radiation Treatments * No radiation treatments are documented for this patient in [facility]. Treatments may have been administered in another system.
--- OUTSIDE RECORDS SUMMARY | 2024-12-09 15:39 | XMS_ITS | Clinical Summary ---
Author Organization [facility] Address [address] [place] [address] Phone Care Team Providers Care Operating Room Surgical Technologist Name Role Phone Alicia Pillai MD Primary Care Provider [phone] Allergies Active Allergy Reactions Criticality Noted Date Comments Amoxicillin Rash Medium 05/22/2010 Other Reaction(s): Rash/Dermatitis Moxifloxacin Nausea And Vomiting 10/12/2014 Other Reaction(s): OTHER Pt reports dizzyness, lightheadedness, passing out. Pt reports dizzyness, lightheadedness, passing out. Medications calcipotriene-be tamethasone 0.005-0.064 % foam Apply 1 [...] tablet (20 mg total) by mouth. Active venetoclax (VENCLEXTA) 10 mg-50 mg- 100 [...] MOUTH EVERY DAY 90 tablet 025 Active Humira,CF, Pen 40 mg/0.4 mL pen 023 Active blood-glucose sensor (FreeStyle Inga 3 Plus Sensor) deviceIndication s:Type 2 diabetes mellitus without complication, unspecified whether halfway insulin use ([facility] V24, [facility] V28) Inject 1 EA under the skin every 14 (fourteen) days. Box = Kit = EA 6 each 025 2024 Active atorvastatin (LIPITOR) 10 mg tabletIndication s:Hyperlipidemia , unspecified hyperlipidemia type Take 1 tablet (10 mg total) by mouth 1 (one) time each day. 90 tablet 1 025 Active albuterol HFA (PROAIR HFA ; PROVENTIL HFA ; VENTOLIN HFA) 90 mcg/actuation inhaler INHALE 2 PUFFS INTO THE LUNGS EVERY 6 HOURS NEEDED FOR COUGH, WHEEZING OR SHORTNESS OF BREATH. 25.5 g 1 025 Active sulfamethoxazole -trimethoprim (BACTRIM,SEPTRA) 400-80 mg per tablet TAKE 1 TABLET BY MOUTH EVERY DAY 30 tablet 5 025 Active Trulicity 3 mg/0.5 mL pen injector injectionIndicat ions:Type 2 diabetes mellitus without complication, without long-term current use of insulin ([facility] V24, [facility] V28) INJECT 0.5 ML (3 MG) SUBCUTANEOUSLY EVERY 7 DAYS 6 mL 1 025 Active metFORMIN (GLUCOPHAGE) 1,000 mg tablet Take 1 tablet (1,000 mg total) by mouth 2 (two) times a day. 180 tablet 1 025 Active venetoclax (Venclexta) 100 mg tabletIndication s:chronic lymphocytic leukemia Take 4 tablets (400 mg total) by mouth 1 (one) time each day Take with a meal and water at approximately the same time each day. Swallow whole; do not crush, chew, or break. 120 tablet 5 025 Active metFORMIN (GLUCOPHAGE) 1,000 mg tablet TAKE 1 TABLET BY MOUTH TWICE A DAY 180 tablet 1 024 2024 Discontinued(R eorder) sulfamethoxazole -trimethoprim (BACTRIM,SEPTRA) 400-80 mg per tablet TAKE 1 TABLET BY MOUTH DAILY. 30 tablet 5 025 2024 Discontinued Trulicity 3 mg/0.5 mL pen injector injectionIndicat ions:Type 2 diabetes mellitus without complication, without long-term current use of insulin ([facility] V24, [facility] V28) Inject 0.5 mL (3 mg total) under the skin every 7 (seven) days. 6 mL 025 2024 Discontinued venetoclax (Venclexta) 100 mg tabletIndication s:chronic lymphocytic leukemia Take 4 tablets (400 mg total) by mouth 1 (one) time each day Take with a meal and water at approximately the same time each day. Swallow whole; do not crush, chew, or break. 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 September 2015: treatment with ibrutinib CLL - Chronic lymphocytic leukemia Herpes zoster 01/22/2012 Overview (03/06/2024): 2011 Psoriasis 05/08/2005 Overview (03/06/2024): [facility] Psoriasis with arthropathy ([facility] V24, [facility] V28) 05/08/2005 Overview (03/06/2024): Initial rx with Celebrex and sulfasalazine; changed to methotrexate by dermatology 06/29; change to Enbrel started 03/01 - stopped 12/03 when CLL detected Encounters Date Type Department Care Team Description 11/28/2024 Telephone [facility] Hematology Oncology [address] [place] [phone] Kassandra Cortez SC 11/21/2024 8:48 AM EDT - 11/21/2024 11:59 PM EDT Hospital Encounter [facility] [address] [place] [phone] Mary Dill MD Chronic lymphocytic leukemia ([facility] V24, [facility] V28) (Primary Dx); Hypogammaglobulinemia ([facility] V24); Transfusion-dependent anemia Discharge Disposition: Home or Self Care 10/28/2024 Telephone [facility] Hematology Oncology [address] [place] [phone] Sinai Gould [place] 10/27/2024 9:24 AM EDT - 10/27/2024 11:59 PM EDT Hospital Encounter [facility] [address] [place] [phone] Mary Dill MD Chronic lymphocytic leukemia ([facility] V24, [facility] V28) (Primary Dx); Hypogammaglobulinemia ([facility] V24); Anemia in neoplastic disease; Cervical lymphadenopathy; Transfusion-dependent anemia Discharge Disposition: Home or Self Care 10/06/2024 1:00 PM EDT Office Visit Adult Medicine [address] [phone] Katt Jain PA Type 2 diabetes mellitus without complication, unspecified whether halfway insulin use ([facility] V24, [facility] V28) (Primary Dx); Chronic lymphocytic leukemia ([facility] V24, [facility] V28); Hyperlipidemia, unspecified hyperlipidemia type; 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 10/03/2024 9:30 AM EDT - 10/03/2024 11:59 PM EDT Hospital Encounter [address] [phone] Chronic lymphocytic leukemia ([facility] V24, [facility] V28) (Primary Dx); Hypogammaglobulinemia ([facility] V24); Elevated ferritin level; Psoriasis with arthropathy ([facility] V24, [facility] V28) Discharge Disposition: Home or Self Care 10/01/2024 3:30 PM EDT Office Visit [facility] Hematology Oncology [address] [place] [phone] Mary Dill MD Chronic lymphocytic leukemia ([facility] V24, [facility] V28) (Primary Dx); Chronic lymphoid leukemia, without mention of having achieved remission(204.10) ([facility] V24, [facility] V28); Cervical lymphadenopathy; Anemia in neoplastic disease; Hypogammaglobulinemia ([facility] V24); Psoriasis with arthropathy ([facility] V24, [facility] V28); Elevated ferritin level 09/25/2024 Telephone Adult [facility] [address] [place] [phone] Alicia Pillai MD Referral 09/12/2024 9:00 AM EDT - 09/12/2024 11:59 PM EDT Hospital Encounter [address] [phone] Mary Dill MD Hypogammaglobulinemia ([facility] V24) (Primary Dx); Chronic lymphocytic leukemia ([facility] V24, [facility] V28) Discharge Disposition: Home or Self Care from Last 3 Months Immunizations Name Administration Dates Next Due Pfizer SARS-CoV-2 COVID-19, mRNA, LNP-S, preservative free 08/26/2020,08/05/2020 Medical History Medical History Date Comments Hypogammaglobulinemia (CMS/HCC V24) 02/03/2024 Social History Tobacco Use Types [...] Sign Reading Time Taken Comments Blood Pressure 133/80 11/21/2024 9:00 AM EDT Pulse 66 11/21/2024 9:00 AM EDT Temperature 36.6 C (97.8 F) 11/21/2024 9:00 AM EDT Respiratory Rate 18 10/03/2024 9:44 AM EDT Oxygen Saturation 100% 11/21/2024 9:00 AM EDT Inhaled Oxygen Concentration - - Weight 98 kg (216 lb) 11/21/2024 9:00 AM EDT Height 174 cm (5' 8.5 ) 10/06/2024 12:55 PM EDT Body Mass Index 32.36 10/06/2024 12:55 PM EDT Plan of Treatment Upcoming Encounters Date Type Department Care Team (Late st Contact Info) Description 12/12/2024 9:30 AM EDT Appointment [facility] [address] [place] [address] [address] [place] [phone] 01/01/2025 3:45 PM EDT Office Visit [facility] Hematology Oncology [address] [place] [phone] Mary Post MD [address] [place] [phone] 04/28/2025 2:45 PM EST Office Visit Adult Medicine [address] [phone] Alicia Pillai MD [address] [place] [address] Health Maintenance Due Date Last Done Comments [...] 10/02/2024 Diabetes: Annual GFR (Glomerular Filtration Rate) 11/20/2025 11/20/2024, 10/27/2024, 10/03/2024, Additional history exists DTaP,Tdap,and Td Vaccines (3 [...] Procedure Name Priority Date/Time Associated Diagnosis Comments IRON AND TIBC Routine 11/21/2024 10:22 AM EDT Chronic lymphocytic leukemia ([facility] V24, [facility] V28) Hypogammaglobulinem ia ([facility] V24) Transfusion-depende nt anemia FERRITIN Routine 11/21/2024 10:22 AM EDT Chronic lymphocytic leukemia ([facility] V24, [facility] V28) Hypogammaglobulinem ia ([facility] V24) Transfusion-depende nt anemia C-REACTIVE PROTEIN Routine 11/21/2024 10 :22 AM EDT Chronic lymphocytic leukemia ([facility] V24, [facility] V28) Hypogammaglobulinem ia ([facility] V24) Transfusion-depende nt anemia URIC ACID STAT 11/21/2024 10:22 AM EDT Chronic lymphocytic leukemia ([facility] V24, [facility] V28) MANUAL DIFFERENTIAL - SYSMEX WAM STAT 10/27/2024 10:15 AM EDT Chronic lymphocytic leukemia ([facility] V24, [facility] V28) CBC WITH AUTO DIFFERENTIAL STAT 10/27/2024 10:15 AM EDT Chronic lymphocytic leukemia ([facility] V24, [facility] V28) CBC AND DIFFERENTIAL STAT 10/27/2024 10:15 AM EDT Chronic lymphocytic leukemia ([facility] V24, [facility] V28) LACTATE DEHYDROGENASE STAT 10/27/2024 10:15 AM EDT Chronic lymphocytic leukemia ([facility] V24, [facility] V28) URIC ACID STAT 10/27/2024 10:15 AM EDT Chronic lymphocytic leukemia (CMS/HCC V24, CMS/HCC V28) COMPREHENSIVE METABOLIC PANEL STAT 10/27/2024 10:15 [...] Routine 10/02/2024 9:14 AM EDT Diabetes mellitus ([facility] V24, [facility] V28) HEMOGLOBIN A1C Routine 10/02/2024 9:14 AM EDT Type 2 diabetes mellitus without complication, without long-term current use of insulin ([facility] V24, [facility] V28) LACTATE DEHYDROGENASE STAT 09/12/2024 9:07 AM EDT Chronic lymphocytic leukemia ([facility] V24, [facility] V28) URIC ACID STAT 09/12/2024 9:07 AM EDT Chronic lymphocytic leukemia ([facility] V24, [facility] V28) COMPREHENSIVE METABOLIC PANEL STAT 09/12/2024 9:07 AM EDT Chronic lymphocytic leukemia ([facility] V24, [facility] V28) CBC WITH AUTO DIFFERENTIAL STAT 09/12/2024 9:07 AM EDT Chronic lymphocytic leukemia ([facility] V24, [facility] V28) CBC AND DIFFERENTIAL STAT 09/12/2024 9:07 AM EDT Chronic lymphocytic leukemia ([facility] V24, [facility] V28) from Last 3 Months Results * Iron and TIBC (11/21/2024 10:22 AM EDT) Only the most recent of2 resultswithin the time period is included. Iron 105 50 - 160 mcg/dL LAB CHEMISTRY METHOD 11/21/2024 12:25 PM EDT [facility] TIBC 288 250 - 450 mcg/dL LAB CHEMISTRY METHOD 11/21/2024 12:25 PM [facility] Iron Saturation 36 20 - 50 % LAB CHEMISTRY METHOD 11/21/2024 12:25 PM [facility] Blood Venous blood specimen / Unknown Venipuncture / Unknown 11/21/2024 10:22 AM EDT 11/21/2024 11:11 AM EDT us Mary Post MD LAB BLOOD ORDERABLE S Final Result Performing Organization Address City/[facility]/ZIP Co de Phone Number [facility] [address] [place] [address], [place] [phone] * C-reactive protein (11/21/2024 10:22 AM EDT) Only the most recent of2 resultswithin the time period is included. C-Reactive Protein <0.29 <=0.50 mg/dL LAB CHEMISTRY METHOD 11/21/2024 12:20 PM EDT [facility] Blood Venous blood specimen / Unknown Venipuncture / Unknown 11/21/2024 10:22 AM EDT 11/21/2024 11:11 AM EDT us Mary Post MD LAB BLOOD ORDERABLE S Final Result Performing Organization Address [facility] de Phone Number [facility] [address] [place] [address], [place] [phone] * Uric acid (11/21/2024 10:22 AM EDT) Only the most recent of4 resultswithin the time period is included. Uric Acid 4.9 3.7 - 9.2 mg/dL LAB CHEMISTRY METHOD 11/21/2024 12:25 PM EDT [facility] Blood Venous blood specimen / Unknown Venipuncture / Unknown 11/21/2024 10:22 AM EDT 11/21/2024 11:11 AM EDT us Mary Post MD LAB BLOOD ORDERABLE S Final Result Performing Organization Address City/[facility] Co de Phone Number [facility] [address] [place] [address], [place] [phone] * (ABNORMAL) Ferritin (11/21/2024 10:22 AM EDT) Only the most recent of2 resultswithin the time period is included. Ferritin 929(H) 26 - 388 ng/mL LAB CHEMISTRY METHOD 11/21/2024 12:25 PM EDT [facility] Blood Venous blood specimen / Unknown Venipuncture / Unknown 11/21/2024 10:22 AM EDT 11/21/2024 11:11 AM EDT Mary Post MD LAB BLOOD ORDERABLE S Final Result [facility] [address] [place] [address], * (ABNORMAL) Manual differential (10/27/2024 10:15 AM EDT) [facility] Neutrophils % 26.0 % LAB HEMETOLOGY METHOD 10/27/2024 11:17 AM EDT [facility] Lymphocytes % 61.0 % LAB HEMETOLOGY METHOD 10/27/2024 11:17 AM T [facility] Monocytes % 13.0 % LAB HEMETOLOGY METHOD 10/27/2024 11:17 AM EDT [facility] Eosinophils % 0.0 % LAB HEMETOLOGY METHOD 10/27/2024 11:17 AM EDT [facility] Basophils % 0.0 % LAB HEMETOLOGY METHOD 10/27/2024 11:17 AM EDT [facility] Neutrophils Absolute Manual 1.04(L) 1.50 - 7.00 K/mcL LAB HEMETOLOGY METHOD 10/27/2024 11:17 AM EDT [facility] Lymphocytes Absolute 2.44 1.00 - 5.00 K/mcL LAB HEMETOLOGY METHOD 10/27/2024 11:17 AM EDT [facility] Monocytes Absolute Manual 0.52 0.20 - 1.00 K/[facility] LAB HEMETOLOGY METHOD 10/27/2024 11:17 AM EDT [facility] Eosinophils Absolute Manual 0.00 0.00 - 0.50 K/[facility] LAB HEMETOLOGY METHOD 10/27/2024 11:17 AM EDT [facility] Basophils Absolute Manual 0.00 0.00 - 0.20 K/[facility] LAB HEMETOLOGY METHOD 10/27/2024 11:17 AM EDT [facility] Rbc Morphology Consistent with indices Consistent with indices, Normal for [place] LAB HEMETOLOGY METHOD 10/27/2024 11:17 AM EDT [facility] Platelet Morphology - WAM See Note(A) Normal LAB HEMETOLOGY METHOD 10/27/2024 11:17 AM EDT [facility] Comment:PLT: Normal Blood Venous blood specimen / Unknown Venipuncture / Unknown 10/27/2024 10:15 AM EDT 10/27/2024 10:27 AM EDT Mary Post MD LAB BLOOD ORDERABLE S Final Result [facility] [address] [place] [address], * (ABNORMAL) CBC auto differential (10/27/2024 10:15 AM EDT) Only the most recent of3 resultswithin the time period is included. WBC 4.0(L) 4.8 - 10.8 K/[facility] LAB HEMETOLOGY METHOD 10/27/2024 11:17 AM EDT [facility] RBC 4.60 4.50 - 5.50 M/[facility] LAB HEMETOLOGY METHOD 10/27/2024 11:17 AM EDT [facility] Hemoglobin 15.3 13.5 - 17.5 g/dL LAB HEMETOLOGY METHOD 10/27/2024 11:17 AM [facility] Hematocrit 42.9 42.0 - 54.0 % LAB HEMETOLOGY METHOD 10/27/2024 11:17 AM [facility] MCV 94.1 79.0 - 98.0 FL LAB HEMETOLOGY METHOD 10/27/2024 11:17 AM [facility] MCH 33.6(H) 27.0 - 32.0 pcg LAB HEMETOLOGY METHOD 10/27/2024 11:17 AM [facility] MCHC 35.7 32.0 - 37.0 g/dL LAB HEMETOLOGY METHOD 10/27/2024 11:17 AM [facility] RDW 13.3 11.0 - 15.0 % LAB HEMETOLOGY METHOD 10/27/2024 11:17 AM [facility] Platelets 131 130 - 400 K/mcL LAB HEMETOLOGY METHOD 10/27/2024 11:17 AM [facility] MPV 9.9 7.0 - 11.0 FL LAB HEMETOLOGY METHOD 10/27/2024 11:17 AM [facility] NRBC 0.0 <1.0 % LAB HEMETOLOGY METHOD 10/27/2024 11:17 AM [facility] NRBC Absolute 0.00 <0.10 K/mcL LAB HEMETOLOGY METHOD 10/27/2024 11:17 AM [facility] Blood Venous blood specimen / Unknown Venipuncture / Unknown 10/27/2024 10:15 AM EDT 10/27/2024 10:27 AM EDT Mary Post MD LAB BLOOD ORDERABLE S Final Result Performing Organization Address City/State/[facility] Co de Phone Number [facility] [address] [place] [address], * Lactate dehydrogenase (10/27/2024 10:15 AM EDT) Only the most recent of3 resultswithin the time period is included. Pathologist [facility] LDH 172 120 - 246 unit/L LAB CHEMISTRY METHOD 10/27/2024 10:59 AM EDT [facility] Blood Venous blood specimen / Unknown Venipuncture / Unknown 10/27/2024 10:15 AM EDT 10/27/2024 10:27 AM EDT Mray Post MD LAB BLOOD ORDERABLE S Final Result Performing Organization Address [facility] de Phone Number [facility] [address] [place] [address], * (ABNORMAL) Comprehensive metabolic panel (10/27/2024 10:15 AM EDT) Only the most recent of3 resultswithin the time period is included. Pathologist [facility] Sodium 139 133 - 145 mmol/L LAB CHEMISTRY METHOD 10/27/2024 10:59 AM EDT [facility] Potassium 4.0 3.5 - 5.5 mmol/L LAB CHEMISTRY METHOD 10/27/2024 10:59 AM EDT [facility] Chloride 106 96 - 110 mmol/L LAB CHEMISTRY METHOD 10/27/2024 10:59 AM EDT [facility] CO2 27 21 - 32 mmol/L LAB CHEMISTRY METHOD 10/27/2024 10:59 AM EDT [facility] Anion Gap 6 3 - 11 LAB CHEMISTRY METHOD 10/27/2024 10:59 AM EDT [facility] Glucose 145(H) 70 - 100 mg/dL LAB CHEMISTRY METHOD 10/27/2024 10:59 AM EDT [facility] BUN 14 5 - 25 mg/dL LAB CHEMISTRY METHOD 10/27/2024 10:59 AM [facility] Creatinine 0.86 0.70 - 1.30 mg/dL LAB CHEMISTRY METHOD 10/27/2024 10:59 AM [facility] eGFR 102 >=60 mL/min/1. 73m2 LAB CHEMISTRY METHOD 10/27/2024 10:59 AM [facility] Comment:Calculation based on the Chronic Kidney Disease Epidemiology Collaboration (CKD-EPI) equation refit without adjustment for race. BUN/Creatinine Ratio 16.3 LAB CHEMISTRY METHOD 10/27/2024 10:59 AM [facility] Calcium 9.0 8.5 - 10.5 mg/dL LAB CHEMISTRY METHOD 10/27/2024 10:59 AM [facility] AST (SGOT) 23 10 - 42 unit/L LAB CHEMISTRY METHOD 10/27/2024 10:59 AM [facility] ALT (SGPT) 60 10 - 60 unit/L LAB CHEMISTRY METHOD 10/27/2024 10:59 AM [facility] Alkaline Phosphatase 98 42 - 121 unit/L LAB CHEMISTRY METHOD 10/27/2024 10:59 AM [facility] Total Protein 6.6 6.0 - 8.0 g/dL LAB CHEMISTRY METHOD 10/27/2024 10:59 AM [facility] Albumin 3.8 3.2 - 5.0 g/dL LAB CHEMISTRY METHOD 10/27/2024 10:59 AM [facility] Total Bilirubin 0.5 0.0 - 1.4 mg/dL LAB CHEMISTRY METHOD 10/27/2024 10:59 AM [facility] Blood Venous blood specimen / Unknown Venipuncture / Unknown 10/27/2024 10:15 AM EDT 10/27/2024 10:27 AM EDT us Subramony Subramonia-Keven MD LAB BLOOD ORDERABLE S Final Result [facility] [address] [place] [address], * Hemochromatosis mutation (10/03/2024 11:23 AM EDT) [facility] Signature Hereditary Hemochromatosis See Below 10/13/2024 10:36 [...] clinical information reviewed by Bisi Dee, PhD, [facility]. DETAILED ASSAY INFORMATION: Hereditary hemochromatosis (HH) is [...] variants in the HFE gene, C282Y (NM 875569.2: c.845G>A, p.[id number]) and H63D (NM 033093.2: c.187C>G, p.[id number]), that are commonly associated with HH. These [...] Health care providers, please contact your local [facility] genetic counselor or call [phone] ( ) for assistance with the interpretation of these results. This test was developed and its analytical performance characteristics have been determined by [facility]. It has not been cleared or approved by FDA. This assay has been validated pursuant to the CLIA regulations and is used for clinical purposes. For more information, please refer to http://education.[employer]/faq/hemochromatosis. (This link is being provided for informational/educational purposes only.) A portion of the testing was performed at [facility]. Reviewed and signed by Laboratory results and submitted clinical information reviewed by Bisi Dee, PhD, [facility], Signed on 10/13/2024 at 18:07 Test Performed at: [facility] [address] [address] Cole Mccray MD, PhD, [facility] Blood Venous blood specimen / Unknown Venipuncture / Unknown 10/03/2024 11:23 AM EDT 10/03/2024 12:19 PM EDT us Subramalfonso Post MD LAB MOLECULAR DIAGN OSTICS ORDERABLES Final Result [facility] [address] [place] [address] * Microalbumin creatinine urine ratio (10/02/2024 11:10 AM EDT) Creatinine, Urine 124.0 mg/dL LAB CHEMISTRY METHOD 10/02/2024 4:27 PM EDT [facility] Microalb, Ur 8.1 0.0 - 29.0 mg/L LAB CHEMISTRY METHOD 10/02/2024 4:27 PM T [facility] Microalb/Creat Ratio 7 <30 mg/g creat LAB CHEMISTRY METHOD 10/02/2024 4:27 PM [facility] Urine Urine specimen obtained by clean catch procedure / Unknown Non-blood Collection / Unknown 10/02/2024 11:10 AM EDT 10/02/2024 11:11 AM EDT us Katt [facility] LAB URINE ORDERABLES Final Resul t [facility] [address] [place] [address], [place] [phone] * (ABNORMAL) Lipid panel with reflex to direct LDL (10/02/2024 9:14 AM EDT) Cholesterol 154 0 - 200 mg/dL LAB CHEMISTRY METHOD 10/02/2024 12:37 PM [facility] Triglycerides 334(H) 0 - 150 mg/dL LAB CHEMISTRY METHOD 10/02/2024 12:37 PM [facility] HDL 32(L) >=40 mg/dL LAB CHEMISTRY METHOD 10/02/2024 12:37 PM [facility] LDL Calculated 55 0 - 100 mg/dL LAB CHEMISTRY METHOD 10/02/2024 12:37 PM [facility] VLDL Cholesterol Manuel 66.8 mg/dL LAB CHEMISTRY METHOD 10/02/2024 12:37 PM [facility] Non HDL Chol. (LDL+VLDL) 122 <145 mg/dL LAB CHEMISTRY METHOD 10/02/2024 12:37 PM [facility] Chol/HDL Ratio 4.8(H) 0.0 - 4.4 LAB CHEMISTRY METHOD 10/02/2024 12:37 PM [facility] Blood Venous blood specimen / Unknown Venipuncture / Unknown 10/02/2024 9:14 AM EDT 10/02/2024 9:14 AM EDT [facility] BLOOD ORDERABLES Final Resul t Performing Organization Address City/[facility]/ZIP Co de Phone Number [facility] [address] [place] [address], [place] [phone] * Hemoglobin A1c (10/02/2024 9:14 AM EDT) [facility] Signature Hemoglobin A1C 5.7 <6.5 % LAB CHEMISTRY METHOD 10/02/2024 1:54 PM EDT [facility] Mean Bld Glu Estim. 117 mg/dL LAB CHEMISTRY METHOD 10/02/2024 1:54 PM EDT [facility] Blood Venous blood specimen / Unknown Venipuncture / Unknown 10/02/2024 9:14 AM EDT 10/02/2024 9:14 AM EDT [facility] BLOOD ORDERABLES Final Resul t Performing Organization Address [facility]/ZIP Co de Phone Number [facility] [address] [place] [address], [place] [phone] from Last 3 Months Insurance [facility] Care Teams Operating Room Surgical Technologist Relationship Specialty Start Date End Date Alicia Pillai MD [address] [place] [address] PCP - General Internal Medicine 02/04/15
--- OUTSIDE RECORDS SUMMARY | 2024-12-09 15:39 | XMS_ITS | Encounter Summary ---
Author Organization [facility] Address [address] [place] [address] Phone Care Team Providers Care Jointer Submarine Cable Name Role Phone Fernando Pillai MD Primary Care Provider + Manny Gandhi MD Unavailable [phone] Manny Gandhi MD Unavailable [phone] Mary Post MD Unavailable + [phone] Encounter Details Date Type Department Care Team (Late st Contact Info) Description 01/03/2017 Procedure Pass DF IMG OUTSIDE IMG [address] [place] [address] Social History Tobacco Use Types Packs/Day Years [...] Care Team (Late st Contact Info) Description 05/21/2025 2:00 PM EST [facility] [place] [address] [place] [address], 2nd [place] [address] Carrie Walsh MD [address] [place] [phone] [email or web address] 05/21/2025 3:00 PM EST Office Visit [facility] for [facility], Division of Hematologic Oncology, [facility] [place] [address] [facility], 7th [place] [address] Robbin Treadwell MD [address] [place] [address] [email or web address] documented as of this encounter Visit Diagnoses Not on filedocumented in this encounter Care Teams Jointer Submarine Cable Relationship Specialty Start Date End Date Fernando Pillai MD [address] [place] [address] PCP - General Internal Medicine 05/11/15 Manny Gandhi MD [address] [place] [phone] [email or web address] Hematology 07/21/15 02/21/17 Manny Gandhi MD [address] [place] [address] [email or web address] Referring Physician Hematology 07/22/15 7 Mary Post MD [address] [place] [phone] [email or web address] Primary Oncologist Internal Medicine 02/22/17 documented as of this encounter Additional Source Comments The information contained in this document represents components of the legal health record. It is not the complete legal health record.[facility]
[2024-12-15 09:46] VITALS: BMI 32.5
== END 2024-12-09 15:43 | disposition home or self-care (01) ==
LOC: HO.ENCR 14:20
PROVIDERS: PCP Registered Nurse; Visit Provider Dietitian, Registered
DX: E11.9 Type 2 diabetes mellitus without complications (principal)

== ENCOUNTER → 2024-12-09 14:19 | Outpatient (BNVA) | payer BC, SELFPAY | PROVIDERS: PCP Registered Nurse; Visit Provider Dietitian, Registered | DX: E11.9 Type 2 diabetes mellitus without complications (principal) | CPT/HCPCS: 97803 ==

== ENCOUNTER 2025-02-10 13:48 | Outpatient (REF) | payer BC, SELFPAY ==
--- OUTSIDE RECORDS SUMMARY | 2024-01-25 09:30 | XMS_ITS | Encounter Summary ---
Author Organization [facility] [place] [address] Care Team Providers Care Institutional Cook Name Role Phone Alicia Pillai MD Primary Care Provider [phone] Encounter Details Date Type Department Care Team (Latest Contact Info) Description 01/25/2024 9:30 AM EDT Hospital Encounter TH HISTORIC ENCOUNTERS EASTERN CONVERSION ONLY Nonfamilial hypogammaglobulinemia (CMS/HCC V24) Social History Tobacco Use Types Packs/Day Years Used Date Smoking Tobacco: Never Smokeless Tobacco: Never Alcohol Use Standard Drinks/Week Comments Yes 0 (1 standard drink = 0.6 oz pur e alcohol) Sex and Gender Information Value Date Recorded Sex Assigned at Male 05/02/2024 9:33 AM EST Legal Sex Male 3:23 AM EST Gender Identity Male 05/02/2024 9:33 AM EST Sexual Orientation Choose not to disclose 2024 9:33 AM EST documented as of this encounter Last Filed Vital Signs Vital Sign Reading Time Taken Comments Blood Pressure - - Pulse - - Temperature - - Respiratory Rate - - Oxygen Saturation - - Inhaled Oxygen Concentration - - Weight 94.5 kg (208 lb 6.4 oz) 01/25/2024 9:56 A M EDT Height 172.7 cm (5' 8 ) 01/16/2024 3:26 PM EDT Body Mass Index 31.69 01/16/2024 3:26 PM EDT documented in this encounter Progress Notes * Historical, Notes Results - 01/25/2024 9:30 AM EDT Arrived amb for IVIG, order for STAT labs and 1 unit PRBC as well today. Pt is in good spirits, sawDr. Ayers yesterday and plan to change to a new medication regimen. Tells me his Hg was 7.1 yesterday, curious to know what his count will be today. Still has cough, prod at times, feels like postnasal drip, voice is hoarse, this has been ongoing. Swelling in neck is stable. PIV placed in righthand, labs drawn and sent STAT. 1020 Dr. Baca at chairside seeing pt 1034 IVIG infusion started at 0.5 ml/kg/hr, stepped per protocol to a max rate of 3 ml/kg/hr (284 ml/hr) 1039 Critical lab WBC 108.1, Hg 6.9, Hct 21.[address] Baca by Barbi Rodriguez RN, pt alreadyhas order for 1 unit PRBC transfusion today. Reviewed lab results with pt. 1241 IVIG infusion complete without incident. 1253 Blood transfusion started, call blanco in reach. 1515 Blood transfusion completed without incident, pt to return next week to recheck labs, possibleblood transfusion. IVIG in 3 weeks, calendar of appts provided. Left amb, stable at D/C. documented in this encounter Plan of Treatment Upcoming Encounters Date Type Department Care Team (Late st Contact Info) Description 02/13/2025 9:30 AM EDT Appointment [facility] [address] [place] [address] [address] [place] [address] 04/06/2025 3:30 PM EST Office Visit [facility] Hematology Oncology [address] [place] [phone] Mirian-Mary Baca MD [address] [place] [phone] 04/30/2025 3:30 PM EST Office Visit Adult Medicine - [place] [address] [place] [phone] Cecy Simmons NP [address] [place] [address] documented as of this encounter Visit Diagnoses Diagnosis Nonfamilial hypogammaglobulinemia (CMS/[facility] V24) documented in this encounter Care Teams Institutional Cook Relationship Specialty Start Date End Date Alicia Pillai MD [address] [place] [address] PCP - General Internal Medicine 02/04/15 documented as of this encounter
--- OUTSIDE RECORDS SUMMARY | 2024-02-01 09:30 | XMS_ITS | Encounter Summary ---
Author Organization [facility] [place] [address] Care Team Providers Care Can Pusher Name Role Phone Alicia Pillai MD Primary Care Provider [phone] Encounter Details Date Type Department Care Team (Latest Contact Info) Description 02/01/2024 9:30 AM EDT Hospital Encounter TH HISTORIC ENCOUNTERS [facility]ASTERN CONVERSION ONLY Chronic lymphocytic leukemia of B-cell type not having achieved remission (CMS/HCC V24, CMS/HCC V28) Social History Tobacco Use Types Packs/Day Years [...] - Inhaled Oxygen Concentration - - Weight 92.5 kg (204 lb) 02/01/2024 9:36 AM EDT Height 172.7 cm (5' 8 ) 01/16/2024 3:26 PM EDT Body Mass Index 30.57 01/31/2024 3:05 PM EDT documented in this encounter Progress Notes * Historical, Notes Results - 02/01/2024 9:30 AM EDT Images from the original note were not included. Progress Notes by Jenni Clifton RN at 02/01/2024 9:30 AM Author: Jenni Clifton RN Service: -- Author Type: Registered Nurse Filed: 02/01/2024 4:33 PM Encounter Date: 02/01/2024 Status: Signed Fx Artist: Jenni Clifton RN (Registered Nurse) Pt arrives today for stat labs and possible blood transfusion. PIV inserted RIGHT hand. Stat labs drawn and sent. 1035 labs resulted and reported to Dr Baca. New order received for 1 unit PRBC. 1200 PRBC infusing step 1. Pt tolerating well. Pt resting in chair on phone. Call blanco in reach. 1415 Transfusion complete. Pt tolerated well. PIV removed without incident. Pt reports his new med Venetoclax should be arriving today. Dr Baca advised to continue allopurinol and to start the med once he gets it, weekly labs and to stay on Brukinsa for the next 2 weeks. Pt agreed. Appointment in place for next week. Stable at discharge. documented in this encounter Plan of Treatment Upcoming Encounters Date Type Department Care Team (Late st Contact Info) Description 02/13/2025 9:30 AM EDT Appointment [facility] [address] [place] [phone] 04/06/2025 3:30 PM EST Office Visit [facility] Hematology Oncology [address] [place] [phone] Mirian-Mary Baca MD [address] [place] [phone] 04/30/2025 3:30 PM EST Office Visit Adult Medicine [facility] [address] [place] [phone] Cecy Simmons NP [address] [place] [address] documented as of this encounter Visit Diagnoses Diagnosis Chronic lymphocytic leukemia of B-cell type not having achieved remission (CMS/[facility] V24, CMS/[facility] V28) documented in this encounter Care Teams Can Pusher Relationship Specialty Start Date End Date Alicia Pillai MD [address] [facility] [place] [address] PCP - General Internal Medicine 02/04/15 documented as of this encounter
--- OUTSIDE RECORDS SUMMARY | 2024-02-08 09:30 | XMS_ITS | Encounter Summary ---
Author Organization [facility] [place] [address] Care Team Providers Care Line Manager Name Role Phone Alicia Pillai MD Primary Care Provider [phone] Encounter Details Date Type Department Care Team (Latest Contact Info) Description 02/08/2024 9:30 AM EDT Hospital Encounter TH HISTORIC [...] Progress Notes * Historical, Notes Results - 02/08/2024 9:30 AM EDT 1000: PT arrives this morning for STAT labs and possible blood transfusion. PT continues to report his chronic cough with mild green sputum. PT also reporting some mild fatigue although otherwise stable assessment. PIV inserted, +BR noted, labs obtained and sent, PIV flushed per protocol and fluidsinitiated. PT given a coffee, denies other concerns, call blanco in reach. 1100: Labs resulted with critical - WBC 70.5 Other labs to note as followed: Hgb 7.0 Hct 21.6 Prelim ANC 2.99 Uric acid 5.6 LDH 629 - All reported to Dr. Baca and Dr. Baca given orders for 1 unit PRBCs. PT made aware, order placed and faxed to blood bank. PT denies concerns, call blanco in reach. 1200: Blood transfusion initiated att, denies other concerns, listening to music, call blanco in reach. 1215: PT continues to tolerate blood transfusion, VS WNL, denies other concerns, call blanco in reach. 1300: PT continues to tolerate blood transfusion well without concern, up to BR with a steady gait,call blanco in reach. 1400: Blood transfusion completed without concern. PT provided with future apt reminder, verbalizedunderstanding. PIV removed, tip in tact, dressing applied. PT left unit amb, stable at D/C. documented in this encounter Plan of Treatment Upcoming Encounters Date Type Department Care Team (Late st Contact Info) Description 02/13/2025 9:30 AM EDT Appointment [facility] [address] [place] [address] [address] [place] [phone] 04/06/2025 3:30 PM EST Office Visit [facility] Hematology Oncology [address] [place] [phone] Mirian-Mary Baca MD [address] [place] [phone] 04/30/2025 3:30 PM EST Office Visit Adult Medicine - [address] [phone] Cecy Simmons NP [address] [place] [address] documented as of this encounter Visit Diagnoses Diagnosis Chronic lymphocytic leukemia of B-cell type not having achieved remission (CMS/HCC V24, CMS/HCC V28) documented in this encounter Care Teams Line Manager Relationship Specialty Start Date End Date Alicia Pillai MD [address] [place] [address] PCP - General Internal Medicine 02/04/15 documented as of this encounter
--- OUTSIDE RECORDS SUMMARY | 2024-02-15 08:00 | XMS_ITS | Encounter Summary ---
Author Organization [facility] [place] [address] Care Team Providers Care Property Developer Name Role Phone Alicia Pillai MD Primary Care Provider [phone] Encounter Details Date Type Department Care Team (Latest Contact Info) Description 02/15/2024 8:00 AM EDT Hospital Encounter TH HISTORIC ENCOUNTERS [...] - Inhaled Oxygen Concentration - - Weight 93.1 kg (205 lb 4 oz) 02/15/2024 8:09 AM EDT Height 172.7 cm (5' 7.99 ) 02/15/2024 8:09 AM ED T Body Mass Index 31.22 02/15/2024 8:09 AM EDT documented in this encounter Progress Notes * Historical, Notes Results - 02/15/2024 8:00 AM EDT Pt arrives for stat labs and IVIG ( and possible blood transfusion ). Pt assessed and reports he continues with chronic cough - MD aware- but pt states it seems like it is slightly more productive. Pt also states I think I m due for the EKG I usually get every 3 months . Call to gayatri ARCE concerning - orders received for CXRAY and EKG. Iv inserted , labs drawn - line clamped and capped and pt to registration then to Xray department. Pt returns to unit. Pre meds given . Pt relaxing , drinking fluids and listening to music. Call blanco in reach . IVIG started At 0.5ml/kg/hr and will increase per protocol to a max of 3ml/kg/hr. Pt comfortable. Labs resulted HGB- 6.6 WBC-18.2. CXRAY - negative. Pt made aware and is surprised the venetoclax iseffecting his WBC so quickly- call to Gayatri [facility]CE concerning . Orders received for pt to receive 2 units PRBC and lasix 20 mg in between units. Pt updated and is in aggrement with receiving 2 unitstoday . Consent signed. IVIG complete- pt tolerated well. Line flushed and clamped and capped while waiting for first unit of blood. Vitals stable - first unit hung as ordered. Call blanco in reach. Pt resting easily. Second unit of blood transfused without issue- vitals stable. IV flushed and removed . Pt given schedule of next appointments. Pt discharged with steady gait. * Historical, Notes Results - 02/15/2024 8:00 AM EDT Script sent to pts pharmacy by gayatri ARCE for prednisone - tapering dose- to control cough . Pt is in aggreement with this and will start on 02/15. documented in this encounter Plan of Treatment Upcoming Encounters Date Type Department Care Team (Late st Contact Info) Description 02/13/2025 9:30 AM EDT Appointment [facility] [address] [place] [address] [address] [place] [address] 04/06/2025 3:30 PM EST Office Visit [facility] Hematology Oncology [address] [place] [phone] Mirian-Mary Baca MD [address] [place] [address] 04/30/2025 3:30 PM EST Office Visit Adult Medicine [facility] [address] [place] [phone] Cecy Simmons NP [address] [place] [address] documented as of this encounter Procedures Procedure Name Priority Date/Time Associated Diagnosis Comments ECG 02/15/2024 documented in this encounter Results * ECG (02/15/2024) us Provider Onbase CV HISTORICAL CONV PROCEDURES Final Result documented in this encounter Visit Diagnoses Diagnosis Nonfamilial hypogammaglobulinemia (CMS/HCC V24) documented in this encounter Care Teams Property Developer Relationship Specialty Start Date End Date Alicia Pillai MD [address] [place] [address] PCP - General Internal Medicine 02/04/15 documented as of this encounter
--- OUTSIDE RECORDS SUMMARY | 2024-02-15 08:51 | XMS_ITS | Encounter Summary ---
Author Organization [facility] [place] [address] Care Team Providers Care Legal Document Specialist Name Role Phone Alicia Pillai MD Primary Care Provider [phone] Encounter Details Date Type Department Care Team (Latest Contact Info) Description 02/15/2024 8:51 AM EDT Hospital Encounter TH HISTORIC ENCOUNTERS EASTERN CONVERSION ONLY Aparna Dia PA [address] [place] [address] Chronic lymphocytic leukemia of B-cell type not [...] AM EST documented as of this encounter Plan of Treatment Upcoming Encounters Date Type Department Care Team (Late st Contact Info) Description 02/13/2025 9:[address] [facility] [address] [place] [phone] 04/06/2025 3:30 PM EST Office Visit [facility] Hematology Oncology [address] [place] [phone] Mary Post MD [address] [place] [address] 04/30/2025 3:30 PM EST Office Visit Adult Medicine - [place] [address] [place] [phone] Cecy Simmons NP [address] [place], [place] [phone] documented as of this encounter Procedures Procedure Name Priority Date/Time Associated Diagnosis Comments CHEST ROUTINE 2 VIEWS Routine 02/15/2024 9:08 AM EDT Chronic lymphocytic leukemia of B-cell type not having achieved remission (CMS/[facility] V24, CMS/[facility] V28) documented in this encounter Results * CHEST ROUTINE 2 VIEWS (02/15/2024 9:08 AM EDT) Anatomical Region Laterality Modality Radiographic Tabitha ging 02/15/2024 8:57 AM EDT Narrative 02/15/2024 9:08 AM EDT [facility] Diagnostic Imaging Department [address] [place], [place] [phone] Patient: OBEYDANYRALFO.B./Age/Sex: 1970 - 53 - M Unit#: [id number] Location/Status: SPDIGEN/REG CLI Mnemonic/Ordering Site: CHESTXR/SPDI Ordering Physician: APARNA DIA DR Chest Routine 2 Views - 02/15/24901 Report Status:Signed PA and lateral views of the chest dated 02/15/2024. HISTORY: CLL. Shortness of breath and productive cough for 3 months. COMPARISON: 11/14/2023. FINDINGS: Lungs are clear. No pleural effusion, pulmonary edema, or pneumothorax. Normal cardiomediastinal contours. No bony abnormality. IMPRESSION: Normal radiographic appearance of the chest. Dictating Physician: NEERAJ REN MD Electronically Signed by: NEERAJ REN MD Dic Date/Time: 02/15/24906 Sign date/Time: 02/15/24907 Procedure Note Neeraj Ren MD - 02/23/2024 [facility] Diagnostic Imaging Department [address] [place] [address] Patient: RALF COULTER /Age/Sex: 1970 - 53 - M Unit#: [id number] Location/Status: CJIGEN/WAI CLI Mnemonic/Ordering Site: CHESTXR/SPDI Ordering Physician: APARNA DIA PA Chest Routine 2 Views - 02/15/24901 Report Status:Signed PA and lateral views of the chest dated 02/15/2024. HISTORY: CLL. Shortness of breath and productive cough for 3 months. COMPARISON: 11/14/2023. FINDINGS: Lungs are clear. No pleural effusion, pulmonary edema, or pneumothorax. Normal cardiomediastinal contours. No bony abnormality. IMPRESSION: Normal radiographic appearance of the chest. Dictating Physician: NEERAJ REN MD Electronically Signed by: NEERAJ REN MD Dic Date/Time: 02/15/24906 Sign date/Time: 02/15/24907 us Aparna ARCE IMG XR PROCEDURES Final Resul t documented in this encounter Visit Diagnoses Diagnosis Chronic lymphocytic leukemia of B-cell type not having achieved remission (CMS/HCC V24, CMS/HCC V28) documented in this encounter Care Teams Legal Document Specialist Relationship Specialty Start Date End Date Alicia Pillai MD [address] [place] [address] PCP - General Internal Medicine 02/04/15 documented as of this encounter
--- OUTSIDE RECORDS SUMMARY | 2024-02-22 08:59 | XMS_ITS | Encounter Summary ---
Author Organization [facility] [place] [address] Care Team Providers Care In Home Sales Representative Name Role Phone Alicia Pillai MD Primary Care Provider [phone] Encounter Details Date Type Department Care Team (Late st Contact Info) Description 02/22/2024 8:59 AM EDT Hospital Encounter TH HISTORIC ENCOUNTERS EASTERN CONVERSION ONLY Social History Tobacco Use Types Packs/Day Years [...] Progress Notes * Historical, Notes Results - 02/22/2024 9:00 AM EDT 0930 arrives for stat labs and possible blood transfusion. He reports ongoing cough, that was initially better with 40 mg of prednisone, but now the same. Prednisone was initiated on 02/15/24. He is feeling fair, reports working, per usual. He does report increased shortness of breath with exertion. Labs drawn and sent stat. Call blanco in reach, snacks provided. He is taking venetoclax, week #4, dose is 200mg daily, and he starts his weeks on Mondays. 1030 resting, listening to music, labs resulsted and HGB is 7.1, plts 31K, WBC 4.1 , RESULTS reported to Julia ARCE and orders obtained to give one unit of packed red blood cells . Gregory in agreement with plan. 1115 resting, no distress 1215 ate lunch and tolerated well, coughing intermittently, use cough drops 1308 blood transfusion initiated, call blanco in reach 1330 doing well, no complaints tolerating blood transfusion without incident. 1400 no distress 1506 blood fully infused, appoantment scheduled for next week for blood as well as Dr. Wallace in follow up in Dr. Cheung abscence. 1530 discharged to home ambulatory, documented in this encounter Plan of Treatment Upcoming Encounters Date Type Department Care Team (Late st Contact Info) Description 02/13/2025 9:30 AM EDT Appointment [facility] [address] [place] [phone] 04/06/2025 3:30 PM EST Office Visit [facility] Hematology Oncology [address] [place] [phone] Mirian-Mary Baca MD [address] [place] [phone] 04/30/2025 3:30 PM EST Office Visit Adult Medicine - [place] [address] [place] [phone] Cecy Simmons NP [address] [place] [address] documented as of this encounter Visit Diagnoses Not on filedocumented in this encounter Care Teams In Home Sales Representative Relationship Specialty Start Date End Date Alicia Pillai MD [address] [place] [address] PCP - General Internal Medicine 02/04/15 documented as of this encounter
--- OUTSIDE RECORDS SUMMARY | 2025-02-10 18:27 | XMS_ITS ---
Author Organization [facility] Address [address] [place] [address] Phone Care Team Providers Care Peoplesoft Financials Name Role Phone Alicia Pillai MD Primary Care Provider [phone] Active Problems Problem Noted Date Diagnosed Date Transaminitis 07/28/2024 Type II diabetes mellitus ([facility] V24, [facility] V28) 06/10/2024 Hypogammaglobulinemia ([facility] V24) 02/03/2024 Cervical lymphadenopathy 11/14/2023 Low testosterone 03/26/2023 Anemia in neoplastic disease 11/29/2015 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 September 2015: treatment with ibrutinib CLL - Chronic lymphocytic leukemia Herpes zoster 01/22/2012 Overview (03/06/2024): 2011 Psoriasis 05/08/2005 Overview (03/06/2024): Die Cast Patternmaker Edwin Lozano Derm Psoriasis with arthropathy ([facility] V24, [facility] V28) 05/08/2005 Overview (03/06/2024): Initial rx with Celebrex and sulfasalazine; changed to methotrexate by dermatology 06/29; change to Enbrel started 03/01 - stopped 12/03 when CLL detected Current Treatment and Therapy Plans Immune Globulin Intravenous (IGIV) - every 3 weeks* Plan Start Date:11/21/2024 Plan Provider:Emigdio Grajeda MD Linked Problems Chronic lymphocytic leukemia ([facility] V24, [facility] V28)Hypogammaglobulinemia ([facility] V24) Treatment Medications No medications scheduled. Past Treatment and Therapy Plans Additional Therapy Plan Plan Name Start Date Discontinue Date Treatment Medications Discontinue Reason Plan Provider GROWTH FACTOR FILGRASTIM ( GRANIX) 03/14/2024 01/02/2025 No medications scheduled. - Therapy Complete Subramony Subramonia-Vladimir baker MD Hematology Therapy Plan Plan Name Start Date Discontinue Date Treatment Medications Discontinue Reason Plan Provider Immune Globulin Intravenous (IGIV) - every 3 weeks 03/07/2024 11/20/2024 No medications scheduled. - Therapy Complete Subramony Subramurvashi-Vladimir baker MD Transfusion Therapy Plan Plan Name Start Date Discontinue Date Treatment Medications Discontinue Reason Plan Provider OUTPATIENT TRANSFUSION (PRN) & OUTPATIENT TRANSFUSION ( ONCE) 02/29/2024 01/02/2025 No medications scheduled. - Therapy Complete Subramony Matthew baker MD
--- OUTSIDE RECORDS SUMMARY | 2025-02-10 18:28 | XMS_ITS | Clinical Summary ---
Author Organization [facility] Address [address] [place] [address] Care Team Providers Care Reactor Fueling Supervisor Name Role Phone Fernando Pillai MD Primary [...] 87 02/22/2024 3:06 PM EDT Temperature 36.6 C (97.8 F) 02/22/2024 9:00 AM EDT Respiratory Rate 18 02/22/2024 3:06 PM EDT [...] series) 09/23/2020 08/26/2020, 08/05/2020 Influenza Vaccine (#1) 2024 3, 01/05/2022, 04/21/2020, Additional history exists DTap / Tdap / Td (2 - Td or Tdap) 11/15/2028 11/15/2018 RSV Ped < 20 months Aged Out No longe r eligible based on patient's age to complete this topic Care Teams Reactor Fueling Supervisor Relationship Specialty Start Date End Date Fernando Pillai MD PCP - General E Business Specialist 09/16/19
--- OUTSIDE RECORDS SUMMARY | 2025-02-10 18:28 | XMS_ITS | Encounter Summary ---
Author Organization [facility] Address [address] [place] [address] Phone Care Team Providers Care Fiberglass Insulation Installer Name Role Phone Alicia Pillai MD Primary Care Provider [phone] Manny Gandhi MD Unavailable [phone] Manny Gandhi MD Unavailable [phone] Mary Post MD Unavailable [phone] Encounter Details Date Type Department Care Team (Late st Contact Info) Description 01/03/2017 Procedure Pass DF IMG OUTSIDE IMG [address] [place] [address] Social History Tobacco Use Types Packs/Day Years [...] 2:00 PM EST [facility] [place] [address] [place] [address], 2nd [place] [address] Carrie Walsh MD [address] [place] [address] [email or web address] 05/21/2025 3:00 PM EST Office Visit Center for Lymphoma, Division of Hematologic Oncology, [facility] [place] [address] [place] [address], [address] [place] [address] Robbin Treadwell MD [address] [place] [address] [email or web address] documented as of this encounter Visit Diagnoses Not on filedocumented in this encounter Care Teams Fiberglass Insulation Installer Relationship Specialty Start Date End Date Alicia Pillai MD [address] [place] [address] PCP - General Internal Medicine 05/11/15 Manny Gandhi MD [address] [place] [phone] [email or web address] Hematology 07/21/15 02/21/17 Manny Gandhi MD [address] [place] [phone] [email or web address] Referring Physician Hematology 07/22/15 7 Mary Post MD [address] [place] [phone] [email or web address] Primary Oncologist Internal Medicine 02/22/17 documented as of this encounter Additional Source Comments The information contained in this document represents components of the legal health record. It is not the complete legal health record.[facility]
--- OUTSIDE RECORDS SUMMARY | 2025-02-10 18:28 | XMS_ITS | Encounter Summary ---
Author Organization [facility] Address [address] [place] [address] Phone Care Team Providers Care Diesel Engine Fitter Name Role Phone Alicia Pillai MD Primary Care Provider [phone] Manny Gandhi MD Unavailable [phone] Manny Gandhi MD Unavailable [phone] Mary Post MD Unavailable [phone] Encounter Details Date Type Department Care Team (Late st Contact Info) Description 01/03/2017 Procedure Pass DF IMG OUTSIDE IMG [address] [place] [address] Social History Tobacco Use Types Packs/Day Years [...] 2:00 PM EST [facility] [place] [address] [place] [address], 2nd [place] [address] Carrie Walsh MD [address] [place] [phone] [email or web address] 05/21/2025 3:00 PM EST Office Visit Center for Lymphoma, Division of Hematologic Oncology, [facility] [place] [address] [place] [address], [address] [place] [address] Robbin Treadwell MD [address] [place] [address] [email or web address] documented as of this encounter Visit Diagnoses Not on filedocumented in this encounter Care Teams Diesel Engine Fitter Relationship Specialty Start Date End Date Alicia Pillai MD [address] [place] [address] PCP - General Internal Medicine 05/11/15 Manny Gandhi MD [address] [place] [phone] [email or web address] Hematology 07/21/15 02/21/17 Manny Gandhi MD [address] [place] [phone] @[email or web address] Referring Physician Hematology 07/22/15 7 Mary Post MD [address] [place] [phone] [email or web address] Primary Oncologist Internal Medicine 02/22/17 documented as of this encounter Additional Source Comments The information contained in this document represents components of the legal health record. It is not the complete legal health record.[facility]
--- OUTSIDE RECORDS SUMMARY | 2025-02-10 18:28 | XMS_ITS | Clinical Summary ---
Author Organization [facility] Address [address] [place] [address] Phone Care Team Providers Care Magazine Hand Name Role Phone Alicia Pillai MD Primary Care Provider [phone] Mary Post MD Unavailable [phone] Allergies Active Allergy Reactions Criticality Noted Date Comments Amoxicillin Rash Medium 01/21/2013 Medications acyclovir (ZOVIRAX) 400 MG tablet Take 1 tablet (400 mg total) by mouth 3 (three) times a day. 90 tablet 3 1 Active sulfamethoxazole -trimethoprim (BACTRIM,SEPTRA) 400-80 mg per tablet Take 1 tablet (80 mg of trimethoprim total) by mouth daily. 30 tablet 11 2 Active TRULICITY 3 mg/0.5 mL subcutaneous injection INJECT 3MG (0.5ML) INTO THE SKIN ONE TIME PER WEEK 3 Active celecoxib (CELEBREX) 200 MG capsule TAKE 1 CAPSULE EVERY DAY NEEDED FOR PAIN WITH FOOD 3 Active atorvastatin (LIPITOR) 10 MG tablet Take 1 tablet by mouth daily. 2 Active cetirizine (ZYRTEC) 10 MG tablet Take 1 tablet by mouth every morning. 3 Active metFORMIN (GLUCOPHAGE) 1000 MG tablet TAKE 1 TABLET BY MOUTH TWICE A DAY WITH BREAKFAST 3 Active Active Problems Problem Noted Date Diagnosed Date Chronic lymphocytic leukemia 01/21/2013 Overview (2014): CLL - Chronic lymphocytic leukemia Psoriasis with arthropathy 01/21/2013 Overview (2014): Psoriasis with arthropathy Encounters Date Type Department Care Team Description 11/20/2024 4:00 PM EDT Office Visit Center for Lymphoma, Division of Hematologic Oncology, [facility] [place] [address] [place] [address], 7th [place] [address] Robbin Treadwell MD Chronic lymphocytic leukemia (Primary Dx) from Last 3 Months Social History Tobacco Use Types Packs/Day Years Used Date Smoking Tobacco: Unknown Alcohol Use Standard Drinks/Week Comments Not Asked 0 (1 standard drink = 0.6 oz pur e alcohol) Education Answer Date Recorded Are you interested in more education? Not on bala e 08/17/2022 Are you concerned about learning? Not on file 08/17/2022 No 08/17/2022 No 08/17/2022 Digital Access Answer Date Recorded No 09/13/2022 No 09/13/2022 No 09/13/2022 Reliable internet access at home? Not on file 09/13/2022 Device with a working camera? Not on file Sex and Gender Information Value Date Recorded Sex Assigned at Not on file Legal Sex Male 7:47 PM EST Gender Identity Not on file Sexual Orientation Not on file Last Filed Vital Signs Vital Sign Reading Time Taken Comments Blood Pressure 136/76 11/20/2024 3:24 PM EDT Pulse 80 11/20/2024 3:24 PM EDT Temperature 36.3 C (97.3 F) 11/20/2024 3:24 PM EDT Respiratory Rate 16 11/20/2024 3:24 PM EDT Oxygen Saturation 99% 11/20/2024 3:24 PM EDT Inhaled Oxygen Concentration - - Weight 98.1 kg (216 lb 4.3 oz) 11/20/2024 3:24 P M EDT Height 172.3 cm (5' 7.84 ) 11/20/2024 3:24 PM ED T Body Mass Index 33.04 11/20/2024 3:24 PM EDT Plan of Treatment Upcoming Encounters Date Type Department Care Team (Late st Contact Info) Description 05/21/2025 2:00 PM EST Blood Draw Laboratory Services, [address], [address] [place] [address] Carrie Walsh MD [address] [place] [phone] [email or web address] 05/21/2025 3:00 PM EST Office Visit Center for Lymphoma, Division of Hematologic Oncology, [address], [address]th [place] [address] Robbin Treadwell MD [address] [place] [address] [email or web address] Health Maintenance Due Date Last Done Comments DEPRESSION SCREENING 1980 SMOKING Hx and SMOKELESS TOBACCO SCREENING 1981 HEPATITIS C SCREENING 1986 HIV ONE-TIME SCREENING (18-65 YEARS) 1986 ZOSTER VACCINES (1 of 2) 1987 COLOGUARD 2013 COLONOSCOPY 2013 COLORECTAL CANCER SCREENING 2013 FIT TEST 2013 FOBT 2013 SIGMOIDOSCOPY 2013 VIRTUAL COLONOSCOPY 2013 PNEUMOCOCCAL VACCINES (50+ years) (2 of 2 - PCV) 01/02/2015 01/02/2014 INFLUENZA VACCINE (#1) 2024 , 03/26/2023, 01/05/2022, Additional history exists COVID-19 VACCINE (3 - 2024- season) 2024 08/26/2020, 08/05/2020 CREATININE LEVEL 11/20/2025 11/20/2024, , 01/24/2024, Additional history exists SCREENING FOR DIABETES 11/21/2027 11/20/2024 Adult Td,Tdap Booster 11/15/2028 11/15/2018, 005 LIPID PANEL 10/02/2029 10/02/2024, 10/0 11/2023, 11/20/2022, Additional history exists RSV VACCINE (1 - 1-dose 75+ series) 2043 HEPATITIS A VACCINES Aged Out No long er eligible based on patient's age to complete this topic HIB VACCINES Aged Out No longer eligi ble based on patient's age to complete this topic MENINGOCOCCAL VACCINES (ACWY) Aged Out No longer eligible based on patient's age to complete this topic MENINGOCOCCAL VACCINES (B) Aged Out N o longer eligible based on patient's age to complete this topic Medical Devices Not on file Procedures Procedure Name Priority Date/Time Associated Diagnosis Comments LDH Routine 11/20/2024 2:54 PM EDT Chronic lymphocytic leukemia COMPREHENSIVE METABOLIC PANEL Routine 11/20/2024 2:54 PM EDT Chronic lymphocytic leukemia HC BLOOD COUNT COMPLETE AUTO&AUTO DIFRNTL WBC Routine 11/20/2024 2:54 PM EDT Chronic lymphocytic leukemia from Last 3 Months Results * LDH (11/20/2024 2:54 PM EDT) LDH 181 135 - 225 U/L [facility] LIC# [id number] Blood 11/20/2024 2:54 PM EDT 11/20/2024 3:05 PM EDT us Robbin Treadwell MD LAB BLOOD ORDERABLES Final R esult [facility] LIC# [id number] [address] [place] [address] * (ABNORMAL) Comprehensive metabolic panel (11/20/2024 2:54 PM EDT) SODIUM 143 136 - 145 mmol/L [facility] LIC# [id number] POTASSIUM 3.9 3.4 - 5.1 mmol/L [facility] LIC# [id number] CHLORIDE 105 98 - 107 mmol/L [facility] LIC# [id number] CO2 26 22 - 31 mmol/L [facility] LIC# [id number] BUN 14 6 - 23 mg/dL [facility] LIC# [id number] CREATININE 1.13 0.50 - 1.20 mg/dL [facility] LIC# [id number] GLUCOSE 108(H) 70 - 100 mg/dL [facility] LIC# [id number] ALBUMIN 4.6 3.5 - 5.2 g/dL [facility] LIC# [id number] TOTAL PROTEIN 6.7 6.4 - 8.3 g/dL [facility] LIC# [id number] CALCIUM 9.5 8.8 - 10.7 mg/dL [facility] LIC# [id number] ALKALINE PHOSPHATASE 94 40 - 129 U/L [facility] LIC# [id number] TOTAL BILIRUBIN 0.4 0.2 - 1.2 mg/dL [facility] LIC# [id number] AST 26 <41 U/L [facility] LIC# [id number] ALT 59(H) <42 U/L [facility] LIC# [id number] GLOBULIN 2.1(L) 2.3 - 4.2 g/dL [facility] LIC# [id number] EGFR 76 >59 mL/min/1.7 3m2 [facility] LIC# [id number] Comment:Estimated glomerular filtration rate calculated using the CKD-EPI refit equation. ANION GAP 12 7 - 17 mmol/L [facility] LIC# [id number] Blood 11/20/2024 2:54 PM EDT 11/20/2024 3:05 PM EDT us Robbin Treadwell MD LAB BLOOD ORDERABLES Final R esult [facility] LIC# [id number] [address] [place] [address] * (ABNORMAL) CBC and differential (11/20/2024 2:54 PM EDT) WBC 7.76 4.00 - 10.00 K/uL [facility] LIC# [id number] RBC 4.48(L) 4.50 - 6.40 M/uL [facility] LIC# [id number] HGB 14.9 13.5 - 18.0 g/dL [facility] LIC# [id number] HCT 42.5 40.0 - 54.0 % [facility] LIC# [id number] PLT 142(L) 150 - 450 K/uL [facility] LIC# [id number] MCV 94.9 80.0 - 100.0 fL [facility] LIC# [id number] MCH 33.3(H) 27.0 - 32.0 pg [facility] LIC# [id number] MCHC 35.1 32.0 - 36.0 g/dL [facility] LIC# [id number] RDW 13.2 11.5 - 14.5 % [facility] LIC# [id number] MPV 9.6 8.4 - 12.0 fL [facility] LIC# [id number] NRBC 0.00 0 /100 WBCs [facility] LIC# [id number] ABSOLUTE NRBC 0.00 0 K/uL [facility] LIC# [id number] DIFF METHOD Auto [facility] LIC# [id number] NEUTS 45.9(L) 48.0 - 76.0 % [facility] LIC# [id number] LYMPHS 42.1(H) 18.0 - 41.0 % [facility] LIC# [id number] MONOS 11.5(H) 4.0 - 11.0 % [facility] LIC# [id number] EOS 0.0 0.0 - 5.0 % [facility] LIC# [id number] BASOS 0.1 0.0 - 1.5 % [facility] LIC# [id number] % IMMATURE GRANS 0.4 0.0 - 1.0 % [facility] LIC# [id number] ABSOLUTE NEUTS 3.56 1.92 - 7.60 K/uL [facility] LIC# [id number] ABSOLUTE LYMPHS 3.27 0.72 - 4.10 K/uL [facility] LIC# [id number] ABSOLUTE MONOS 0.89 0.16 - 1.10 K/uL [facility] LIC# [id number] ABSOLUTE EOS 0.00 0.00 - 0.50 K/uL [facility] LIC# [id number] ABSOLUTE BASOS 0.01 0.00 - 0.15 K/uL [facility] LIC# [id number] ABS IMMATURE GRANS 0.03 0.00 - 0.10 K/uL [facility] LIC# [id number] Blood 11/20/2024 2:54 PM EDT 11/20/2024 3:05 PM EDT Robbin Treadwell MD LAB BLOOD ORDERABLES Final R esult [facility] LIC# [id number] [address] [place] [address] from Last 3 Months Insurance [facility] [address] [address] [place] [address] [facility] [address] [address] [place] [address] [place] [address] [facility] Advance Directives For more information, please contact: [phone] (9AM - 5PM [facility], Sunday-Sunday) Documents on File Type Date Recorded Patient Nanotechnology Engineering Technician Expl anation Advance Directive - Non Epic LMR 01/21/2013 12:00 AM Care Teams Magazine Hand Relationship Specialty Start Date End Date Alicia Pillai MD [address] [place] [address] PCP - General Internal Medicine 05/11/15 Mary Post MD [address] [place] [phone] [email or web address] Primary Oncologist Internal Medicine 02/22/17 Additional Source Comments The information contained in this document represents components of the legal health record. It is not the complete legal health record.[facility]
--- OUTSIDE RECORDS SUMMARY | 2025-02-10 18:28 | XMS_ITS | Encounter Summary ---
Author Organization [facility] Address [address] [place] [address] Phone Care Team Providers Care Geodetic Surveyor Name Role Phone Alicia Pillai MD Primary Care Provider [phone] Manny Gandhi MD Unavailable [phone] Manny Gandhi MD Unavailable [phone] Mary Post MD Unavailable [phone] Encounter Details Date Type Department Care Team (Late st Contact Info) Description 01/03/2017 Procedure Pass DF IMG OUTSIDE IMG [address] [place] [address] Social History Tobacco Use Types Packs/Day Years [...] 2:00 PM EST Blood Draw [facility], [facility] [address] [place] [address], [address] [place] [address] Carrie Walsh MD [address] [place] [id number] [email or web address] 05/21/2025 3:00 PM EST Office Visit [facility], Division of Hematologic Oncology, [facility] [address] [place] [address], [address] [place] [address] Robbin Treadwell MD [address] [place] [id number] [email or web address] documented as of this encounter Visit Diagnoses Not on filedocumented in this encounter Care Teams Geodetic Surveyor Relationship Specialty Start Date End Date Alicia Pillai MD [address] [place] [id number] PCP - General Internal Medicine 05/11/15 Manny Gandhi MD [address] [place] [id number] [email or web address] Hematology 07/21/15 02/21/17 Manny Gandhi MD [address] [place] [phone] [email or web address] Referring Physician Hematology 07/22/15 7 Mary Post MD [address] [place] [phone] [email or web address] Primary Oncologist Internal Medicine 02/22/17 documented as of this encounter Additional Source Comments The information contained in this document represents components of the legal health record. It is not the complete legal health record.[facility]
--- OUTSIDE RECORDS SUMMARY | 2025-02-10 18:28 | XMS_ITS | Clinical Summary ---
Author Organization [facility] Address [address] [place] [address] Phone Care Team Providers Care Automated Equipment Engineer Technician Name Role Phone Alicia Pillai MD Primary Care Provider [phone] Allergies Active Allergy Reactions Criticality Noted Date Comments Amoxicillin Rash Medium 05/22/2010 Other Reaction(s): Rash/Dermatitis Moxifloxacin Nausea And Vomiting 10/12/2014 Other Reaction(s): OTHER Pt reports dizzyness, lightheadedness, passing out. Pt reports dizzyness, lightheadedness, passing out. Medications calcipotriene-beta methasone 0.005-0.064 % foam Apply 1 Application topically 1 (one) time each day. 02/20/20 18 Active celecoxib (CeleBREX) 200 mg capsule TAKE 1 CAPSULE EVERY DAY NEEDED FOR PAIN WITH FOOD 02/20/20 19 Active LORazepam (ATIVAN) 0.5 mg tablet Take 1 tablet (0.5 mg total) by mouth every 6 hours as needed. 12/10/19 24 Active omeprazole (PriLOSEC) [address] capsule Take 1 capsule (20 mg total) by mouth 1 (one) time each day. 11/09/19 24 Active predniSONE (DELTASONE) 20 mg tablet Take 1 tablet (20 mg total) by mouth. 10/03/19 24 Active venetoclax (VENCLEXTA) 10 mg-50 mg- 100 mg Week 1 - Take 20 mg po once daily. Week 2 - Take 50 mg po once daily Week 3 - Take 100 mg po once daily Week 4 - Take 200 mg po once daily. Week 5 - Take 400 mg po once daily. 01/25/20 24 Active ipratropium (ATROVENT) 42 mcg (0.06 %) nasal spray SPRAY 2 SPRAYS BY NASAL ROUTE 4 TIMES DAILY. 45 mL 04/08/20 24 Active Venclexta 100 mg tablet TAKE 4 TABLETS (400 MG) BY MOUTH ONCE DAILY. TAKE WITH A MEAL AND WATER. 120 tablet 5 04/21/20 24 Active allopurinoL (ZYLOPRIM) 300 mg tablet TAKE 1 TABLET BY MOUTH EVERY DAY 90 tablet 04/30/19 25 Active atorvastatin (LIPITOR) 10 mg tabletIndications: Hyperlipidemia, unspecified hyperlipidemia type Take 1 tablet (10 mg total) by mouth 1 (one) time each day. 90 tablet 1 10/07/19 25 Active albuterol HFA (PROAIR HFA ; PROVENTIL HFA ; VENTOLIN HFA) 90 mcg/actuation inhaler INHALE 2 PUFFS INTO THE LUNGS EVERY 6 HOURS NEEDED FOR COUGH, WHEEZING OR SHORTNESS OF BREATH. 25.5 g 1 10/11/19 25 Active sulfamethoxazole-t rimethoprim (BACTRIM,SEPTRA) 400-80 mg per tablet TAKE 1 TABLET BY MOUTH EVERY DAY 30 tablet 5 11/11/19 25 Active Trulicity 3 mg/0.5 mL pen injector injectionIndicatio ns:Type 2 diabetes mellitus without complication, without long-term current use of insulin ([facility] V24, [facility] V28) INJECT 0.5 ML (3 MG) SUBCUTANEOUSLY EVERY 7 DAYS 6 mL 1 11/25/19 25 Active metFORMIN (GLUCOPHAGE) 1,000 mg tablet Take 1 tablet (1,000 mg total) by mouth 2 (two) times a day. 180 tablet 1 12/02/19 25 Active venetoclax (Venclexta) 100 mg tabletIndications: chronic lymphocytic leukemia Take 4 tablets (400 mg total) by mouth 1 (one) time each day Take with a meal and water at approximately the same time each day. Swallow whole; do not crush, chew, or break. 120 tablet 5 12/10/19 25 Active acyclovir (ZOVIRAX) 400 mg tablet TAKE 1 TABLET BY MOUTH THREE TIMES A DAY 270 tablet 1 12/13/19 25 Active FreeStyle Inga 3 Plus Sensor deviceIndications: Type 2 diabetes mellitus without complication, unspecified whether skilled nursing insulin use CHANGE SENSOR EVERY 14 DAYS 12 each 1 01/06/20 25 Active Active Problems Problem Noted Date Diagnosed Date Transaminitis 07/28/2024 Type II diabetes mellitus ([facility] V24, [facility] V28) 06/10/2024 Hypogammaglobulinemia ([facility] V24) 02/03/2024 Cervical lymphadenopathy 11/14/2023 Low testosterone 03/26/2023 Anemia in neoplastic disease 11/29/2015 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 September 2015: treatment with ibrutinib CLL - Chronic lymphocytic leukemia Herpes zoster 01/22/2012 Overview (03/06/2024): 2011 Psoriasis 05/08/2005 Overview (03/06/2024): Document Management Analyst Edwin Lozano Derm Psoriasis with arthropathy ([facility] V24, [facility] V28) 05/08/2005 Overview (03/06/2024): Initial rx with Celebrex and sulfasalazine; changed to methotrexate by dermatology 06/29; change to Enbrel started 03/01 - stopped 12/03 when CLL detected Encounters Date Type Department Care Team Description 01/23/2025 9:30 AM EDT - 01/23/2025 11:59 PM EDT Hospital Encounter [facility] [address] [place] [address] 2[address] [place] [phone] Mary Montgomery MD Anemia in neoplastic disease (Primary Dx); Chronic lymphocytic leukemia ([facility] V24, [facility] V28); Hypogammaglobulinemia ([facility] V24); Transfusion-dependent anemia Discharge Disposition: Home or Self Care 01/02/2025 8:58 AM EDT - 01/02/2025 11:59 PM EDT Hospital Encounter [facility] [address] [place] [phone] Mary Montgomery MD Hypogammaglobulinemia ([facility] V24) (Primary Dx); Chronic lymphocytic leukemia ([facility] V24, [facility] V28); Psoriasis with arthropathy ([facility] V24, [facility] V28) Discharge Disposition: Home or Self Care 01/02/2025 8:30 AM EDT Office Visit [facility] Hematology Oncology [address] [place] [phone] Mary Montgomery MD Chronic lymphocytic leukemia ([facility] V24, [facility] V28) (Primary Dx); Psoriasis with arthropathy ([facility] V24, [facility] V28); Hypogammaglobulinemia ([facility] V24); Anemia in neoplastic disease; 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; Hereditary hemochromatosis ([facility] V24); Elevated ferritin 12/30/[address] [facility] Hematology Oncology [address] [place] [phone] Mary Montgomery MD 12/12/2024 9:28 AM EDT - 12/12/2024 11:59 PM EDT Hospital Encounter [facility] [address] [place] [phone] Emigdio Grajeda MD Hypogammaglobulinemia ([facility] V24) (Primary Dx); Chronic lymphocytic leukemia ([facility] V24, [facility] V28); Anemia in neoplastic disease Discharge Disposition: Home or Self Care 11/28/[address] [facility] Hematology Oncology [address] [place] [phone] Kassandra Cortez MA 11/21/2024 8:48 AM EDT - 11/21/2024 11:59 PM EDT Hospital Encounter [facility] [address] [place] [phone] Mary Montgomery MD Chronic lymphocytic leukemia [facility] V28) (Primary Dx); Hypogammaglobulinemia ([facility] V24); Transfusion-dependent anemia Discharge Disposition: Home or Self Care from Last 3 Months Immunizations Immunization Administration Dates Next Due Pfizer SARS-CoV-2 COVID-19, mRNA, LNP-S, preservative free 08/26/2020,08/05/2020 Medical History Medical History Date Comments Hypogammaglobulinemia ([facility] V24) 02/03/2024 Social History Tobacco Use Types [...] Sign Reading Time Taken Comments Blood Pressure 138/87 01/23/2025 9:39 AM EDT Pulse 71 01/23/2025 9:39 AM EDT Temperature 36.6 C (97.8 F) 01/23/2025 9:39 AM EDT Respiratory Rate 18 01/23/2025 9:39 AM EDT Oxygen Saturation 100% 01/23/2025 9:39 AM EDT Inhaled Oxygen Concentration - - Weight 97.8 kg (215 lb 9.8 oz) 01/23/2025 9:39 A M EDT Height 172.7 cm (5' 8 ) 01/02/2025 8:36 AM EDT Body Mass Index 32.78 01/02/2025 8:36 AM EDT Plan of Treatment Upcoming Encounters Date Type Department Care Team (Late st Contact Info) Description 02/13/2025 9:[address] [facility] [address] [place] [phone] 04/06/2025 3:30 PM EST Office Visit [facility] Hematology Oncology [address] [place] [phone] Mary Post MD [address] [place] [phone] 04/30/2025 3:30 PM EST Office Visit Adult Medicine - [place] [address] [place] [phone] Cecy Simmons NP [address] [place] [address] Health Maintenance Due Date Last Done Comments Colorectal Cancer Screening: Colonoscopy 1968 Diabetes: Annual Foot Exam 1978 Diabetes: Annual Retina Eye Exam 1978 Hepatitis B Vaccines (1 of 3 - 19+ 3-dose series) 1987 Zoster Vaccines (1 of 2) 1987 Pneumococcal Vaccine: 50+ Years (2 of 2 - PCV) 01/02/2015 01/02/2014 RSV Immunization Adult Patients (1 - Risk 50-74 years 1-dose series) 2018 COVID-19 Vaccine (3 - Pfizer risk series) 09/23/2020 08/26/2020, 08/05/2020 HIV Screening 03/31/2022 Hepatitis C Screening 03/31/2022 Social Influencers of Health Screening 03/31/2022 Depression Screening 04/23/2024 Influenza Vaccine (#1) 2024 , 01/05/2022, 04/24/2021, Additional history exists Diabetes: Blood Sugar Control Test (HGBA1C) 04/03/2025 10/02/2024, 11/28/2023 Diabetes: Annual Urine Albumin-Creatinine Ratio (uACR) 10/02/2025 10/02/2024 Diabetes: Annual GFR (Glomerular Filtration Rate) 01/23/2026 01/23/2025, 01/02/2025, 12/12/2024, Additional history exists DTaP,Tdap,and Td Vaccines (3 [...] Diagnosis Comments CBC WITH AUTO DIFFERENTIAL STAT 01/23/2025 10:10 AM EDT Chronic lymphocytic leukemia ([facility] V24, [facility]/HCC V28) Hypogammaglobulinem ia ([facility] V24) Anemia in neoplastic disease Transfusion-depende nt anemia CBC AND DIFFERENTIAL STAT 01/23/2025 10:10 AM EDT Chronic lymphocytic leukemia ([facility]/HCC V24, CMS/HCC V28) Hypogammaglobulinem ia (CMS/HCC V24) Anemia in neoplastic disease Transfusion-depende nt anemia LACTATE DEHYDROGENASE STAT 01/23/2025 10:10 AM EDT Chronic lymphocytic leukemia (CMS/HCC V24, CMS/HCC V28) Hypogammaglobulinem ia (CMS/HCC V24) Anemia in neoplastic disease Transfusion-depende nt anemia COMPREHENSIVE METABOLIC PANEL STAT 01/23/2025 10:10 AM EDT Chronic lymphocytic leukemia (CMS/HCC V24, CMS/HCC V28) Hypogammaglobulinem ia (CMS/HCC V24) Anemia in neoplastic disease Transfusion-depende nt anemia FERRITIN Routine 01/23/2025 10:10 AM EDT Chronic lymphocytic leukemia (CMS/HCC V24, CMS/HCC V28) Hypogammaglobulinem ia (CMS/HCC V24) IMMUNOGLOBULIN IGG Routine 01/23/2025 10 :10 AM EDT Chronic lymphocytic leukemia ([facility] V24, [facility] V28) Hypogammaglobulinem ia ([facility] V24) TYPE AND SCREEN STAT 01/23/2025 10:10 AM EDT Chronic lymphocytic leukemia ([facility]/H[facility] V24, [facility] V28) C-REACTIVE PROTEIN Routine 01/02/2025 10 :30 AM EDT Psoriasis with arthropathy ([facility] V24, [facility] V28) IRON AND TIBC Routine 01/02/2025 10:30 AM EDT Chronic lymphocytic leukemia ([facility] V24, [facility] V28) FERRITIN Routine 01/02/2025 10:30 AM EDT Chronic lymphocytic leukemia ([facility] V24, [facility] V28) URIC ACID Routine 01/02/2025 10:30 AM EDT Chronic lymphocytic leukemia ([facility] V24, [facility] V28) CBC WITH AUTO DIFFERENTIAL STAT 01/02/2025 9:49 AM EDT Chronic lymphocytic leukemia ([facility] V24, [facility] V28) LACTATE DEHYDROGENASE STAT 01/02/2025 9:49 AM EDT Chronic lymphocytic leukemia ([facility] V24, [facility] V28) URIC ACID STAT 01/02/2025 9:49 AM EDT Chronic lymphocytic leukemia ([facility] V24, [facility] V28) COMPREHENSIVE METABOLIC PANEL STAT 01/02/2025 9:49 AM EDT Chronic lymphocytic leukemia ([facility] V24, [facility] V28) TYPE AND SCREEN STAT 01/02/2025 9:49 AM EDT Chronic lymphocytic leukemia ([facility] V24, [facility] V28) CBC AND DIFFERENTIAL STAT 01/02/2025 9:49 AM EDT Chronic lymphocytic leukemia (CMS/HCC V24, CMS/HCC V28) CBC WITH AUTO DIFFERENTIAL STAT 12/12/2024 9:49 AM EDT Chronic lymphocytic leukemia (CMS/HCC V24, CMS/HCC V28) C-REACTIVE PROTEIN Routine 12/12/2024 9: 49 AM EDT Chronic lymphocytic leukemia (CMS/HCC V24, CMS/HCC V28) LACTATE DEHYDROGENASE STAT 12/12/2024 9:49 AM EDT Chronic lymphocytic leukemia (CMS/HCC V24, CMS/HCC V28) URIC ACID STAT 12/12/2024 9:49 AM EDT Chronic lymphocytic leukemia (CMS/HCC V24, CMS/HCC V28) COMPREHENSIVE METABOLIC PANEL STAT 12/12/2024 9:49 AM EDT Chronic lymphocytic leukemia (CMS/HCC V24, CMS/HCC V28) CBC AND DIFFERENTIAL STAT 12/12/2024 9:49 AM EDT Chronic lymphocytic leukemia (CMS/HCC V24, CMS/HCC V28) IRON AND TIBC Routine 12/12/2024 9:49 AM EDT Anemia in neoplastic disease FERRITIN Routine 12/12/2024 9:49 AM EDT Anemia in neoplastic disease IRON AND TIBC Routine 11/21/2024 10:22 AM EDT Chronic lymphocytic leukemia (CMS/HCC V24, CMS/HCC V28) Hypogammaglobulinem ia (CMS/HCC V24) Transfusion-depende nt anemia FERRITIN Routine 11/21/2024 10:22 AM EDT Chronic lymphocytic leukemia (CMS/HCC V24, CMS/HCC V28) Hypogammaglobulinem ia (CMS/HCC V24) Transfusion-depende nt anemia C-REACTIVE PROTEIN Routine 11/21/2024 10 :22 AM EDT Chronic lymphocytic leukemia ([facility] V24, [facility] V28) Hypogammaglobulinem ia ([facility] V24) Transfusion-depende nt anemia URIC ACID STAT 11/21/2024 10:22 AM EDT Chronic lymphocytic leukemia ([facility] V24, [facility] V28) MICROALBUMIN CREATININE URINE RATIO Routine 10/02/2024 11:10 AM EDT Type 2 diabetes mellitus without complication, without long-term current use of insulin ([facility] V24, [facility] V28) HEMOGLOBIN A1C Routine 10/02/2024 9:14 AM EDT Type 2 diabetes mellitus without complication, without long-term current use of insulin ([facility] V24, [facility] V28) LIPID PANEL WITH REFLEX TO DIRECT LDL Routine 10/02/2024 9:14 AM EDT Diabetes mellitus ([facility] V24, [facility] V28) from Last 3 Months or Most Recently Relevant to Health Maintenance Results * (ABNORMAL) CBC auto differential (01/23/2025 10:10 AM EDT) Only the most recent of3 resultswithin the time period is included. WBC 4.4(L) 4.8 - 10.8 K/mcL LAB HEMETOLOGY METHOD 01/23/2025 10:43 AM [facility] RBC 4.40(L) 4.50 - 5.50 M/mcL LAB HEMETOLOGY METHOD 01/23/2025 10:43 AM [facility] Hemoglobin 14.6 13.5 - 17.5 g/dL LAB HEMETOLOGY METHOD 01/23/2025 10:43 AM [facility] Hematocrit 41.5(L) 42.0 - 54.0 % LAB HEMETOLOGY METHOD 01/23/2025 10:43 AM [facility] MCV 93.9 79.0 - 98.0 FL LAB HEMETOLOGY METHOD 01/23/2025 10:43 AM [facility] MCH 33.0(H) 27.0 - 32.0 pcg LAB HEMETOLOGY METHOD 01/23/2025 10:43 AM [facility] MCHC 35.2 32.0 - 37.0 g/dL LAB HEMETOLOGY METHOD 01/23/2025 10:43 AM [facility] RDW 13.1 11.0 - 15.0 % LAB HEMETOLOGY METHOD 01/23/2025 10:43 AM [facility] Platelets 137 130 - 400 K/mcL LAB HEMETOLOGY METHOD 01/23/2025 10:43 AM [facility] MPV 9.9 7.0 - 11.0 FL LAB HEMETOLOGY METHOD 01/23/2025 10:43 AM [facility] NRBC 0.0 <1.0 % LAB HEMETOLOGY METHOD 01/23/2025 10:43 AM [facility] NRBC Absolute 0.00 <0.10 K/mcL LAB HEMETOLOGY METHOD 01/23/2025 10:43 AM [facility] Neutrophils Relative 36.9 % LAB HEMETOLOGY METHOD 01/23/2025 10:43 AM [facility] Lymphocytes Relative 50.7 % LAB HEMETOLOGY METHOD 01/23/2025 10:43 AM [facility] Monocytes Relative 11.7 % LAB HEMETOLOGY METHOD 01/23/2025 10:43 AM [facility] Eosinophils Relative 0.0 % LAB HEMETOLOGY METHOD 01/23/2025 10:43 AM [facility] Basophils Relative 0.2 % LAB HEMETOLOGY METHOD 01/23/2025 10:43 AM [facility] Immature Granulocytes Relative 0.5 % LAB HEMETOLOGY METHOD 01/23/2025 10:43 AM EDT [facility] Neutrophils Absolute 1.64 1.50 - 7.00 K/[facility] LAB HEMETOLOGY METHOD 01/23/2025 10:43 AM EDT [facility] Lymphocytes Absolute 2.25 1.00 - 5.00 K/mcL LAB HEMETOLOGY METHOD 01/23/2025 10:43 AM EDT [facility] Monocytes Absolute 0.52 0.20 - 1.00 K/mcL LAB HEMETOLOGY METHOD 01/23/2025 10:43 AM EDT [facility] Eosinophils Absolute 0.00 0.00 - 0.50 K/[facility] LAB HEMETOLOGY METHOD 01/23/2025 10:43 AM EDT [facility] Basophils Absolute 0.01 0.00 - 0.20 K/mcL LAB HEMETOLOGY METHOD 01/23/2025 10:43 AM EDT [facility] Immature Granulocytes Absolute 0.02 0.00 - 0.03 K/mcL LAB HEMETOLOGY METHOD 01/23/2025 10:43 AM EDT [facility] Blood Venous blood specimen / Unknown Venipuncture / Unknown 01/23/2025 10:10 AM EDT 01/23/2025 10:20 AM EDT us Subramalfonso Post MD LAB BLOOD ORDERABLE S Final Result [facility] [address] [place] [address], * Type and screen (01/23/2025 10:10 AM EDT) Only the most recent of2 resultswithin the time period is included. ABO Group A 01/23/2025 11:17 AM EDT [facility] Rh Type Positive 01/23/2025 11:17 AM EDT [facility] Antibody Screen Negative 01/23/2025 11:17 AM EDT [facility] Blood Venous blood specimen / Unknown Venipuncture / Unknown 01/23/2025 10:10 AM EDT 01/23/2025 10:20 AM EDT us Mary Post MD LAB BLOOD BANK TEST ORDERABLES Final Result Performing Organization Address [facility]/ZIP Co de Phone Number [facility] [address] [place] [address], [place] [phone] * Lactate dehydrogenase (01/23/2025 10:10 AM EDT) Only the most recent of3 resultswithin the time period is included. LDH 140 120 - 246 unit/L LAB CHEMISTRY METHOD 01/23/2025 10:50 AM EDT [facility] Blood Venous blood specimen / Unknown Venipuncture / Unknown 01/23/2025 10:10 AM EDT 01/23/2025 10:20 AM EDT Result Nate Post MD LAB BLOOD ORDERABLE S Final Result Performing Organization Address [facility]/ZIP La de Phone Number [facility] [address] [place] [address], [place] [phone] * Immunoglobulin IgG (01/23/2025 10:10 AM EDT) Total IgG 814 549 - 1,584 mg/dL LAB CHEMISTRY METHOD 01/23/2025 10:51 AM EDT [facility] Blood Venous blood specimen / Unknown Venipuncture / Unknown 01/23/2025 10:10 AM EDT 01/23/2025 10:20 AM EDT us Mayr Post MD LAB BLOOD ORDERABLE S Final Result Performing Organization Address [facility]/ZIP Co de Phone Number [facility] [address] [place] [address], [place] [phone] * (ABNORMAL) Ferritin (01/23/2025 10:10 AM EDT) Only the most recent of4 resultswithin the time period is included. Pathologist [facility] Ferritin 916(H) 26 - 388 ng/mL LAB CHEMISTRY METHOD 01/23/2025 10:51 AM EDT [facility] Blood Venous blood specimen / Unknown Venipuncture / Unknown 01/23/2025 10:10 AM EDT 01/23/2025 10:20 AM EDT us Mary Post MD LAB BLOOD ORDERABLE S Final Result Performing Organization Address [facility]/ZIP Co de Phone Number [facility] [address] [place] [address], [place] [phone] * (ABNORMAL) Comprehensive metabolic panel (01/23/2025 10:10 AM EDT) Only the most recent of3 resultswithin the time period is included. [facility] Sodium 140 133 - 145 mmol/L LAB CHEMISTRY METHOD 01/23/2025 10:50 AM EDT [facility] Potassium 4.0 3.5 - 5.5 mmol/L LAB CHEMISTRY METHOD 01/23/2025 10:50 AM EDT [facility] Chloride 106 96 - 110 mmol/L LAB CHEMISTRY METHOD 01/23/2025 10:50 AM EDT [facility] CO2 27 21 - 32 mmol/L LAB CHEMISTRY METHOD 01/23/2025 10:50 AM EDT [facility] Anion Gap 7 3 - 11 LAB CHEMISTRY METHOD 01/23/2025 10:50 AM EDT [facility] Glucose 137(H) 70 - 100 mg/dL LAB CHEMISTRY METHOD 01/23/2025 10:50 AM [facility] BUN 12 5 - 25 mg/dL LAB CHEMISTRY METHOD 01/23/2025 10:50 AM [facility] Creatinine 0.79 0.70 - 1.30 mg/dL LAB CHEMISTRY METHOD 01/23/2025 10:50 AM [facility] eGFR 104 >=60 mL/min/1. 73m2 LAB CHEMISTRY METHOD 01/23/2025 10:50 AM [facility] Comment:Calculation based on the Chronic Kidney Disease Epidemiology Collaboration (CKD-EPI) equation refit without adjustment for race. BUN/Creatinine Ratio 15.2 LAB CHEMISTRY METHOD 01/23/2025 10:50 AM [facility] Calcium 8.8 8.5 - 10.5 mg/dL LAB CHEMISTRY METHOD 01/23/2025 10:50 AM [facility] AST (SGOT) 25 10 - 42 unit/L LAB CHEMISTRY METHOD 01/23/2025 10:50 AM [facility] ALT (SGPT) 73(H) 10 - 60 unit/L LAB CHEMISTRY METHOD 01/23/2025 10:50 AM [facility] Alkaline Phosphatase 94 42 - 121 unit/L LAB CHEMISTRY METHOD 01/23/2025 10:50 AM [facility] Total Protein 6.5 6.0 - 8.0 g/dL LAB CHEMISTRY METHOD 01/23/2025 10:50 AM [facility] Albumin 4.0 3.2 - 5.0 g/dL LAB CHEMISTRY METHOD 01/23/2025 10:50 AM [facility] Total Bilirubin 0.6 0.0 - 1.4 mg/dL LAB CHEMISTRY METHOD 01/23/2025 10:50 AM [facility] Blood Venous blood specimen / Unknown Venipuncture / Unknown 01/23/2025 10:10 AM EDT 01/23/2025 10:20 AM EDT us Mary Post MD LAB BLOOD ORDERABLE S Final Result Performing Organization Address City/[facility]/ZIP Co de Phone Number [facility] [address] [place] [address], [place] [phone] * Iron and TIBC (01/02/2025 10:30 AM EDT) Only the most recent of3 resultswithin the time period is included. Iron 108 50 - 160 mcg/dL LAB CHEMISTRY METHOD 01/02/2025 11:11 AM EDT [facility] TIBC 295 250 - 450 mcg/dL LAB CHEMISTRY METHOD 01/02/2025 11:11 AM EDT [facility] Iron Saturation 37 20 - 50 % LAB CHEMISTRY METHOD 01/02/2025 11:11 AM EDT [facility] Blood Venous blood specimen / Unknown Venipuncture / Unknown 01/02/2025 10:30 AM EDT 01/02/2025 10:36 AM EDT us Mary Post MD LAB BLOOD ORDERABLE S Final Result Performing Organization Address [facility] de Phone Number [facility] [address] [place] [address], [place] [phone] * C-reactive protein (01/02/2025 10:30 AM EDT) Only the most recent of3 resultswithin the time period is included. C-Reactive Protein <0.29 <=0.50 mg/dL LAB CHEMISTRY METHOD 01/02/2025 11:11 AM EDT [facility] Blood Venous blood specimen / Unknown Venipuncture / Unknown 01/02/2025 10:30 AM EDT 01/02/2025 10:36 AM EDT us Subramony Subramonia-Keven MD LAB BLOOD ORDERABLE S Final Result Performing Organization Address [facility] de Phone Number [facility] [address] [place] [address], [place] [phone] * Uric acid (01/02/2025 10:30 AM EDT) Only the most recent of4 resultswithin the time period is included. Uric Acid 4.6 3.7 - 9.2 mg/dL LAB CHEMISTRY METHOD 01/02/2025 11:11 AM EDT [facility] Blood Venous blood specimen / Unknown Venipuncture / Unknown 01/02/2025 10:30 AM EDT 01/02/2025 10:36 AM EDT Mary Post MD LAB BLOOD ORDERABLE S Final Result Performing Organization Address [facility] de Phone Number [facility] [address] [place] [address], [place] [phone] * Microalbumin creatinine urine ratio (10/02/2024 11:10 AM EDT) Creatinine, Urine 124.0 mg/dL LAB CHEMISTRY METHOD 10/02/2024 4:27 PM EDT [facility] Microalb, Ur 8.1 0.0 - 29.0 mg/L LAB CHEMISTRY METHOD 10/02/2024 4:27 PM EDT [facility] Microalb/Creat Ratio 7 <30 mg/g creat LAB CHEMISTRY METHOD 10/02/2024 4:27 PM EDT [facility] Urine Urine specimen obtained by clean catch procedure / Unknown Non-blood Collection / Unknown 10/02/2024 11:10 AM EDT 10/02/2024 11:11 AM EDT Katt ARCE LAB URINE ORDERABLES Final Resul t Performing Organization Address [facility] de Phone Number [facility] [address] [place] [address], [place] [phone] * (ABNORMAL) Lipid panel with reflex to direct LDL (10/02/2024 9:14 AM EDT) Cholesterol 154 0 - 200 mg/dL LAB CHEMISTRY METHOD 10/02/2024 12:37 PM EDT [facility] Triglycerides 334(H) 0 - 150 mg/dL LAB CHEMISTRY METHOD 10/02/2024 12:37 PM EDT [facility] HDL 32(L) >=40 mg/dL LAB CHEMISTRY METHOD 10/02/2024 12:37 PM EDT [facility] LDL Calculated 55 0 - 100 mg/dL LAB CHEMISTRY METHOD 10/02/2024 12:37 PM EDT [facility] VLDL Cholesterol Manuel 66.8 mg/dL LAB CHEMISTRY METHOD 10/02/2024 12:37 PM EDT [facility] Non HDL Chol. (LDL+VLDL) 122 <145 mg/dL LAB CHEMISTRY METHOD 10/02/2024 12:37 PM EDT [facility] Chol/HDL Ratio 4.8(H) 0.0 - 4.4 LAB CHEMISTRY METHOD 10/02/2024 12:37 PM EDT [facility] Blood Venous blood specimen / Unknown Venipuncture / Unknown 10/02/2024 9:14 AM EDT 10/02/2024 9:14 AM EDT us Katt ARCE LAB BLOOD ORDERABLES Final Resul t [facility] [address] [place] [address], [place] [phone] * Hemoglobin A1c (10/02/2024 9:14 AM EDT) Hemoglobin A1C 5.7 <6.5 % LAB CHEMISTRY METHOD 10/02/2024 1:54 PM EDT [facility] Mean Bld Glu Estim. 117 mg/dL LAB CHEMISTRY METHOD 10/02/2024 1:54 PM EDT [facility] Blood Venous blood specimen / Unknown Venipuncture / Unknown 10/02/2024 9:14 AM EDT 10/02/2024 9:14 AM EDT us Katt ARCE LAB BLOOD ORDERABLES Final Resul t [facility] ([facility] [address] [place] [address], from Last 3 Months or Most Recently Relevant to Health Maintenance Insurance [facility] Care Teams Automated Equipment Engineer Technician Relationship Specialty Start Date End Date Alicia Pillai MD [address] [place] [phone] PCP - General Internal Medicine 02/04/15
--- OUTSIDE RECORDS SUMMARY | 2025-02-10 18:28 | XMS_ITS | Encounter Summary ---
Author Organization [facility] Address [address] [place] [phone] Phone Care Team Providers Care Secondary Teacher Name Role Phone Alicia Pillai MD Primary Care Provider [phone] Manny Gandhi MD Unavailable [phone] Manny Gandhi MD Unavailable [phone] Mary Post MD Unavailable [phone] Encounter Details Date Type Department Care Team (Late st Contact Info) Description 01/03/2017 Procedure Pass DF IMG OUTSIDE IMG [address] [place] [address] Social History Tobacco Use Types Packs/Day Years [...] 2:00 PM EST [facility] [address] [place] [address], [address] [place] [address] Carrie Walsh MD [address] [place] [phone] [email or web address] 05/21/2025 3:00 PM EST Office Visit [facility], Division of Hematologic Oncology, [facility] [address] [facility] [address] [place] [address], [address] [place] [address] Robbin Treadwell MD [address] [place] [phone] [email or web address] documented as of this encounter Visit Diagnoses Not on filedocumented in this encounter Care Teams Secondary Teacher Relationship Specialty Start Date End Date Alicia Pillai MD [address] [place] [phone] PCP - General Internal Medicine 05/11/15 Manny Gandhi MD [address] [place] [phone] [email or web address] [email or web address] 07/21/15 02/21/17 Manny Gandhi MD [address] [place] [phone] [email or web address] Referring Physician Hematology 07/22/15 7 Mary Post MD [address] [place] [phone] [email or web address] Primary Oncologist Internal Medicine 02/22/17 documented as of this encounter Additional Source Comments The information contained in this document represents components of the legal health record. It is not the complete legal health record.[facility]
--- OUTSIDE RECORDS SUMMARY | 2025-02-10 18:28 | XMS_ITS ---
Author Organization [facility] Address [address] [place] [address] Care Team Providers Care Rn Family Name Role Phone Fernando Pillai MD Primary Care Provider [phone] Active Problems Problem Noted Date Diagnosed Date [...] Overview: Psoriasis with arthropathy Current Oncology Plans BCN OP RITUXIMAB (IV/SC) WEEKLY X4* Plan [...] Sod Suc (PF) (Solu-CORTEF)riTUXimab-hyal uronidase (RITUXAN HYCELA) 1400-78393 MG -UT/11.7MLriTUXimab-pvvr (RUXIENCE) infusion (Outpatient record)Saline Flush [...] (Solu-CORTEF) injection (PF) 100 mgriTUXimab-hyaluronidase (RITUXAN HYCELA) 1400-07253 MG -UT/11.7ML subcutaneous injection 1,400 mgSaline Flush [...] (Solu-CORTEF) injection (PF) 100 mgriTUXimab-hyaluronidase (RITUXAN HYCELA) 1400-14489 MG -UT/11.7ML subcutaneous injection 1,400 mgSaline Flush 0.9 % injection 1 Syringesodium chloride 0.9% (NS) infusionsodium chloride 0.9% bolus (NS) 500 mL Other Current Plans [facility] IVIG (GAMMAGARD) (ADULT)* Plan Start Date:03/17/2022 Plan Provider:Mary Jovel MD Linked Problems Hypogammaglobulinemia (HCC) Treatment Medications acetaminophen (TYLENOL)albut ladonna (PROVENTIL)dexamethasone (DECADRON)diphenhydrAMINE (BENADRYL)EPINEPHrine (Anaphylaxis) (ADRENALIN)famotidine (PF) (PEPCID)Hydrocortisone Sod Suc (PF) (Solu-CORTEF)Immune Globulin (Human)immune globulin (Human) (GAMMAGARD)meperidine (DEMEROL) 25 MG/MLSaline Flush 0.9 %sodium chloride (NS) 0.9 %sodium chloride 0.9% bolus (NS) Past Plans Radiation Treatments * No radiation treatments are documented for this patient in [facility]. Treatments may have been administered in another system.
== END 2025-02-10 13:49 | disposition home or self-care (01) ==
LOC: HO.BBR 13:48
PROVIDERS: PCP Registered Nurse; Visit Provider Internal Medicine
DX: Z13.89 Encounter for screening for other disorder (principal)